=== PATIENT | female | born 1945 | race African-American/Black ===

== ENCOUNTER 2016-09-18 19:21 | Inpatient (IN) | payer OTHER, MEDICARE ==
[~2016-09-18] VITALS: Ht 167.6 cm; Wt 67.6 kg
[2016-09-18 20:30] VITALS: BP 110/71
--- NOTE | 2016-09-18 20:41 | Emergency Room Report ---
History of Present Illness General Chief Complaint: General Complaint Source: Patient, Medical Record Present Illness HPI Patient presents with complaints of right lower extremity pain and swelling Ongoing for the past several days Patient had a d-dimer obtained as an outpatient which was elevated and sent in for further eval Denies any chest pain or shortness of breath patient has a history of previous DVT, but it is unclear the specific location Denies any chest pain denies any pleurisy Denies any back or flank pain Pain in the right upper thigh is 5/10 worse with movement Allergies: Coded Allergies: No Known Allergies (Unverified , 09/18/16) Patient History Past Medical History: see triage record Pertinent Family History: none Reviewed Nursing Documentation: PMH: Agreed, PSxH: Agreed Nursing Documentation-PMH Hx Hypertension: Yes History Of Psychiatric Problem: Yes - Major depressive D/O Hx Cerebrovascular Accident: Yes - Left hemiplegia, hemiparesis Review of Systems All Other Systems: negative except mentioned in HPI Physical Exam Vital Signs Date Time Temp Pulse Resp B/P Pulse Ox O2 Delivery O2 Flow Rate FiO2 09/18/16 19:23 99.3 95 18 110/71 97 Room Air Sp02 EP Interpretation: reviewed, normal General Appearance: no apparent distress Head: normocephalic, atraumatic Eyes: bilateral eye PERRL ENT: normal pharynx, no angioedema Neck: full range of motion, supple Respiratory: lungs clear, normal breath sounds Cardiovascular #1: regular rate, rhythm, other - Dependent edema on both lower extremity Gastrointestinal: non tender, soft, no mass Musculoskeletal: other - Right lower extremity appears mildly more swollen than the left, pulses are intact distally Neurologic: alert, responsive Skin: other - As above Lymphatic: no adenopathy Medical Decision Making Diagnostic Impression: Primary Impression: DVT (deep venous thrombosis) Additional Impressions: Sepsis UTI (urinary tract infection) ER Course Patient's complex requiring blood work and imaging study Initially the right-sided vascular ultrasound does reveal acute DVT Patient is provided with Lovenox for this Further workup reveals leukocytosis and large amount of the UTI Patient was given further hydration and antibiotics Given the initial tachycardia in line with sepsis Patient's blood pressure is otherwise appropriate I do not feel the patient had any signs of pulmonary embolism as there is no chest pain or shortness of breath And patient admitted for further inpatient care , Labs Test 09/18/16 20:30 09/18/16 22:15 09/18/16 22:30 White Blood Count 19.1 K/UL (4.8-10.8) Red Blood Count 5.48 M/UL (4.20-5.40) Hemoglobin 12.4 G/DL (12.0-16.0) Hematocrit 41.3 % (37.0-47.0) Mean Corpuscular Volume 75 FL (80-99) Mean Corpuscular Hemoglobin 22.7 PG (27.0-31.0) Mean Corpuscular Hemoglobin Concent 30.1 G/DL (32.0-36.0) Red Cell Distribution Width 14.0 % (11.6-14.8) Platelet Count 441 K/UL (150-450) Mean Platelet Volume 7.0 FL (6.5-10.1) Neutrophils (%) (Auto) % (45.0-75.0) Lymphocytes (%) (Auto) % (20.0-45.0) Monocytes (%) (Auto) % (1.0-10.0) Eosinophils (%) (Auto) % (0.0-3.0) Basophils (%) (Auto) % (0.0-2.0) Differential Total Cells Counted 100 Neutrophils % (Manual) 74 % (45-75) Lymphocytes % (Manual) 19 % (20-45) Monocytes % (Manual) 3 % (1-10) Eosinophils % (Manual) 2 % (0-3) Basophils % (Manual) 2 % (0-2) Band Neutrophils 0 % (0-8) Platelet Estimate Increased Platelet Morphology Normal Polychromasia 1+ Anisocytosis 1+ Microcytosis 1+ Prothrombin Time 11.2 SEC (9.30-11.50) Prothromb Time International Ratio 1.1 (0.9-1.1) Activated Partial Thromboplast Time 28 SEC (23-33) Urine Color Yellow Urine Appearance Clear Urine pH 5 (4.5-8.0) Urine Specific [place] 1.020 (1.005-1.035) Urine Protein 3+ (NEGATIVE) Urine Glucose (UA) Negative (NEGATIVE) Urine Ketones Negative (NEGATIVE) Urine Occult Blood 5+ (NEGATIVE) Urine Nitrite Negative (NEGATIVE) Urine Bilirubin Negative (NEGATIVE) Urine Urobilinogen Normal MG/DL (0.0-1.0) Urine Leukocyte Esterase 3+ (NEGATIVE) Urine RBC 0-2 /HPF (0 - 2) Urine WBC Tntc /HPF (0 - 2) Urine Squamous Epithelial Cells Few /LPF (NONE/OCC) Urine Bacteria Many /HPF (NONE) Sodium Level 138 mEQ/L (135-145) Potassium Level 4.8 mEQ/L (3.4-4.9) Chloride Level 100 mEQ/L (98-107) Carbon Dioxide Level 22 mEQ/L (20-30) Anion Gap 16 (5-15) Blood Urea Nitrogen 11 mg/dL (7-23) Creatinine 0.7 mg/dL (0.5-0.9) Estimat Glomerular Filtration Rate mL/min (>60) Glucose Level 147 mg/dL (74-106) Calcium Level 8.8 mg/dL (8.6-10.2) Total Bilirubin 0.2 mg/dL (0.0-1.2) Aspartate Amino Transf (AST/SGOT) 16 U/L (5-40) Alanine Aminotransferase (ALT/SGPT) 8 U/L (3-33) Alkaline Phosphatase 47 U/L (35-104) Total Creatine Kinase 59 U/L (26-140) Creatine Kinase MB 2.6 ng/mL (< 3.8) Creatine Kinase MB Relative Index 4.4 Troponin I < 0.30 ng/mL (<=0.30) Total Protein 7.7 g/dL (6.6-8.7) Albumin 2.9 g/dL (3.5-5.2) Globulin 4.8 g/dL Albumin/Globulin Ratio 0.6 (1.0-2.7) Rhythm Strip Diag. Results EP Interpretation: yes Rate: 120 Rhythm: no PVC's, no ectopy, other - sinus tach Other X-Ray Diagnostic Results Other X-Ray Diagnostic Results #1: EP Interpretation: Yes Findings: no fractures, no dislocation, no soft tissue swelling Number of Views: 2 - right hip Other X-Ray Diagnostic Results #2: EP Interpretation: Yes Findings: no fractures, no dislocation, no soft tissue swelling Number of Views: 2 - right femur CT/MRI/US Diagnostic Results CT/MRI/US Diagnostic Results : Impression Right lower extremity venous ultrasound: Positive for acute DVT Last Vital Signs Date Time Temp Pulse Resp B/P Pulse Ox O2 Delivery O2 Flow Rate FiO2 09/18/16 20:30 99.3 95 18 110/71 97 Room Air Status: improved Disposition: ADMITTED INPATIENT Condition: Serious ELIE HAMMONDS D.O. Sep 18, 2016 20:40
[2016-09-18 20:58] LABS: MEAN CORPUSCULAR HEMOGLOBIN 22.7 PG (27.0-31.0); MEAN CORPUSCULAR HGB CONC 30.1 G/DL (32.0-36.0); MEAN CORPUSCULAR VOLUME 75 FL (80-99); PLATELET COUNT 441 K/UL (150-450); RED BLOOD COUNT 5.48 M/UL (4.20-5.40); WHITE BLOOD COUNT 19.1 K/UL (4.8-10.8)
[2016-09-18 21:00] VITALS: BP 139/99
[2016-09-18] MEDS ORDERED: Enoxaparin 80mg Inj SUBQ SCH (21:00)
[2016-09-18] MEDS ORDERED: cefTRIAXone 1 GM in NS 55 ML IVPB ONE (21:00)
[2016-09-18] MEDS ORDERED: Norco 5mg/325mg tab ORAL ONE (21:00)
[2016-09-18 21:11] LABS: INR 1.1 (0.9-1.1); PROTHROMBIN TIME 11.2 SEC (9.30-11.50)
[2016-09-18] MEDS ORDERED: Heparin 25,000u/D5W 500ml 500 ML IV SCH (21:45)
[2016-09-18] MEDS ORDERED: Nitroglycerin Subl 0.4mg tab (Bottle Of 25) SL PRN (21:45)
[2016-09-18] MEDS ORDERED: DuoNeb 0.5-3(2.5)mg/3ml neb HHN PRN (21:45)
[2016-09-18] MEDS ORDERED: Mylanta II UD 30ml ORAL PRN (21:45)
[2016-09-18] MEDS ORDERED: Miralax 17gm pkt ORAL PRN (21:45)
[2016-09-18] MEDS ORDERED: Morphine Sulfate 2mg/ml Inj IVP PRN (21:45)
[2016-09-18 21:46] LABS: BASOPHILS % (MANUAL) 2 % (0-2); EOSINOPHILS % (MANUAL) 2 % (0-3); LYMPHOCYTES % (MANUAL) 19 % (20-45); NEUTROPHILS % (MANUAL) 74 % (45-75); TOTAL CELLS COUNTED 100
[2016-09-18 21:47] LABS: ANISOCYTOSIS 1+; BAND NEUTROPHILS % (MANUAL) 0 % (0-8); MICROCYTES 1+; PLATELET ESTIMATE INCREASED; PLATELET MORPHOLOGY NORMAL; POLYCHROMASIA 1+
[2016-09-18] MEDS ORDERED: FERROUS SULFAT325 MG ORAL (21:59)
[2016-09-18] MEDS ORDERED: COREG12.5 MG ORAL (21:59)
[2016-09-18] MEDS ORDERED: ARICEPT10 MG ORAL (21:59)
[2016-09-18] MEDS ORDERED: DOCUSATE SODIU100 M2 ORAL (21:59)
[2016-09-18] MEDS ORDERED: CYMBALTA20 MG ORAL (21:59)
[2016-09-18] MEDS ORDERED: TRAZODONE HCL150 MG ORAL (21:59)
[2016-09-18] MEDS ORDERED: LIPITOR20 MG ORAL (21:59)
[2016-09-18] MEDS ORDERED: TYLENOL650 MG/20. ORAL (21:59)
[2016-09-18] MEDS ORDERED: VICODIN 5-3001 EACH ORAL (21:59)
[2016-09-18] MEDS ORDERED: VIT D (21:59)
[2016-09-18] MEDS ORDERED: MULTI VITAMIN1 EACH ORAL (21:59)
[2016-09-18] MEDS ORDERED: DULCOLAX10 MG RC (21:59)
[2016-09-18] MEDS ORDERED: PEPCID20 MG ORAL (21:59)
[2016-09-18] MEDS ORDERED: ACETAMINOPHEN120 MG RECTAL (21:59)
[2016-09-18] MEDS ORDERED: FLEET ENEMA133 M1 RC (21:59)
[2016-09-18] MEDS ORDERED: VIT C (21:59)
[2016-09-18] MEDS ORDERED: MOM30 ML ORAL (21:59)
[2016-09-18] MEDS ORDERED: QUINAPRIL HCL40 MG PO (21:59)
[2016-09-18 22:00] VITALS: BP 150/91
[2016-09-18 22:52] LABS: TROPONIN I < 0.30 ng/mL (<=0.30)
[2016-09-18 22:54] LABS: APPEARANCE,URINE CLEAR; KETONES,URINE NEGATIVE (NEGATIVE); LEUKOCYTE ESTERASE ,URINE 3+ (NEGATIVE); NITRITE,URINE NEGATIVE (NEGATIVE); PH,URINE 5 (4.5-8.0); PROTEIN,URINE 3+ (NEGATIVE); UROBILINOGEN,URINE NORMAL MG/DL (0.0-1.0)
[2016-09-18 22:55] LABS: ALANINE AMINOTRANSFERASE 8 U/L (3-33); ALBUMIN/GLOBULIN RATIO 0.6 (1.0-2.7); ANION GAP 16 (5-15); ASPARTATE AMINO TRANSFERASE 16 U/L (5-40); CALCIUM 8.8 mg/dL (8.6-10.2); CARBON DIOXIDE 22 mEQ/L (20-30); CHLORIDE 100 mEQ/L (98-107); CREATININE 0.7 mg/dL (0.5-0.9); HEMOLYSIS 1; POTASSIUM 4.8 mEQ/L (3.4-4.9); SODIUM 138 mEQ/L (135-145); TOTAL PROTEIN 7.7 g/dL (6.6-8.7)
[2016-09-18 23:06] LABS: CKMB 2.6 ng/mL (< 3.8)
[2016-09-18 23:19] LABS: RBC,URINE 0-2 /HPF (0 - 2); SQUAMOUS EPITHELIAL CELL,UR FEW /LPF (NONE/OCC); WBC,URINE TNTC /HPF (0 - 2)
[2016-09-18 23:20] LABS: BACTERIA,URINE MANY /HPF
[2016-09-19] VITALS (8 sets, daily range): BP systolic 138–178; BP diastolic 79–98
[2016-09-19 07:48] LABS: BASOPHILS % (AUTO) 0.6 % (0.0-2.0); EOSINOPHILS % (AUTO) 1.3 % (0.0-3.0); LYMPHOCYTES % (AUTO) 22.8 % (20.0-45.0); MEAN CORPUSCULAR HEMOGLOBIN 22.7 PG (27.0-31.0); MEAN CORPUSCULAR HGB CONC 30.7 G/DL (32.0-36.0); MEAN CORPUSCULAR VOLUME 74 FL (80-99); MEAN PLATELET VOLUME 6.7 FL (6.5-10.1); MONOCYTES % (AUTO) 8.8 % (1.0-10.0); NEUTROPHILS % (AUTO) 66.4 % (45.0-75.0); PLATELET COUNT 366 K/UL (150-450); RED BLOOD COUNT 4.49 M/UL (4.20-5.40); RED CELL DISTRIBUTION WIDTH 13.5 % (11.6-14.8); WHITE BLOOD COUNT 14.9 K/UL (4.8-10.8)
[2016-09-19] MEDS ORDERED: Heparin 25,000u/D5W 500ml 500 ML IV SCH (08:00)
[2016-09-19 08:03] LABS: INR 1.1 (0.9-1.1); PROTHROMBIN TIME 11.4 SEC (9.30-11.50)
[2016-09-19 08:06] LABS: ALANINE AMINOTRANSFERASE 8 U/L (3-33); ALBUMIN/GLOBULIN RATIO 0.6 (1.0-2.7); ANION GAP 13 (5-15); ASPARTATE AMINO TRANSFERASE 14 U/L (5-40); CALCIUM 8.6 mg/dL (8.6-10.2); CARBON DIOXIDE 24 mEQ/L (20-30); CHLORIDE 100 mEQ/L (98-107); CREATININE 0.7 mg/dL (0.5-0.9); HEMOLYSIS 0; POTASSIUM 4.1 mEQ/L (3.4-4.9); SODIUM 137 mEQ/L (135-145); TOTAL PROTEIN 7.6 g/dL (6.6-8.7)
--- NOTE | 2016-09-19 11:53 | Diagnostic Imaging Report ---
Indications: hip pain Findings: Two views of the right hip were obtained. Bone mineralization is abnormal with somewhat mottled appearance throughout the osseous structures. The mineralization is diffuse. There is no acute fracture identified. Center vascular calcifications are present. Narrowing of the right hip joint space and osteophytes noted. Impression: No acute fracture appreciated. Moderate to severe osteopenia
--- NOTE | 2016-09-19 12:01 | History and Physical ---
History of Present Illness General Date patient seen: Sep 19, 2016 Reason for Hospitalization: General Complaint Present Illness HPI 71 year old female with hx of CVA, hemiplegia, depression, [facility] presents with complaints of right lower extremity pain and swelling Ongoing for the past several days, she had a d-dimer obtained as an outpatient which was elevated and sent in for further evaluation. Pt had a venous doppler in ER showing acute DVT ( reportedly). she was also found to have UTI with leukocytosis. Allergies: Coded Allergies: No Known Allergies (Unverified , 09/18/16) Medication History Scheduled Atorvastatin Calcium* (Lipitor*), 20 MG ORAL BEDTIME, (Reported) Carvedilol (Coreg), 12.5 MG ORAL EVERY 12 HOURS, (Reported) Docusate Sodium (Docusate Sodium), 100 MG ORAL TWICE A DAY, (Reported) Donepezil Hcl* (Aricept*), 10 MG ORAL DAILY, (Reported) Duloxetine (Cymbalta), 90 MG ORAL DAILY, (Reported) Famotidine (Pepcid), 20 MG ORAL BEDTIME, (Reported) Ferrous Sulfate* (Ferrous Sulfate*), 325 MG ORAL DAILY, (Reported) Magnesium Hydroxide (Milk of Magnesia), 30 ML ORAL DAILY, (Reported) Multivitamin (Multi Vitamin Daily), 1 TAB ORAL DAILY, (Reported) Trazodone* (Trazodone*), 150 MG ORAL BEDTIME, (Reported) Scheduled PRN Acetaminophen (Acetaminophen), 650 MG ORAL Q4HR PRN for Prn Headache/Temp > 101, (Reported) Acetaminophen* (Tylenol*), 650 MG RECTAL Q4H PRN for Mild Pain/Temp > 100.5, ( Reported) Hydrocodone Bit/Acetaminophen (Vicodin 5-300 Mg Tablet), 1 TAB ORAL Q6H PRN for For Pain, (Reported) Miscellaneous Medications Bisacodyl (Dulcolax), 10 MG RC, (Reported) Na Phos,M-B/Na Phos,Di-Ba (Fleet Enema), 133 ML RC, (Reported) Quinapril Hcl (Quinapril Hcl), 40 MG PO, (Reported) [vit c/ vit d], (Reported) Patient History Healthcare decision maker Resuscitation status Full Code Advanced Directive on File Yes Past Medical/Surgical History Past Medical/Surgical History: (1) History of CVA (cerebrovascular accident) (2) Hemiplegia (3) Depression Social History Social History: (1) [facility] resident Review of Systems All Other Systems: negative except mentioned in HPI Physical Exam General Appearance: WD/WN Lines, tubes and drains: peripheral HEENT: normocephalic, atraumatic Neck: non-tender, normal alignment Respiratory/Chest: chest wall non-tender, lungs clear Breasts: no masses Cardiovascular/Chest: normal peripheral pulses, normal rate Abdomen: normal bowel sounds Genitourinary/Rectal: normal genital exam Extremities: normal range of motion Last 24 Hour Vital Signs Date Time Temp Pulse Resp B/P Pulse Ox O2 Delivery O2 Flow Rate FiO2 09/19/16 08:00 97.9 95 17 161/87 96 Room Air 09/19/16 07:50 101 20 Room Air 21 09/19/16 04:00 98.4 101 18 152/97 98 Room Air 09/19/16 04:00 97 09/19/16 02:39 98 20 Room Air 21 09/19/16 00:00 97.0 98 20 138/90 97 Room Air 09/19/16 00:00 90 09/18/16 23:08 97 09/18/16 22:46 99.3 107 18 150/91 99 Room Air 09/18/16 22:00 107 18 150/91 99 Room Air 09/18/16 21:10 99.3 09/18/16 21:00 122 22 139/99 97 Room Air 09/18/16 20:30 99.3 134 18 110/71 97 Room Air 09/18/16 19:23 99.3 95 18 110/71 97 Room Air Intake and Output 09/18/16 09/19/16 19:00 07:00 Intake Total 1255 ml Output Total 120 ml Balance 1135 ml Intake Oral 200 ml IV Total 1055 ml Output Urine Total 120 ml # Voids 1 Laboratory Tests Test 09/18/16 20:30 09/18/16 22:15 09/18/16 22:30 09/19/16 07:05 White Blood Count 19.1 K/UL (4.8-10.8) H 14.9 K/UL (4.8-10.8) H Red Blood Count 5.48 M/UL (4.20-5.40) H 4.49 M/UL (4.20-5.40) Hemoglobin 12.4 G/DL (12.0-16.0) 10.2 G/DL (12.0-16.0) L Hematocrit 41.3 % (37.0-47.0) 33.2 % (37.0-47.0) L Mean Corpuscular Volume 75 FL (80-99) L 74 FL (80-99) L Mean Corpuscular Hemoglobin 22.7 PG (27.0-31.0) L 22.7 PG (27.0-31.0) L Mean Corpuscular Hemoglobin Concent 30.1 G/DL (32.0-36.0) L 30.7 G/DL (32.0-36.0) L Red Cell Distribution Width 14.0 % (11.6-14.8) 13.5 % (11.6-14.8) Platelet Count 441 K/UL (150-450) 366 K/UL (150-450) Mean Platelet Volume 7.0 FL (6.5-10.1) 6.7 FL (6.5-10.1) Neutrophils (%) (Auto) % (45.0-75.0) 66.4 % (45.0-75.0) Lymphocytes (%) (Auto) % (20.0-45.0) 22.8 % (20.0-45.0) Monocytes (%) (Auto) % (1.0-10.0) 8.8 % (1.0-10.0) Eosinophils (%) (Auto) % (0.0-3.0) 1.3 % (0.0-3.0) Basophils (%) (Auto) % (0.0-2.0) 0.6 % (0.0-2.0) Differential Total Cells Counted 100 Neutrophils % (Manual) 74 % (45-75) Lymphocytes % (Manual) 19 % (20-45) L Monocytes % (Manual) 3 % (1-10) Eosinophils % (Manual) 2 % (0-3) Basophils % (Manual) 2 % (0-2) Band Neutrophils 0 % (0-8) Platelet Estimate Increased H Platelet Morphology Normal Polychromasia 1+ Anisocytosis 1+ Microcytosis 1+ Prothrombin Time 11.2 SEC (9.30-11.50) 11.4 SEC (9.30-11.50) Prothromb Time International Ratio 1.1 (0.9-1.1) 1.1 (0.9-1.1) Activated Partial Thromboplast Time 28 SEC (23-33) 31 SEC (23-33) Urine Color Yellow Urine Appearance Clear Urine pH 5 (4.5-8.0) Urine Specific [place] 1.020 (1.005-1.035) Urine Protein 3+ (NEGATIVE) H Urine Glucose (UA) Negative (NEGATIVE) Urine Ketones Negative (NEGATIVE) Urine Occult Blood 5+ (NEGATIVE) H Urine Nitrite Negative (NEGATIVE) Urine Bilirubin Negative (NEGATIVE) Urine Urobilinogen Normal MG/DL (0.0-1.0) Urine Leukocyte Esterase 3+ (NEGATIVE) H Urine RBC 0-2 /HPF (0 - 2) Urine WBC Tntc /HPF (0 - 2) H Urine Squamous Epithelial Cells Few /LPF (NONE/OCC) Urine Bacteria Many /HPF (NONE) H Sodium Level 138 mEQ/L (135-145) 137 mEQ/L (135-145) Potassium Level 4.8 mEQ/L (3.4-4.9) 4.1 mEQ/L (3.4-4.9) Chloride Level 100 mEQ/L (98-107) 100 mEQ/L (98-107) Carbon Dioxide Level 22 mEQ/L (20-30) 24 mEQ/L (20-30) Anion Gap 16 (5-15) H 13 (5-15) Blood Urea Nitrogen 11 mg/dL (7-23) 13 mg/dL (7-23) Creatinine 0.7 mg/dL (0.5-0.9) 0.7 mg/dL (0.5-0.9) Estimat Glomerular Filtration Rate mL/min (>60) mL/min (>60) Glucose Level 147 mg/dL (74-106) H 112 mg/dL (74-106) H Calcium Level 8.8 mg/dL (8.6-10.2) 8.6 mg/dL (8.6-10.2) Total Bilirubin 0.2 mg/dL (0.0-1.2) 0.2 mg/dL (0.0-1.2) Aspartate Amino Transf (AST/SGOT) 16 U/L (5-40) 14 U/L (5-40) Alanine Aminotransferase (ALT/SGPT) 8 U/L (3-33) 8 U/L (3-33) Alkaline Phosphatase 47 U/L (35-104) 46 U/L (35-104) Total Creatine Kinase 59 U/L (26-140) Creatine Kinase MB 2.6 ng/mL (< 3.8) Creatine Kinase MB Relative Index 4.4 Troponin I < 0.30 ng/mL (<=0.30) Total Protein 7.7 g/dL (6.6-8.7) 7.6 g/dL (6.6-8.7) Albumin 2.9 g/dL (3.5-5.2) L 2.9 g/dL (3.5-5.2) L Globulin 4.8 g/dL 4.7 g/dL Albumin/Globulin Ratio 0.6 (1.0-2.7) L 0.6 (1.0-2.7) L Height (Feet): 5 Height (Inches): 6.00 Weight (Pounds): 149 Medications Current Medications Medications (Trade) Dose Ordered Sig/Claudia Route PRN Reason Start Time Stop Time Status Last Admin Dose Admin Acetaminophen (Tylenol) 650 mg Q4H PRN ORAL fever 09/18/16 21:45 10/18/16 21:44 09/19/16 11:29 Al Hydroxide/Mg Hydroxide (Mylanta II) 30 ml Q6H PRN ORAL dyspepsia 09/18/16 21:45 10/18/16 21:44 Albuterol/ Ipratropium 3 ml 3 ml EVERY 8 HOURS PRN HHN Shortness of Breath 09/18/16 21:45 09/23/16 21:44 Dextrose (Dextrose 50%) STAT PRN IV Hypoglycemia 09/18/16 21:45 10/18/16 21:44 Heparin Sodium/ Dextrose (Heparin) 500 ml @ 15.894 mls/ hr adjust per protocol IV 09/19/16 08:00 10/19/16 07:59 09/19/16 08:51 Morphine Sulfate (Morphine Sulfate) 2 mg EVERY 8 HOURS PRN IVP Moderate Pain (Pain Scale 4-6) 09/18/16 21:45 09/25/16 21:44 Nitroglycerin (Ntg) 0.4 mg Q5M X 3 DOSES PRN SL Prn Chest Pain 09/18/16 21:45 10/18/16 21:44 Ondansetron HCl (Zofran) 4 mg Q6H PRN IVP Nausea & Vomiting 09/18/16 21:45 10/18/16 21:44 Polyethylene Glycol (Miralax) 17 gm HSPRN PRN ORAL Constipation 09/18/16 21:45 10/18/16 21:44 Temazepam (Restoril) 15 mg HSPRN PRN ORAL Insomnia 09/18/16 21:45 09/25/16 21:44 Assessment/Plan Problem List: (1) Sepsis ICD Codes: A41.9 - Sepsis, unspecified organism SNOMED: 14577327 (2) UTI (urinary tract infection) ICD Codes: N39.0 - Urinary tract infection, site not specified SNOMED: 07377108 Qualifiers: Qualified Codes: N30.00 - Acute cystitis without hematuria (3) DVT (deep venous thrombosis) ICD Codes: I82.409 - Acute embolism and thrombosis of unspecified deep veins of unspecified lower extremity SNOMED: 464851339 Qualifiers: Qualified Codes: I82.411 - Acute embolism and thrombosis of right femoral vein (4) Hemiplegia ICD Codes: G81.90 - Hemiplegia, unspecified affecting unspecified side SNOMED: 36853848 (5) Depression ICD Codes: F32.9 - Major depressive disorder, single episode, unspecified SNOMED: 97702810 Qualifiers: Qualified Codes: F32.9 - Major depressive disorder, single episode, unspecified (6) History of CVA (cerebrovascular accident) ICD Codes: Z86.73 - Personal history of transient ischemic attack (TIA), and cerebral infarction without residual deficits SNOMED: 076725942 Assessment/Plan heparin IV antibiotics urine for c/s pain management monitor BP and heart rate MARYAM BATES Sep 19, 2016 12:01
[2016-09-19] MEDS ORDERED: Donepezil 10mg tab ORAL SCH (13:00)
--- NOTE | 2016-09-19 13:33 | Diagnostic Imaging Report ---
Indication: Chest Pain Comparison: None A single view chest radiograph was obtained. Findings: No definite infiltrate or pulmonary vascular congestion identified. The heart is enlarged. The aorta is mildly enlarged consistent with atherosclerotic vascular disease. The bones are osteopenic. Impression: No acute disease
--- NOTE | 2016-09-19 14:09 | Consultation ---
Consult Note Consult Note ID CONSULT: Dict# [id number] Assessment/Plan ASSESSMENT: 71 y/o female with: // Pyuria, probable UTI - UCx pending // Leukocytosis - improved, afebrile ( DVT contributing ) // Acute RLE DVT - doppler: acute thrombus superficial femoral to popliteal veins // h/o CVA, hemiplegia // [facility] resident // NKDA // Full Code PLAN: - start cefepime d# / -5 urinary coverage. Ok to complete course orally, if sensitive ( 09/18 SP rocephin x1 ) - f/u cultures, adjust ABX accordingly - monitor CBC, temperatures - monitor BMP - monitor CXR - anticoagulation per primary Thanks! Will follow MARA HASSAN Sep 19, 2016 14:09
[2016-09-19] MEDS ORDERED: Nitroglycerin Subl 0.4mg tab (Bottle Of 25) SL PRN (15:00)
--- NOTE | 2016-09-19 15:40 | Diagnostic Imaging Report ---
Indication: Hip pain Technique: Continuous helical imaging of the right femur was performed in the transaxial plane. Coronal 2-D reformatted images were also generated. Study obtained in a Siemens Sensation [address] total DLP 557 mGycm CTD/vol 9 mGy Comparison: None Findings: The CT examination confirms presence of a nondisplaced fracture involving the metadiaphysis of the distal femur along the medial aspect of the femur. This was suspected on plain film. This is seen just above the medial femoral condyle. The bones are diffusely and severely osteopenic. Extensive vascular consultations are present. The right femoral neck and hip appear intact. Moderate feces noted. Generalized muscular atrophy noted within the right lower extremity. Impression: Acute nondisplaced fracture of the right distal femur in the area of the metadiaphysis. Severe osteopenia Atherosclerotic vascular disease
[2016-09-19] MEDS ORDERED: Mylanta II UD 30ml ORAL PRN (15:45)
[2016-09-19] MEDS ORDERED: Heparin 5000 units/ml inj IV ONE (16:00)
[2016-09-19] MEDS ORDERED: Cefepime HCl 1 GM in D5W 55 ML IVPB SCH (16:00)
--- NOTE | 2016-09-19 16:01 | Diagnostic Imaging Report ---
Indication: Pain Findings: 2 views of the right femur were obtained. Bones are diffusely osteopenic. There is a questionable fracture involving the midshaft extending to the lower part of the femur. If real, the fracture is nondisplaced. Recommend CT for further evaluation. Extensive vascular calcifications are present. Impression: Questionable distal femur fracture. Recommend CT or MR for further evaluation.
[2016-09-19] MEDS: Cefepime HCl 1 GM in D5W 55 ML IVPB SCH (17:07)
[2016-09-19] MEDS: Heparin 25,000u/D5W 500ml 500 ML IV SCH (17:08)
--- NOTE | 2016-09-19 19:58 | Consultation ---
DATE OF CONSULTATION: 09/19/2016 INFECTIOUS DISEASE CONSULTATION REQUESTING PHYSICIAN: Otoniel Nicole M.D. REASON FOR CONSULTATION: Urinary tract infection. HISTORY OF PRESENT ILLNESS: This is a 71-year-old female, [facility] resident, admitted on 09/18/2015 with right lower extremity pain and elevated D-dimer. A Doppler confirmed acute thrombus of the right superficial femoral to popliteal veins. Urinalysis also suggests probable UTI with pyuria and bacteriuria. She received Rocephin x1 in the emergency room with associated leukocytosis, now improved and no fevers. Urine culture is pending and ID now consulted to assist in management. PAST MEDICAL HISTORY: 1. History of stroke with hemiplegia. 2. Osteopenia. PAST SURGICAL HISTORY: None. MEDICATIONS: 1. Status post Rocephin x1. 2. Cymbalta. 3. Lipitor. 4. Coreg. 5. Trazodone. 6. Aricept. 7. Subcutaneous heparin. ALLERGIES: No known drug allergies. SOCIAL HISTORY: The patient is resident of a [facility]. No active tobacco, alcohol, or illicit drug abuse. FAMILY HISTORY: Noncontributory. REVIEW OF SYSTEMS: As per history of present illness. Ten systems reviewed. All pertinent positives and negatives noted. PHYSICAL EXAMINATION: GENERAL: No apparent distress. Nontoxic appearing. VITAL SIGNS: Maximum temperature 99.3 degrees, blood pressure 148/86, heart rate in the 90s, respiratory rate is 17 and saturating 95% on room air. CARDIOVASCULAR: Regular rate and rhythm. No murmurs. PULMONARY: Clear to auscultation bilaterally. ABDOMEN: Bowel sounds present. Soft, nondistended, and nontender. Christianson catheter in place with cloudy urine. EXTREMITIES: Right lower extremity tenderness and swelling. LABORATORY AND DIAGNOSTIC DATA: White blood cell count 14.9 decreased from 19.1 with normal differential, hemoglobin 10.2, and platelets 366,000. Sodium 137, potassium 4.1, chloride 100, bicarbonate 24, BUN 13, and creatinine 0.7. Liver function tests within normal limits. Troponin negative x1. Microbiology, on 09/18/2016, urine culture pending. Imaging 1. On 09/19/2016, chest x-ray no acute findings. 2. On 09/19/2016, bilateral lower extremity Doppler ultrasound positive for acute thrombosis of right superficial femoral to popliteal vein. 3. On 09/18/2016, echocardiogram ejection fraction 55% with trace aortic and tricuspid regurgitation and mild mitral and pulmonic valve regurgitation and grade 1 diastolic dysfunction. ASSESSMENT: 1. Pyuria and probable urinary tract infection. Urine culture is pending. 2. Leukocytosis, improved and afebrile. Deep vein thrombosis is contributing. 3. Acute right lower extremity deep vein thrombosis. 4. History of stroke and hemiplegia. 5. shelter resident. 6. No known drug allergies. 7. Full Code. PLAN: 1. Start Cefepime day #1 urinary coverage. Okay to complete course orally of sensitive. 2. Follow up cultures and adjust antibiotics accordingly. 3. Monitor CBC and temperatures. 4. Monitor BMP. 5. Monitor chest x-ray. 6. Anticoagulation per primary. Thank you. We will follow. Davin Rg M.D. DR: LUIS JOB#: [id number] CC: Marcio West M.D. Arash Alborzi, M.D
[2016-09-19] MEDS ORDERED: Carvedilol 12.5mg tab ORAL SCH (21:00)
[2016-09-19] MEDS ORDERED: TraZODone 100mg tab ORAL SCH (21:00)
[2016-09-19] MEDS ORDERED: Atorvastatin 20mg tab ORAL SCH (21:00)
[2016-09-19] MEDS: Carvedilol 12.5mg tab ORAL SCH (21:38)
[2016-09-19] MEDS: Atorvastatin 20mg tab ORAL SCH (21:39)
[2016-09-19] MEDS ORDERED: Miralax 17gm pkt ORAL PRN (21:45)
[2016-09-19] MEDS: TraZODone 100mg tab ORAL SCH (21:49)
[2016-09-19] MEDS ORDERED: DuoNeb 0.5-3(2.5)mg/3ml neb HHN PRN (22:00)
[2016-09-20] VITALS: BP 130/72
[2016-09-20] MEDS: Morphine Sulfate 2mg/ml Inj IVP PRN ×3 (01:44→16:39)
[2016-09-20 04:00] VITALS: BP 138/73
[2016-09-20 07:20] LABS: BASOPHILS % (AUTO) 0.5 % (0.0-2.0); EOSINOPHILS % (AUTO) 3.9 % (0.0-3.0); LYMPHOCYTES % (AUTO) 28.4 % (20.0-45.0); MEAN CORPUSCULAR HEMOGLOBIN 22.6 PG (27.0-31.0); MEAN CORPUSCULAR HGB CONC 30.7 G/DL (32.0-36.0); MEAN CORPUSCULAR VOLUME 74 FL (80-99); MEAN PLATELET VOLUME 6.6 FL (6.5-10.1); NEUTROPHILS % (AUTO) 60.2 % (45.0-75.0); PLATELET COUNT 306 K/UL (150-450); RED BLOOD COUNT 3.97 M/UL (4.20-5.40); RED CELL DISTRIBUTION WIDTH 13.1 % (11.6-14.8); WHITE BLOOD COUNT 13.2 K/UL (4.8-10.8)
[2016-09-20 07:33] LABS: ALANINE AMINOTRANSFERASE 8 U/L (3-33); ALBUMIN/GLOBULIN RATIO 0.6 (1.0-2.7); ANION GAP 16 (5-15); ASPARTATE AMINO TRANSFERASE 15 U/L (5-40); CALCIUM 8.7 mg/dL (8.6-10.2); CARBON DIOXIDE 22 mEQ/L (20-30); CHLORIDE 101 mEQ/L (98-107); CREATININE 0.7 mg/dL (0.5-0.9); HEMOLYSIS 2; PHOSPHORUS 3.3 mg/dL (2.5-4.8); POTASSIUM 4.1 mEQ/L (3.4-4.9); SODIUM 139 mEQ/L (135-145); TOTAL PROTEIN 7.3 g/dL (6.6-8.7)
[2016-09-20 07:53] LABS: INR 1.1 (0.9-1.1); PROTHROMBIN TIME 11.4 SEC (9.30-11.50)
[2016-09-20 08:00] VITALS: BP 133/70
[2016-09-20] MEDS: Donepezil 10mg tab ORAL SCH (08:54)
[2016-09-20] MEDS: Carvedilol 12.5mg tab ORAL SCH ×2 (08:54→21:07)
[2016-09-20] MEDS ORDERED: Heparin 5000 units/ml inj IV ONE (09:30)
[2016-09-20] MEDS: Heparin 25,000u/D5W 500ml 500 ML IV SCH (10:29)
[2016-09-20 12:00] VITALS: BP 136/72
[2016-09-20] MEDS: DULoxetine 30mg cap ORAL SCH (13:21)
[2016-09-20] MEDS ORDERED: DULoxetine 30mg cap ORAL SCH (14:00)
--- NOTE | 2016-09-20 15:38 | Infectious Diseases Prog Note ---
Assessment/Plan Assessment/Plan ASSESSMENT: 71 y/o female with: // GNR UTI - C&S pending // Leukocytosis - improved, afebrile ( DVT, fx contributing ) // Acute nondisplaced fracture of the right distal femur // Acute RLE DVT - doppler: acute thrombus superficial femoral to popliteal veins // h/o CVA, hemiplegia // [facility] resident // NKDA // Full Code PLAN: - continue cefepime d# 2 / 3-5 urinary coverage. Ok to complete course orally, if sensitive ( 09/18 SP rocephin x1 ) - ortho eval - f/u cultures, adjust ABX accordingly - monitor CBC, temperatures - monitor BMP - monitor CXR - anticoagulation per primary Subjective Allergies: Coded Allergies: No Known Allergies (Unverified , 09/18/16) Subjective remains aebrile. appears comfortable Objective Vital Signs Last 24 Hour Vital Signs Date Time Temp Pulse Resp B/P Pulse Ox O2 Delivery O2 Flow Rate FiO2 09/20/16 12:00 97.7 84 20 136/72 95 Room Air 09/20/16 11:20 98.4 09/20/16 08:54 92 133/70 09/20/16 08:00 98.4 92 20 133/70 96 Room Air 09/20/16 07:50 92 18 Room Air 21 09/20/16 04:00 98.1 85 20 138/73 95 Room Air 09/20/16 00:00 98.1 84 19 130/72 98 Room Air 09/19/16 21:38 82 166/79 09/19/16 21:10 82 18 Room Air 21 09/19/16 20:45 152/81 09/19/16 20:39 98.1 73 19 166/79 96 Room Air 09/19/16 19:08 178/92 09/19/16 18:00 150/98 09/19/16 16:34 97.0 85 19 178/92 98 Room Air Height (Feet): 5 Height (Inches): 6.00 Weight (Pounds): 149 General Appearance: no acute distress Respiratory/Chest: no respiratory distress Cardiovascular: normal rate, regular rhythm Abdomen: normal bowel sounds, soft, non tender, non distended Microbiology Date/Time Source Procedure Growth Status 09/18/16 22:15 Urine,Clean Catch Urine Culture - Preliminary Gram Negative Bacillus 1 Resulted Laboratory Tests Test 09/19/16 23:00 09/20/16 05:50 Activated Partial Thromboplast Time 87 SEC (23-33) H 61 SEC (23-33) H White Blood Count 13.2 K/UL (4.8-10.8) H Red Blood Count 3.97 M/UL (4.20-5.40) L Hemoglobin 9.0 G/DL (12.0-16.0) L Hematocrit 29.2 % (37.0-47.0) L Mean Corpuscular Volume 74 FL (80-99) L Mean Corpuscular Hemoglobin 22.6 PG (27.0-31.0) L Mean Corpuscular Hemoglobin Concent 30.7 G/DL (32.0-36.0) L Red Cell Distribution Width 13.1 % (11.6-14.8) Platelet Count 306 K/UL (150-450) Mean Platelet Volume 6.6 FL (6.5-10.1) Neutrophils (%) (Auto) 60.2 % (45.0-75.0) Lymphocytes (%) (Auto) 28.4 % (20.0-45.0) Monocytes (%) (Auto) 7.0 % (1.0-10.0) Eosinophils (%) (Auto) 3.9 % (0.0-3.0) H Basophils (%) (Auto) 0.5 % (0.0-2.0) Prothrombin Time 11.4 SEC (9.30-11.50) Prothromb Time International Ratio 1.1 (0.9-1.1) Sodium Level 139 mEQ/L (135-145) Potassium Level 4.1 mEQ/L (3.4-4.9) Chloride Level 101 mEQ/L (98-107) Carbon Dioxide Level 22 mEQ/L (20-30) Anion Gap 16 (5-15) H Blood Urea Nitrogen 12 mg/dL (7-23) Creatinine 0.7 mg/dL (0.5-0.9) Estimat Glomerular Filtration Rate mL/min (>60) Glucose Level 88 mg/dL (74-106) Calcium Level 8.7 mg/dL (8.6-10.2) Phosphorus Level 3.3 mg/dL (2.5-4.8) Magnesium Level 2.0 mg/dL (1.7-2.5) Total Bilirubin 0.2 mg/dL (0.0-1.2) Aspartate Amino Transf (AST/SGOT) 15 U/L (5-40) Alanine Aminotransferase (ALT/SGPT) 8 U/L (3-33) Alkaline Phosphatase 46 U/L (35-104) Total Protein 7.3 g/dL (6.6-8.7) Albumin 2.9 g/dL (3.5-5.2) L Globulin 4.4 g/dL Albumin/Globulin Ratio 0.6 (1.0-2.7) L Current Medications Medications (Trade) Dose Ordered Sig/Claudia Route PRN Reason Start Time Stop Time Status Last Admin Dose Admin Acetaminophen (Tylenol) 650 mg Q4H PRN ORAL fever 09/19/16 17:45 10/19/16 17:44 09/20/16 14:36 Al Hydroxide/Mg Hydroxide (Mylanta II) 30 ml Q6H PRN ORAL dyspepsia 09/19/16 15:45 10/19/16 15:44 Albuterol/ Ipratropium (DuoNeb 0.5-3(2.5)mg/3ml) 3 ml EVERY 8 HOURS PRN HHN Shortness of Breath 09/19/16 22:00 09/24/16 21:59 Atorvastatin Calcium (Lipitor) 20 mg BEDTIME ORAL 09/19/16 21:00 10/19/16 20:59 09/19/16 21:39 Bisacodyl (Dulcolax) 10 mg DAILYPRN PRN RECTAL constipation 09/20/16 11:45 10/20/16 11:44 Carvedilol (Coreg) 12.5 mg EVERY 12 HOURS ORAL 09/19/16 21:00 10/19/16 20:59 09/20/16 08:54 Cefepime HCl 1 gm/ Dextrose 55 ml @ 110 mls/hr Q24H IVPB 09/19/16 16:00 09/26/16 15:59 09/19/16 17:07 Clonidine HCl (Catapres) 0.1 mg Q4H PRN ORAL SBP>160 09/19/16 17:00 10/19/16 16:59 09/19/16 19:08 Clotrimazole (Lotrimin) 1 applic EVERY 12 HOURS TOPIC 09/20/16 11:00 10/20/16 10:59 09/20/16 10:27 Dextrose (Dextrose 50%) STAT PRN IV Hypoglycemia 09/19/16 21:45 10/19/16 21:44 Donepezil HCl (Aricept) 10 mg DAILY ORAL 09/20/16 09:00 10/20/16 08:59 09/20/16 08:54 Duloxetine HCl (Cymbalta) 120 mg DAILY ORAL 09/20/16 14:00 10/20/16 13:59 09/20/16 13:21 Ferrous Sulfate (Feosol) 325 mg DAILY ORAL 09/20/16 09:00 10/20/16 08:59 09/20/16 08:54 Heparin Sodium/ Dextrose (Heparin) 500 ml @ 24.331 mls/ hr adjust per protocol IV 09/19/16 16:00 10/19/16 15:59 09/20/16 10:29 Morphine Sulfate (Morphine Sulfate) 2 mg EVERY 8 HOURS PRN IVP Moderate Pain (Pain Scale 4-6) 09/19/16 22:00 09/26/16 21:59 09/20/16 10:50 Nitroglycerin (Ntg) 0.4 mg Q5M X 3 DOSES PRN SL Prn Chest Pain 09/19/16 15:00 10/19/16 14:59 Ondansetron HCl (Zofran) 4 mg Q6H PRN IVP Nausea & Vomiting 09/19/16 15:45 10/19/16 15:44 Polyethylene Glycol (Miralax) 17 gm HSPRN PRN ORAL Constipation 09/19/16 21:45 10/19/16 21:44 09/20/16 10:50 Temazepam (Restoril) 15 mg HSPRN PRN ORAL Insomnia 09/19/16 21:45 09/26/16 21:44 Trazodone HCl (Desyrel) 150 mg BEDTIME ORAL 09/19/16 21:00 10/19/16 20:59 09/19/16 21:49 MARA HASSAN Sep 20, 2016 15:38
[2016-09-20 16:15] VITALS: BP 143/58
--- NOTE | 2016-09-20 16:18 | Pulmonology Progress Note ---
Assessment/Plan Problems: (1) Sepsis (2) UTI (urinary tract infection) (3) DVT (deep venous thrombosis) (4) Hemiplegia (5) Depression (6) History of CVA (cerebrovascular accident) Assessment/Plan start coumadin pt apparently doens't need any surgery will dc with oral antibiotics when urine cultures are available f/u wbc Subjective ROS Limited/Unobtainable: No Constitutional: Reports: no symptoms HEENT: Repors: no symptoms Respiratory: Reports: no symptoms Allergies: Coded Allergies: No Known Allergies (Unverified , 09/18/16) Objective Last 24 Hour Vital Signs Date Time Temp Pulse Resp B/P Pulse Ox O2 Delivery O2 Flow Rate FiO2 09/20/16 15:35 97.7 09/20/16 12:00 97.7 84 20 136/72 95 Room Air 09/20/16 11:20 98.4 09/20/16 08:54 92 133/70 09/20/16 08:00 98.4 92 20 133/70 96 Room Air 09/20/16 07:50 92 18 Room Air 21 09/20/16 04:00 98.1 85 20 138/73 95 Room Air 09/20/16 00:00 98.1 84 19 130/72 98 Room Air 09/19/16 21:38 82 166/79 09/19/16 21:10 82 18 Room Air 21 09/19/16 20:45 152/81 09/19/16 20:39 98.1 73 19 166/79 96 Room Air 09/19/16 19:08 178/92 09/19/16 18:00 150/98 09/19/16 16:34 97.0 85 19 178/92 98 Room Air Intake and Output 09/19/16 09/20/16 19:00 07:00 Intake Total 375.9 ml 326.4 ml Output Total 300 ml 500 ml Balance 75.9 ml -173.6 ml Intake Oral 230 ml 240 ml IV Total 145.9 ml 86.4 ml Output Urine Total 300 ml 500 ml General Appearance: WD/WN HEENT: normocephalic, atraumatic Respiratory/Chest: chest wall non-tender, lungs clear Cardiovascular: normal peripheral pulses, normal rate Abdomen: normal bowel sounds, soft, non tender Genitourinary: normal external genitalia Extremities: no cyanosis Neurologic/Psychiatric: felt pad cutter II-XII grossly normal Microbiology Date/Time Source Procedure Growth Status 09/18/16 22:15 Urine,Clean Catch Urine Culture - Preliminary Gram Negative Bacillus 1 Resulted Laboratory Tests 09/19/16 23:00: Activated Partial Thromboplast Time 87H 09/20/16 05:50: Activated Partial Thromboplast Time 61H, White Blood Count 13.2H, Red Blood Count 3.97L, Hemoglobin 9.0L, Hematocrit 29.2L, Mean Corpuscular Volume 74L, Mean Corpuscular Hemoglobin 22.6L, Mean Corpuscular Hemoglobin Concent 30.7L, Red Cell Distribution Width 13.1, Platelet Count 306, Mean Platelet Volume 6.6, Neutrophils (%) (Auto) 60.2, Lymphocytes (%) (Auto) 28.4, Monocytes (%) (Auto) 7.0, Eosinophils (%) (Auto) 3.9H, Basophils (%) (Auto) 0.5, Prothrombin Time 11.4, Prothromb Time International Ratio 1.1, Sodium Level 139, Potassium Level 4.1, Chloride Level 101, Carbon Dioxide Level 22, Anion Gap 16H, Blood Urea Nitrogen 12, Creatinine 0.7, Estimat Glomerular Filtration Rate , Glucose Level 88, Calcium Level 8.7, Phosphorus Level 3.3, Magnesium Level 2.0, Total Bilirubin 0.2, Aspartate Amino Transf (AST/SGOT) 15, Alanine Aminotransferase ( ALT/SGPT) 8, Alkaline Phosphatase 46, Total Protein 7.3, Albumin 2.9L, Globulin 4.4, Albumin/Globulin Ratio 0.6L 09/20/16 15:25: Activated Partial Thromboplast Time [Pending] Current Medications Medications (Trade) Dose Ordered Sig/Claudia Route PRN Reason Start Time Stop Time Status Last Admin Dose Admin Acetaminophen (Tylenol) 650 mg Q4H PRN ORAL fever 09/19/16 17:45 10/19/16 17:44 09/20/16 14:36 Al Hydroxide/Mg Hydroxide (Mylanta II) 30 ml Q6H PRN ORAL dyspepsia 09/19/16 15:45 10/19/16 15:44 Albuterol/ Ipratropium (DuoNeb 0.5-3(2.5)mg/3ml) 3 ml EVERY 8 HOURS PRN HHN Shortness of Breath 09/19/16 22:00 1/22/17 21:59 Atorvastatin Calcium (Lipitor) 20 mg BEDTIME ORAL 09/19/16 21:00 10/19/16 20:59 09/19/16 21:39 Bisacodyl (Dulcolax) 10 mg DAILYPRN PRN RECTAL constipation 09/20/16 11:45 10/20/16 11:44 Carvedilol (Coreg) 12.5 mg EVERY 12 HOURS ORAL 09/19/16 21:00 10/19/16 20:59 09/20/16 08:54 Cefepime HCl 1 gm/ Dextrose 55 ml @ 110 mls/hr Q24H IVPB 09/19/16 16:00 09/26/16 15:59 09/19/16 17:07 Clonidine HCl (Catapres) 0.1 mg Q4H PRN ORAL SBP>160 09/19/16 17:00 10/19/16 16:59 09/19/16 19:08 Clotrimazole (Lotrimin) 1 applic EVERY 12 HOURS TOPIC 09/20/16 11:00 10/20/16 10:59 09/20/16 10:27 Dextrose (Dextrose 50%) STAT PRN IV Hypoglycemia 09/19/16 21:45 10/19/16 21:44 Donepezil HCl (Aricept) 10 mg DAILY ORAL 09/20/16 09:00 10/20/16 08:59 09/20/16 08:54 Duloxetine HCl (Cymbalta) 120 mg DAILY ORAL 09/20/16 14:00 10/20/16 13:59 09/20/16 13:21 Ferrous Sulfate (Feosol) 325 mg DAILY ORAL 09/20/16 09:00 10/20/16 08:59 09/20/16 08:54 Heparin Sodium/ Dextrose (Heparin) 500 ml @ 24.331 mls/ hr adjust per protocol IV 09/19/16 16:00 10/19/16 15:59 09/20/16 10:29 Morphine Sulfate (Morphine Sulfate) 2 mg EVERY 8 HOURS PRN IVP Moderate Pain (Pain Scale 4-6) 09/19/16 22:00 09/26/16 21:59 09/20/16 10:50 Nitroglycerin (Ntg) 0.4 mg Q5M X 3 DOSES PRN SL Prn Chest Pain 09/19/16 15:00 10/19/16 14:59 Ondansetron HCl (Zofran) 4 mg Q6H PRN IVP Nausea & Vomiting 09/19/16 15:45 10/19/16 15:44 Polyethylene Glycol (Miralax) 17 gm HSPRN PRN ORAL Constipation 09/19/16 21:45 10/19/16 21:44 09/20/16 10:50 Temazepam (Restoril) 15 mg HSPRN PRN ORAL Insomnia 09/19/16 21:45 09/26/16 21:44 Trazodone HCl (Desyrel) 150 mg BEDTIME ORAL 09/19/16 21:00 10/19/16 20:59 09/19/16 21:49 MARYAM BATES Sep 20, 2016 16:18
[2016-09-20] MEDS: Cefepime HCl 1 GM in D5W 55 ML IVPB SCH (16:34)
[2016-09-20] MEDS ORDERED: Warfarin Sodium 5mg ORAL SCH (17:00)
--- NOTE | 2016-09-20 19:38 | Consultation ---
DATE OF CONSULTATION: 09/20/2016 ORTHOPEDIC CONSULTATION CONSULTING PHYSICIAN: Aden Coronado M.D. REFERRING PHYSICIAN: Otoniel Nicole M.D. DIAGNOSIS: Right distal femur fracture. HISTORY OF PRESENT ILLNESS: The patient is a 71-year-old woman with a history of a stroke, hemiplegia, depression, and is a permanent [facility] resident with full-time assistance. She had complaints of right lower extremity pain and swelling and was evaluated by venous Doppler showing DVT. She was found to have a left shift as well as urinary tract infection. PAST MEDICAL HISTORY: Significant for cerebrovascular accident, hemiplegia, depression, and hypertension. MEDICATIONS: She takes atorvastatin, Coreg, Aricept, Cymbalta, Pepcid, and trazodone as needed. ALLERGIES: She has no known drug allergies. REVIEW OF SYSTEMS: A 14-point review of systems is negative. PHYSICAL EXAMINATION: GENERAL: On exam, she is resting comfortably in bed. EXTREMITIES: She has minimal tenderness about the lateral aspect of the right distal femur. There is no significant knee pain or swelling. Hip range of motion is not painful. Distal neurovascular examination of the right lower extremity to light touch is intact. IMAGING: Radiographs and CT scans show a very small cortical irregularity with a small buckling approximately 1 decimeter proximal from the knee. There is no significant displacement. ASSESSMENT AND PLAN: The patient sustained a distal femur fracture with no displacement. It is a chip fracture of the cortex. No surgical intervention is warranted or recommended. Close treatment is recommended. She is to remain nonweightbearing with no restrictions on hip or knee range of motion. Repeat radiographs should be obtained to make sure there is no fracture or migration and to start weightbearing within four to six weeks time. Thank for the opportunity to consult. Aden Coronado M.D. ([facility]) DR: STEVEN JOB#: [id number] CC:
[2016-09-20 20:00] VITALS: BP 152/97
[2016-09-20] MEDS: TraZODone 100mg tab ORAL SCH (21:06)
[2016-09-20] MEDS: Atorvastatin 20mg tab ORAL SCH (21:08)
[2016-09-21] VITALS (9 sets, daily range): BP systolic 130–178; BP diastolic 57–84
[2016-09-21] MEDS: Morphine Sulfate 2mg/ml Inj IVP PRN (02:43)
[2016-09-21 04:23] LABS: BASOPHILS % (AUTO) 0.6 % (0.0-2.0); EOSINOPHILS % (AUTO) 3.8 % (0.0-3.0); LYMPHOCYTES % (AUTO) 22.8 % (20.0-45.0); MEAN CORPUSCULAR HEMOGLOBIN 22.9 PG (27.0-31.0); MEAN CORPUSCULAR VOLUME 77 FL (80-99); MEAN PLATELET VOLUME 5.9 FL (6.5-10.1); MONOCYTES % (AUTO) 7.1 % (1.0-10.0); NEUTROPHILS % (AUTO) 65.7 % (45.0-75.0); PLATELET COUNT 305 K/UL (150-450); RED BLOOD COUNT 3.54 M/UL (4.20-5.40); RED CELL DISTRIBUTION WIDTH 13.4 % (11.6-14.8); WHITE BLOOD COUNT 12.7 K/UL (4.8-10.8)
[2016-09-21 04:43] LABS: ALANINE AMINOTRANSFERASE 9 U/L (3-33); ALBUMIN/GLOBULIN RATIO 0.5 (1.0-2.7); ANION GAP 13 (5-15); ASPARTATE AMINO TRANSFERASE 15 U/L (5-40); CALCIUM 8.4 mg/dL (8.6-10.2); CARBON DIOXIDE 21 mEQ/L (20-30); CHLORIDE 102 mEQ/L (98-107); CREATININE 0.7 mg/dL (0.5-0.9); HEMOLYSIS 0; MAGNESIUM 1.9 mg/dL (1.7-2.5); POTASSIUM 3.8 mEQ/L (3.4-4.9); SODIUM 136 mEQ/L (135-145); TOTAL PROTEIN 7.1 g/dL (6.6-8.7)
[2016-09-21 04:50] LABS: INR 1.2 (0.9-1.1)
[2016-09-21] MEDS: DULoxetine 30mg cap ORAL SCH (08:19)
[2016-09-21] MEDS: Carvedilol 12.5mg tab ORAL SCH (08:20)
[2016-09-21] MEDS: Donepezil 10mg tab ORAL SCH (08:20)
[2016-09-21] MEDS: Heparin 25,000u/D5W 500ml 500 ML IV SCH (09:16)
[2016-09-21] MEDS ORDERED: MYLANTA II30 ML ORAL (15:30)
[2016-09-21] MEDS ORDERED: CEFEPIME-D1 GM/50 ML IVPB (15:31)
[2016-09-21] MEDS ORDERED: CLONIDINE0.1 MG GT (15:32)
[2016-09-21] MEDS ORDERED: CLOTRIMAZOLE15 GM TOPIC (15:32)
[2016-09-21] MEDS ORDERED: COUMADIN1 MG ORAL (15:36)
[2016-09-21] MEDS: Cefepime HCl 1 GM in D5W 55 ML IVPB SCH (15:44)
--- NOTE | 2016-09-21 16:06 | Pulmonology Progress Note ---
Assessment/Plan Problems: (1) Sepsis (2) UTI (urinary tract infection) (3) DVT (deep venous thrombosis) (4) Hemiplegia (5) Depression (6) History of CVA (cerebrovascular accident) Assessment/Plan start coumadin pt apparently doens't need any surgery will dc with oral antibiotics when urine cultures are available f/u wbc Subjective Constitutional: Reports: anorexia, fatigue Neurologic: Reports: confusion, weakness Musculoskeletal: Reports: pain, stiffness, swelling Allergies: Coded Allergies: No Known Allergies (Unverified , 09/18/16) Objective Last 24 Hour Vital Signs Date Time Temp Pulse Resp B/P Pulse Ox O2 Delivery O2 Flow Rate FiO2 09/21/16 15:05 98.1 81 22 145/68 98 Room Air 09/21/16 12:30 97.9 81 20 130/57 97 Room Air 09/21/16 12:15 97.5 83 21 130/59 95 Room Air 09/21/16 12:00 98.1 85 20 142/81 97 Room Air 09/21/16 10:10 98.2 09/21/16 08:20 87 150/79 09/21/16 08:00 98.2 87 18 150/79 93 Room Air 09/21/16 06:46 88 20 Room Air 09/21/16 04:00 98.2 81 18 149/75 93 Room Air 09/21/16 00:00 99.5 87 18 157/84 95 Room Air 09/20/16 21:07 84 152/97 09/20/16 20:00 97.5 84 20 152/97 97 Room Air 09/20/16 17:09 97.7 09/20/16 16:15 97.7 82 19 143/58 95 Room Air Intake and Output 09/20/16 09/21/16 19:00 07:00 Intake Total 1052.6 ml 721.5 ml Output Total 325 ml 650 ml Balance 727.6 ml 71.5 ml Intake Oral 760 ml 600 ml IV Total 292.6 ml 121.5 ml Output Urine Total 325 ml 650 ml # Bowel Movements 1 1 General Appearance: no acute distress HEENT: normocephalic, atraumatic, PERRL Respiratory/Chest: chest wall non-tender, decreased breath sounds, accessory muscle use Breasts: no masses Cardiovascular: normal peripheral pulses, normal rate, regular rhythm Abdomen: normal bowel sounds, soft, non tender, no organomegaly, non distended Genitourinary: normal external genitalia Skin: rash, lesions Neurologic/Psychiatric: responsive, abnormal CN, motor weakness, disoriented, aphasia, depressed affect Microbiology Date/Time Source Procedure Growth Status 09/18/16 22:55 Nasal Nares MRSA Culture - Final NO METHICILLIN RESISTANT STAPH AUREUS... Complete 09/18/16 22:15 Urine,Clean Catch Urine Culture - Final Escherichia Coli - Esbl Complete 09/18/16 22:55 Rectum VRE Culture - Final NO VANCOMYCIN RESISTANT ENTEROCOCCUS ... Complete Laboratory Tests 09/21/16 03:55: White Blood Count 12.7H, Red Blood Count 3.54L, Hemoglobin 8.1L, Hematocrit 27.1L, Mean Corpuscular Volume 77L, Mean Corpuscular Hemoglobin 22.9L, Mean Corpuscular Hemoglobin Concent 30.0L, Red Cell Distribution Width 13.4, Platelet Count 305, Mean Platelet Volume 5.9L, Neutrophils (%) (Auto) 65.7, Lymphocytes (%) (Auto) 22.8, Monocytes (%) (Auto) 7.1, Eosinophils (%) (Auto) 3.8H, Basophils (%) (Auto) 0.6, Prothrombin Time 12.0H, Prothromb Time International Ratio 1.2H, Activated Partial Thromboplast Time 72H, Sodium Level 136, Potassium Level 3.8, Chloride Level 102, Carbon Dioxide Level 21, Anion Gap 13, Blood Urea Nitrogen 9, Creatinine 0.7, Estimat Glomerular Filtration Rate , Glucose Level 103, Calcium Level 8.4L, Phosphorus Level 3.0, Magnesium Level 1.9, Total Bilirubin 0.3, Aspartate Amino Transf (AST/SGOT) 15, Alanine Aminotransferase (ALT/SGPT) 9, Alkaline Phosphatase 42, Total Protein 7.1, Albumin 2.6L, Globulin 4.5, Albumin/Globulin Ratio 0.5L Current Medications Medications (Trade) Dose Ordered Sig/Claudia Route PRN Reason Start Time Stop Time Status Last Admin Dose Admin Acetaminophen (Tylenol) 650 mg Q4H PRN ORAL Fever/Headache/Mild Pain 09/21/16 13:45 10/21/16 13:44 Al Hydroxide/Mg Hydroxide (Mylanta II) 30 ml Q6H PRN ORAL dyspepsia 09/19/16 15:45 10/19/16 15:44 Albuterol/ Ipratropium (DuoNeb 0.5-3(2.5)mg/3ml) 3 ml EVERY 8 HOURS PRN HHN Shortness of Breath 09/19/16 22:00 09/24/16 21:59 Atorvastatin Calcium (Lipitor) 20 mg BEDTIME ORAL 09/19/16 21:00 10/19/16 20:59 09/20/16 21:08 Bisacodyl (Dulcolax) 10 mg DAILYPRN PRN RECTAL constipation 09/20/16 11:45 10/20/16 11:44 Carvedilol (Coreg) 12.5 mg EVERY 12 HOURS ORAL 09/19/16 21:00 10/19/16 20:59 09/21/16 08:20 Cefepime HCl 1 gm/ Dextrose 55 ml @ 110 mls/hr Q24H IVPB 09/19/16 16:00 09/26/16 15:59 09/21/16 15:44 Clonidine HCl (Catapres) 0.1 mg Q4H PRN ORAL SBP>160 09/19/16 17:00 10/19/16 16:59 09/19/16 19:08 Clotrimazole (Lotrimin) 1 applic EVERY 12 HOURS TOPIC 09/20/16 11:00 10/20/16 10:59 09/21/16 08:20 Dextrose (Dextrose 50%) STAT PRN IV Hypoglycemia 09/19/16 21:45 10/19/16 21:44 Donepezil HCl (Aricept) 10 mg DAILY ORAL 09/20/16 09:00 10/20/16 08:59 09/21/16 08:20 Duloxetine HCl (Cymbalta) 120 mg DAILY ORAL 09/20/16 14:00 10/20/16 13:59 09/21/16 08:19 Ferrous Sulfate (Feosol) 325 mg DAILY ORAL 09/20/16 09:00 10/20/16 08:59 09/21/16 08:20 Heparin Sodium/ Dextrose (Heparin) 500 ml @ 24.331 mls/ hr adjust per protocol IV 09/19/16 16:00 10/19/16 15:59 09/21/16 09:16 Morphine Sulfate (Morphine Sulfate) 2 mg EVERY 8 HOURS PRN IVP Moderate Pain (Pain Scale 4-6) 09/19/16 22:00 09/26/16 21:59 09/20/16 16:39 Nitroglycerin (Ntg) 0.4 mg Q5M X 3 DOSES PRN SL Prn Chest Pain 09/19/16 15:00 10/19/16 14:59 Ondansetron HCl (Zofran) 4 mg Q6H PRN IVP Nausea & Vomiting 09/19/16 15:45 10/19/16 15:44 Polyethylene Glycol (Miralax) 17 gm HSPRN PRN ORAL Constipation 09/19/16 21:45 10/19/16 21:44 09/20/16 10:50 Temazepam (Restoril) 15 mg HSPRN PRN ORAL Insomnia 09/19/16 21:45 09/26/16 21:44 Trazodone HCl (Desyrel) 150 mg BEDTIME ORAL 09/19/16 21:00 10/19/16 20:59 09/20/16 21:06 Warfarin Sodium (Coumadin per pharmacy) 1 ea DAILY PRN MISC Per rx protocol 09/20/16 16:15 10/20/16 16:14 Warfarin Sodium (Coumadin) 5 mg COUMADIN ONCE ORAL 09/21/16 17:00 09/21/16 17:01 MARYAM BATES Sep 21, 2016 16:06
--- NOTE | 2016-09-21 16:27 | Infectious Diseases Prog Note ---
Assessment/Plan Assessment/Plan ASSESSMENT: 71 y/o female with: // ESBL(+) E.coli UTI // Leukocytosis - improved, afebrile ( DVT, fx contributing ) // Acute nondisplaced fracture of the right distal femur - does not rq surgery per ortho // Acute RLE DVT - doppler: acute thrombus superficial femoral to popliteal veins // h/o CVA, hemiplegia // [facility] resident // NKDA // Full Code PLAN: - change cefepime d# 3 to invanz d# 1 / 5 based on cultures. Ok to complete course with PO macrobid at discharge ( 09/18 SP rocephin x1 ) - f/u final cultures - monitor CBC, temperatures - monitor BMP - monitor CXR - anticoagulation per primary Subjective Allergies: Coded Allergies: No Known Allergies (Unverified , 09/18/16) Subjective remains afebrile. appears comfortable Objective Vital Signs Last 24 Hour Vital Signs Date Time Temp Pulse Resp B/P Pulse Ox O2 Delivery O2 Flow Rate FiO2 09/21/16 16:11 97.9 78 19 178/83 96 Room Air 09/21/16 15:05 98.1 81 22 145/68 98 Room Air 09/21/16 12:30 97.9 81 20 130/57 97 Room Air 09/21/16 12:15 97.5 83 21 130/59 95 Room Air 09/21/16 12:00 98.1 85 20 142/81 97 Room Air 09/21/16 10:10 98.2 09/21/16 08:20 87 150/79 09/21/16 08:00 98.2 87 18 150/79 93 Room Air 09/21/16 06:46 88 20 Room Air 09/21/16 04:00 98.2 81 18 149/75 93 Room Air 09/21/16 00:00 99.5 87 18 157/84 95 Room Air 09/20/16 21:07 84 152/97 09/20/16 20:00 97.5 84 20 152/97 97 Room Air 09/20/16 17:09 97.7 Height (Feet): 5 Height (Inches): 6.00 Weight (Pounds): 149 General Appearance: no acute distress Respiratory/Chest: no respiratory distress Cardiovascular: normal rate, regular rhythm Abdomen: normal bowel sounds, soft, non tender, non distended Microbiology Date/Time Source Procedure Growth Status 09/18/16 22:55 Nasal Nares MRSA Culture - Final NO METHICILLIN RESISTANT STAPH AUREUS... Complete 09/18/16 22:15 Urine,Clean Catch Urine Culture - Final Escherichia Coli - Esbl Complete 09/18/16 22:55 Rectum VRE Culture - Final NO VANCOMYCIN RESISTANT ENTEROCOCCUS ... Complete Laboratory Tests Test 09/21/16 03:55 White Blood Count 12.7 K/UL (4.8-10.8) H Red Blood Count 3.54 M/UL (4.20-5.40) L Hemoglobin 8.1 G/DL (12.0-16.0) L Hematocrit 27.1 % (37.0-47.0) L Mean Corpuscular Volume 77 FL (80-99) L Mean Corpuscular Hemoglobin 22.9 PG (27.0-31.0) L Mean Corpuscular Hemoglobin Concent 30.0 G/DL (32.0-36.0) L Red Cell Distribution Width 13.4 % (11.6-14.8) Platelet Count 305 K/UL (150-450) Mean Platelet Volume 5.9 FL (6.5-10.1) L Neutrophils (%) (Auto) 65.7 % (45.0-75.0) Lymphocytes (%) (Auto) 22.8 % (20.0-45.0) Monocytes (%) (Auto) 7.1 % (1.0-10.0) Eosinophils (%) (Auto) 3.8 % (0.0-3.0) H Basophils (%) (Auto) 0.6 % (0.0-2.0) Prothrombin Time 12.0 SEC (9.30-11.50) H Prothromb Time International Ratio 1.2 (0.9-1.1) H Activated Partial Thromboplast Time 72 SEC (23-33) H Sodium Level 136 mEQ/L (135-145) Potassium Level 3.8 mEQ/L (3.4-4.9) Chloride Level 102 mEQ/L (98-107) Carbon Dioxide Level 21 mEQ/L (20-30) Anion Gap 13 (5-15) Blood Urea Nitrogen 9 mg/dL (7-23) Creatinine 0.7 mg/dL (0.5-0.9) Estimat Glomerular Filtration Rate mL/min (>60) Glucose Level 103 mg/dL (74-106) Calcium Level 8.4 mg/dL (8.6-10.2) L Phosphorus Level 3.0 mg/dL (2.5-4.8) Magnesium Level 1.9 mg/dL (1.7-2.5) Total Bilirubin 0.3 mg/dL (0.0-1.2) Aspartate Amino Transf (AST/SGOT) 15 U/L (5-40) Alanine Aminotransferase (ALT/SGPT) 9 U/L (3-33) Alkaline Phosphatase 42 U/L (35-104) Total Protein 7.1 g/dL (6.6-8.7) Albumin 2.6 g/dL (3.5-5.2) L Globulin 4.5 g/dL Albumin/Globulin Ratio 0.5 (1.0-2.7) L Current Medications Medications (Trade) Dose Ordered Sig/Claudia Route PRN Reason Start Time Stop Time Status Last Admin Dose Admin Acetaminophen (Tylenol) 650 mg Q4H PRN ORAL Fever/Headache/Mild Pain 09/21/16 13:45 10/21/16 13:44 Al Hydroxide/Mg Hydroxide (Mylanta II) 30 ml Q6H PRN ORAL dyspepsia 09/19/16 15:45 10/19/16 15:44 Albuterol/ Ipratropium (DuoNeb 0.5-3(2.5)mg/3ml) 3 ml EVERY 8 HOURS PRN HHN Shortness of Breath 09/19/16 22:00 09/24/16 21:59 Atorvastatin Calcium (Lipitor) 20 mg BEDTIME ORAL 09/19/16 21:00 10/19/16 20:59 09/20/16 21:08 Bisacodyl (Dulcolax) 10 mg DAILYPRN PRN RECTAL constipation 09/20/16 11:45 10/20/16 11:44 Carvedilol (Coreg) 12.5 mg EVERY 12 HOURS ORAL 09/19/16 21:00 10/19/16 20:59 09/21/16 08:20 Cefepime HCl 1 gm/ Dextrose 55 ml @ 110 mls/hr Q24H IVPB 09/19/16 16:00 09/26/16 15:59 09/21/16 15:44 Clonidine HCl (Catapres) 0.1 mg Q4H PRN ORAL SBP>160 09/19/16 17:00 10/19/16 16:59 09/19/16 19:08 Clotrimazole (Lotrimin) 1 applic EVERY 12 HOURS TOPIC 09/20/16 11:00 10/20/16 10:59 09/21/16 08:20 Dextrose (Dextrose 50%) STAT PRN IV Hypoglycemia 09/19/16 21:45 10/19/16 21:44 Donepezil HCl (Aricept) 10 mg DAILY ORAL 09/20/16 09:00 10/20/16 08:59 09/21/16 08:20 Duloxetine HCl (Cymbalta) 120 mg DAILY ORAL 09/20/16 14:00 10/20/16 13:59 09/21/16 08:19 Ferrous Sulfate (Feosol) 325 mg DAILY ORAL 09/20/16 09:00 10/20/16 08:59 09/21/16 08:20 Heparin Sodium/ Dextrose (Heparin) 500 ml @ 24.331 mls/ hr adjust per protocol IV 09/19/16 16:00 10/19/16 15:59 09/21/16 09:16 Morphine Sulfate (Morphine Sulfate) 2 mg EVERY 8 HOURS PRN IVP Moderate Pain (Pain Scale 4-6) 09/19/16 22:00 09/26/16 21:59 09/20/16 16:39 Nitroglycerin (Ntg) 0.4 mg Q5M X 3 DOSES PRN SL Prn Chest Pain 09/19/16 15:00 10/19/16 14:59 Ondansetron HCl (Zofran) 4 mg Q6H PRN IVP Nausea & Vomiting 09/19/16 15:45 10/19/16 15:44 Polyethylene Glycol (Miralax) 17 gm HSPRN PRN ORAL Constipation 09/19/16 21:45 10/19/16 21:44 09/20/16 10:50 Temazepam (Restoril) 15 mg HSPRN PRN ORAL Insomnia 09/19/16 21:45 09/26/16 21:44 Trazodone HCl (Desyrel) 150 mg BEDTIME ORAL 09/19/16 21:00 10/19/16 20:59 09/20/16 21:06 Warfarin Sodium (Coumadin per pharmacy) 1 ea DAILY PRN MISC Per rx protocol 09/20/16 16:15 10/20/16 16:14 Warfarin Sodium (Coumadin) 5 mg COUMADIN ONCE ORAL 09/21/16 17:00 09/21/16 17:01 MARA HASSAN Sep 21, 2016 16:27
[2016-09-21] MEDS ORDERED: Ertapenem 1 GM in NS 55 ML IVPB SCH (16:30)
[2016-09-21] MEDS ORDERED: Warfarin Sodium 5mg ORAL ONE (17:00)
[2016-09-21] MEDS ORDERED: Ertapenem 1 GM in NS 110 ML IVPB SCH (18:00)
--- NOTE | 2016-09-22 16:50 | Discharge Summary ---
Discharge Summary Hospital Course Date of Admission Sep 18, 2016 at 21:36 Date of Discharge Sep 21, 2016 at 19:30 Admitting Diagnosis Acute DVT right LE HPI Alejandra Roque is a 71 year old female who was admitted on Sep 18, 2016 at 21: 36 for Acute Diverticulitis Right Lower Extremity Hospital Course [id number] Discharge Discharge Disposition Patient was discharged to [facility] Discharge Diagnoses: Caro Cuba NP Sep 22, 2016 16:50
--- NOTE | 2016-09-23 03:28 | Discharge Summary 2 SIG ---
DATE OF ADMISSION: 09/18/2016 DATE OF DISCHARGE: 09/21/2016 CONSULTANTS: 1. Davin Rg M.D. 2. Aden Coronado M.D. 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 She had a D-dimer obtained as an outpatient, which was elevated. She was sent in for further evaluation. She had a venous duplex done in ER that showed acute DVT in the right superficial femoral to popliteal vein. She was started on heparin drip for the DVT a bridge with Coumadin. Further workup also revealed leukocytosis. WBC is 19 with urine WBC too many to count, urine RBC 0 to 2, and urine leukocytes 3+. The hip and femur x-ray showed no acute fractures with moderate to severe osteopenia. Right femoral x-ray showed a questionable distal fracture. CT showed acute nondisplaced fracture of the right distal femur in the area metadiaphysis. Dr. Rg was consulted. She was started empirically on Rocephin at ED. Urine culture showed growth of ESBL E. coli. Antibiotic was then changed to Invanz. Dr. Coronado was consulted for right distal femoral fracture. There was with no displacement. No surgical intervention was warranted or recommended. Close treatment was recommended. Advised to remain nonweightbearing with no restrictions on hip or knee range of motion. Advised to have repeat radiographs to make sure there is no fracture or migration and to start weightbearing within 4 to 6 weeks. The patient was discharged to [facility]. FINAL DIAGNOSES: 1. Sepsis. 2. Urinary tract infection with Extended spectrum beta-Lactamases. 3. Acute deep vein thrombosis on the right leg. 4. Hemiplegia. 5. Depression. 6. Old cerebrovascular accident. 7. Acute distal femur fracture with no displacement. Otoniel Nicole M.D. I have been assigned to dictate discharge summary on this account and I was not involved in the patient's management. Caro Cuba N.P. DR: JUAN JOB#: [id number] CC: MAURA
--- NOTE | 2016-09-23 17:10 | Diagnostic Imaging Report ---
APPROVED REPORT CPT Code: 61525 Present Symptoms Lower Extremity Pain: Right RIGHT LEG: Venous imaging reveals acute thrombus in the superficial femoral to popliteal veins. Imaging also reveals patency of the common femoral and calf veins. Dr. Wilson was notified of the abnormal results at 20:30 hours.
--- NOTE | 2016-10-13 13:56 | Cardiology Report ---
APPROVED REPORT EXAM: Two-dimensional and M-mode echocardiogram with Doppler and color Doppler. INDICATION Left Ventricular Function M-Mode DIMENSIONS IVSd1.9 (0.7-1.1cm)Left Atrium (MM)5.2 (1.6-4.0cm) LVDd4.0 (3.5-5.6cm)Aortic Root3.3 (2.0-3.7cm) PWd1.2 (0.7-1.1cm)Aortic Cusp Exc.1.9 (1.5-2.0cm) IVSs2.1 cm LVDs3.5 (2.5-4.0cm) PWs1.5 cm Technically difficult study due to poor acoustical windows. Normal left ventricular chamber size. Mild basal septal hypokinesis, otherwise normal wall motion in remaining segments.. Left ventricular ejection fraction estimated to be 55 %. Moderate left ventricular hypertrophy. Mild left atrial enlargement. Right cardiac chamber sizes are within normal limits. Mild focal aortic valve sclerosis with adequate cusp excursion. Mildly thickened mitral valve leaflets with normal excursion. Mild mitral annulus and aortic root calcification. Pulmonic valve not well visualized. Normal tricuspid valve structure. IVC not obtainable. A color flow and spectral Doppler study was performed and revealed: Trace aortic regurgitation. Mild mitral regurgitation. Mitral diastolic velocities suggest reduced left ventricular relaxation (Grade I). Trace tricuspid regurgitation. Tricuspid systolic velocities suggests peak right ventricular systolic pressure of 9 mmHg. Mild pulmonic regurgitation present.
--- NOTE | 2016-10-17 15:29 | Cardiology Report ---
APPROVED REPORT EKG Measurement Heart [id number] Sinus tachycardia Possible Left atrial enlargement Left ventricular hypertrophy with repolarization abnormality Abnormal ECG
== END 2016-09-21 19:30 | disposition short-term general hospital (02) | DRG 197 ==
LOC: EDBD 19:21 → EDBEDREQTM 20:59 → EDBEDREQSVC 20:59 → EMR 21:26 → 2E 21:36 → EDBEDREQ 21:43 → 3E 09-19 14:44
PROC: 30233N1 Transfusion of Nonautologous Red Blood Cells into Peripheral Vein, Percutaneous Approach (ICD-10-PCS; principal; 2016-09-21)
DX: I82.411 Acute embolism and thrombosis of right femoral vein (principal); A41.9 Sepsis, unspecified organism; S72.491A Other fracture of lower end of right femur, initial encounter for closed fracture; I82.431 Acute embolism and thrombosis of right popliteal vein; I69.959 Hemiplegia and hemiparesis following unspecified cerebrovascular disease affecting unspecified side; N39.0 Urinary tract infection, site not specified; D72.829 Elevated white blood cell count, unspecified; M85.861 Other specified disorders of bone density and structure, right lower leg; B96.20 Unspecified Escherichia coli [E. coli] as the cause of diseases classified elsewhere; Z16.12 Extended spectrum beta lactamase (ESBL) resistance; F32.89 Other specified depressive episodes; X58.XXXA Exposure to other specified factors, initial encounter; Y93.9 Activity, unspecified; Y92.9 Unspecified place or not applicable; Y99.9 Unspecified external cause status
CPT/HCPCS: 36415; 71010; 80053; 81003; 82550; 82553; 83735; 84100; 84484; 85007; 85025; 85610; 85730; 86850; 86900; 86901; 86920; 87081; 87086; 87181; 93005; 93306; 93971; 94664

== ENCOUNTER 2017-03-05 00:25 | Inpatient (IN) | payer MEDICARE, OTHER ==
[~2017-03-05] VITALS: Ht 167.6 cm; Wt 71.2 kg
[2017-03-05] VITALS (7 sets, daily range): BP systolic 141–158; BP diastolic 58–79
[~2017-03-05 00:25] MED LIST: ACETAMINOPHEN120 MG RECTAL; ARICEPT10 MG ORAL; CEFEPIME-D1 GM/50 ML IVPB; CLONIDINE0.1 MG GT; CLOTRIMAZOLE15 GM TOPIC; COREG12.5 MG ORAL; COUMADIN1 MG ORAL; CYMBALTA20 MG ORAL; DOCUSATE SODIU100 M2 ORAL; DULCOLAX10 MG RC; FERROUS SULFAT325 MG ORAL; FLEET ENEMA133 M1 RC; LIPITOR20 MG ORAL; MOM30 ML ORAL; MULTI VITAMIN1 EACH ORAL; MYLANTA II30 ML ORAL; PEPCID20 MG ORAL; QUINAPRIL HCL40 MG PO; TRAZODONE HCL150 MG ORAL; TYLENOL650 MG/20. ORAL; VICODIN 5-3001 EACH ORAL; VIT C; VIT D
[2017-03-05] MEDS ORDERED: Pantoprazole Inj IV ONE (00:45)
--- NOTE | 2017-03-05 00:45 | Emergency Room Report ---
History of Present Illness General Chief Complaint: Gastrointestinal Bleed Source: Patient, EMS Present Illness HPI The patient presents with the complaint of GI bleeding vs vaginal bleeding. It' s uncertain whether this is vaginal or the rectum. She's been passing some dark blood. She denies any complaints at this time including pain fever nausea vomiting diarrhea. In the past patient's been on Coumadin for DVT. She denies extremity pain or swelling. These are the d/c diagnoses 09/21: FINAL DIAGNOSES: 1. Sepsis. 2. Urinary tract infection with Extended spectrum beta-Lactamases. 3. Acute deep vein thrombosis on the right leg. 4. Hemiplegia. 5. Depression. 6. Old cerebrovascular accident. 7. Acute distal femur fracture with no displacement. Allergies: Coded Allergies: No Known Allergies (Unverified , 09/18/16) Patient History Past Medical History: see triage record Social History [facility]ative jail - born [place] Reviewed Nursing Documentation: PMH: Agreed, PSxH: Agreed Nursing Documentation-PMH Past Medical History: No History, Except For Hx Hypertension: Yes - osteporosis Hx Gastrointestinal Problems: Yes - GERD Hx Neurological Problems: Yes - dementia Hx Cerebrovascular Accident: Yes Hx Dementia: Yes Review of Systems All Other Systems: negative except mentioned in HPI Physical Exam Vital Signs Date Time Temp Pulse Resp B/P Pulse Ox O2 Delivery O2 Flow Rate FiO2 03/05/17 00:21 97.3 86 18 130/76 94 Room Air Sp02 EP Interpretation: reviewed, normal General Appearance: no apparent distress, GCS 15, Chronically Ill Head: normocephalic Eyes: bilateral eye PERRL, bilateral eye conjunctivae pale ENT: moist mucus membranes Neck: supple Respiratory: lungs clear, normal breath sounds Cardiovascular #1: regular rate, rhythm Cardiovascular #2: 2+ radial (R) Gastrointestinal: normal inspection, normal bowel sounds, non tender, no mass, non-distended Rectal: heme positive stool - burgandy and dark Genitourinary: other - no vaginal bleeding (owens in place) Musculoskeletal: back normal, no calf tenderness Neurologic: alert, motor weakness - extremities, other - I cannot determine localizing weakness, oriented - X2 Psychiatric: mood/affect normal Skin: pallor Medical Decision Making Diagnostic Impression: Primary Impression: Gastrointestinal hemorrhage Qualified Codes: K92.2 - Gastrointestinal hemorrhage, unspecified Additional Impressions: Prolonged INR Anemia Qualified Codes: D50.8 - Other iron deficiency anemias ER Course The patient presents with rectal blood and pallor. There is a history of prior use of Coumadin. Differential includes ulcer, gastritis, diverticulosis amongst others. Her stool is dark suggesting possibly upper source and pantoprazole is ordered. The patient was evaluated with labs including INR and have a type and Rh. Her vital signs are stable but she is quite pale. If the H &H is critical she will receive for emergency transfusion in the emergency department. H/H low. VS stable. Will hold off on transfusion in ED. Most likely, she will need blood. In addition, further studies will be needed to determine the source of bleeding. INR is slightly prolonged. FFP not ordered. Pyuria suggests UTI and antibiotics started. Patient admitted telemetry Dr. Nicole. Laboratory Tests Test 03/05/17 00:32 03/05/17 01:35 White Blood Count 12.9 K/UL (4.8-10.8) H Red Blood Count 3.88 M/UL (4.20-5.40) L Hemoglobin 9.3 G/DL (12.0-16.0) L Hematocrit 29.8 % (37.0-47.0) L Mean Corpuscular Volume 77 FL (80-99) L Mean Corpuscular Hemoglobin 23.8 PG (27.0-31.0) L Mean Corpuscular Hemoglobin Concent 31.1 G/DL (32.0-36.0) L Red Cell Distribution Width 13.3 % (11.6-14.8) Platelet Count 297 K/UL (150-450) Mean Platelet Volume 6.7 FL (6.5-10.1) Neutrophils (%) (Auto) 55.2 % (45.0-75.0) Lymphocytes (%) (Auto) 29.9 % (20.0-45.0) Monocytes (%) (Auto) 7.7 % (1.0-10.0) Eosinophils (%) (Auto) 6.6 % (0.0-3.0) H Basophils (%) (Auto) 0.6 % (0.0-2.0) Prothrombin Time 13.7 SEC (9.30-11.50) H Prothrombin Time INR 1.3 (0.9-1.1) H PTT 27 SEC (23-33) Sodium Level 141 mEQ/L (135-145) Potassium Level 3.9 mEQ/L (3.4-4.9) Chloride Level 104 mEQ/L (98-107) Carbon Dioxide Level 25 mEQ/L (20-30) Anion Gap 12 (5-15) Blood Urea Nitrogen 18 mg/dL (7-23) Creatinine 0.8 mg/dL (0.5-0.9) Estimate Glomerular Filtration Rate mL/min (>60) Glucose Level 108 mg/dL (74-106) H Calcium Level 9.3 mg/dL (8.6-10.2) Total Bilirubin < 0.2 mg/dL (0.0-1.2) Aspartate Amino Transferase (AST) 15 U/L (5-40) Alanine Aminotransferase (ALT) 8 U/L (3-33) Alkaline Phosphatase 39 U/L (35-104) Troponin I < 0.30 ng/mL (<=0.30) Total Protein 7.4 g/dL (6.6-8.7) Albumin 3.3 g/dL (3.5-5.2) L Globulin 4.1 g/dL Albumin/Globulin Ratio 0.8 (1.0-2.7) L Lipase 51 U/L (< 60) Urine Color Pale yellow Urine Appearance Cloudy Urine pH 5 (4.5-8.0) Urine Specific [place] 1.020 (1.005-1.035) Urine Protein 2+ (NEGATIVE) H Urine Glucose (UA) Negative (NEGATIVE) Urine Ketones Negative (NEGATIVE) Urine Occult Blood 4+ (NEGATIVE) H Urine Nitrite Positive (NEGATIVE) H Urine Bilirubin Negative (NEGATIVE) Urine Urobilinogen Normal MG/DL (0.0-1.0) Urine Leukocyte Esterase 3+ (NEGATIVE) H Urine RBC 5-10 /HPF (0 - 2) H Urine WBC Tntc /HPF (0 - 2) H Urine Squamous Epithelial Cells Few /LPF (NONE/OCC) Urine Bacteria Many /HPF (NONE) H EKG Diagnostic Results Rate: normal Rhythm: NSR ST Segments: no acute changes Rhythm Strip Diag. Results EP Interpretation: yes Rhythm: NSR, no PVC's, no ectopy Chest X-Ray Diagnostic Results Chest X-Ray Diagnostic Results : Chest X-Ray Ordered: Yes # of Views/Limited/Complete: 1 View EP Interpretation: Yes Interpretation: no consolidation, no effusion, no pneumothorax, no acute cardiopulmonary disease Indication: Other Impression: No acute disease Interpreting ER Provider: Electronically signed by Aden Nayak MD Other X-Ray Diagnostic Results Other X-Ray Diagnostic Results : X-Ray ordered: Abdomen # of Views/Limited Vs Complete: 1 View EP Interpretation: Yes Interpretation: no fractures, no dislocation, no soft tissue swelling, other - Nonspecific bowel gas pattern, calcification uterus, no obstruction, no masses observed. Indication: Other Impression: No acute disease Interpreting ER Provider: Electronically signed by Aden Nayak MD Last Vital Signs Date Time Temp Pulse Resp B/P Pulse Ox O2 Delivery O2 Flow Rate FiO2 03/05/17 08:54 76 157/79 03/05/17 08:08 97.0 18 100 Room Air Status: improved Disposition: ADMITTED INPATIENT Condition: Serious Aden Nayak M.D. Mar 05, 2017 00:45
[2017-03-05 00:52] LABS: BASOPHILS % (AUTO) 0.6 % (0.0-2.0); EOSINOPHILS % (AUTO) 6.6 % (0.0-3.0); LYMPHOCYTES % (AUTO) 29.9 % (20.0-45.0); MEAN CORPUSCULAR HEMOGLOBIN 23.8 PG (27.0-31.0); MEAN CORPUSCULAR HGB CONC 31.1 G/DL (32.0-36.0); MEAN CORPUSCULAR VOLUME 77 FL (80-99); MEAN PLATELET VOLUME 6.7 FL (6.5-10.1); MONOCYTES % (AUTO) 7.7 % (1.0-10.0); NEUTROPHILS % (AUTO) 55.2 % (45.0-75.0); PLATELET COUNT 297 K/UL (150-450); RED BLOOD COUNT 3.88 M/UL (4.20-5.40); RED CELL DISTRIBUTION WIDTH 13.3 % (11.6-14.8); WHITE BLOOD COUNT 12.9 K/UL (4.8-10.8)
[2017-03-05] MEDS ORDERED: CALCIUM CARBON500 M1 PO (00:54)
[2017-03-05] MEDS ORDERED: ARICEPT10 MG ORAL (00:54)
[2017-03-05] MEDS ORDERED: COUMADIN4 MG ORAL (00:58)
[2017-03-05] MEDS ORDERED: COUMADIN5 MG ORAL (00:58)
[2017-03-05 01:09] LABS: INR 1.3 (0.9-1.1); PROTHROMBIN TIME 13.7 SEC (9.30-11.50)
[2017-03-05 01:16] LABS: ALANINE AMINOTRANSFERASE 8 U/L (3-33); ALBUMIN/GLOBULIN RATIO 0.8 (1.0-2.7); ANION GAP 12 (5-15); ASPARTATE AMINO TRANSFERASE 15 U/L (5-40); CALCIUM 9.3 mg/dL (8.6-10.2); CARBON DIOXIDE 25 mEQ/L (20-30); CHLORIDE 104 mEQ/L (98-107); CREATININE 0.8 mg/dL (0.5-0.9); HEMOLYSIS 4; LIPASE 51 U/L (< 60); POTASSIUM 3.9 mEQ/L (3.4-4.9); SODIUM 141 mEQ/L (135-145); TOTAL PROTEIN 7.4 g/dL (6.6-8.7)
[2017-03-05 01:18] LABS: TROPONIN I < 0.30 ng/mL (<=0.30)
[2017-03-05 01:49] LABS: APPEARANCE,URINE CLOUDY; KETONES,URINE NEGATIVE (NEGATIVE); LEUKOCYTE ESTERASE ,URINE 3+ (NEGATIVE); NITRITE,URINE POSITIVE (NEGATIVE); PH,URINE 5 (4.5-8.0); PROTEIN,URINE 2+ (NEGATIVE); UROBILINOGEN,URINE NORMAL MG/DL (0.0-1.0)
[2017-03-05 02:06] LABS: BACTERIA,URINE MANY /HPF; SQUAMOUS EPITHELIAL CELL,UR FEW /LPF (NONE/OCC); WBC,URINE TNTC /HPF (0 - 2)
[2017-03-05] MEDS ORDERED: Piperacillin/Tazobactam 3.375 GM in D5W 110 ML IVPB STA (02:43)
[2017-03-05] MEDS ORDERED: Zosyn 3.375gm inj ONE (02:47)
[2017-03-05] MEDS ORDERED: Morphine Sulfate 2mg/ml Inj IVP PRN (06:45)
[2017-03-05] MEDS ORDERED: Nitroglycerin Subl 0.4mg tab (Bottle Of 25) SL PRN (06:45)
[2017-03-05] MEDS ORDERED: Miralax 17gm pkt ORAL PRN (06:45)
[2017-03-05] MEDS ORDERED: Mylanta II UD 30ml ORAL PRN (06:45)
[2017-03-05] MEDS: D5NS 1,000 ML IV SCH ×2 (07:58→18:00)
[2017-03-05] MEDS ORDERED: Phytonadione 10 MG in D5W 55 ML IVPB ONE (08:00)
[2017-03-05] MEDS: DULoxetine 30mg cap ORAL SCH (08:54)
[2017-03-05] MEDS: Carvedilol 12.5mg tab ORAL SCH ×2 (08:54→20:40)
--- NOTE | 2017-03-05 09:37 | Diagnostic Imaging Report ---
Indications: Chest pain Technique: Portable AP chest Findings: Comparison: 09/19/16 Again, suboptimal inspiration limits evaluation. Cardiac silhouette remains enlarged. Pulmonary vasculature remains within normal limits. Linear density persists in left lung base.. Left pleural effusion/thickening mildly increased. Right lung and pleura remain clear. Aortic arch calcification and elongation, diffuse osteopenia again noted. IMPRESSION: Apparent mild increase in left pleural effusion Persistent left basal subsegmental atelectasis versus scarring Other stable chronic changes as described
--- NOTE | 2017-03-05 12:56 | History and Physical ---
History of Present Illness General Date patient seen: Mar 05, 2017 Reason for Hospitalization: Gastrointestinal Bleed Present Illness HPI 71 year old patient with hx of CVA, hip fracture, DVT on Coumadin, [facility] resid[facility], presented with the complaint of GI bleeding vs vaginal bleeding. It's uncertain whether this is vaginal or the rectum. She's been passing some dark blood. She denies any complaints at this time including pain fever nausea vomiting diarrhea. She knows her name and thinks that she live home with her family. Allergies: Coded Allergies: No Known Allergies (Unverified , 09/18/16) Medication History Scheduled Atorvastatin Calcium* (Lipitor*), 20 MG ORAL BEDTIME, (Reported) Calcium Carbonate (Calcium Carbonate), 500 MG PO BID, (Reported) Carvedilol (Coreg), 12.5 MG ORAL EVERY 12 HOURS, (Reported) Cefepime Hcl/D5w (Cefepime-Dextrose 1 Gm/50 Ml), 1 GM IVPB Q24H, (Reported) Clotrimazole* (Lotrimin*), 1 APPLIC TOPIC TWICE A DAY, (Reported) Docusate Sodium (Docusate Sodium), 100 MG ORAL TWICE A DAY, (Reported) Donepezil Hcl* (Aricept*), 10 MG ORAL DAILY, (Reported) Donepezil Hcl* (Aricept*), 10 MG ORAL DAILY, (Reported) Duloxetine (Cymbalta), 90 MG ORAL DAILY, (Reported) Famotidine (Pepcid), 20 MG ORAL BEDTIME, (Reported) Ferrous Sulfate* (Ferrous Sulfate*), 325 MG ORAL DAILY, (Reported) Magnesium Hydroxide (Milk of Magnesia), 30 ML ORAL DAILY, (Reported) Multivitamin (Multi Vitamin Daily), 1 TAB ORAL DAILY, (Reported) Trazodone* (Trazodone*), 150 MG ORAL BEDTIME, (Reported) Warfarin Sod* (Coumadin*), 4 MG ORAL [id number]-, (Reported) Warfarin Sod* (Coumadin*), 5 MG ORAL [id number], (Reported) Scheduled PRN Acetaminophen (Acetaminophen), 650 MG ORAL Q4HR PRN for Prn Headache/Temp > 101, (Reported) Acetaminophen* (Tylenol*), 650 MG RECTAL Q4H PRN for Mild Pain/Temp > 100.5, ( Reported) Al Hydroxide/mg Hydroxide (Mag-Al Plus Suspension), 30 ML ORAL Q6HR PRN for dyspepsia prn, (Reported) Clonidine HCl (Clonidine HCl), 0.1 MG GT Q4HR PRN for SBP >160, (Reported) Hydrocodone Bit/Acetaminophen (Vicodin 5-300 Mg Tablet), 1 TAB ORAL Q6H PRN for For Pain, (Reported) Warfarin Sod* (Coumadin*), 1 MG ORAL DAILY PRN for COUMADIN PER PHARMACY TO DOSE , (Reported) Miscellaneous Medications Bisacodyl (Dulcolax), 10 MG RC, (Reported) Na Phos,M-B/Na Phos,Di-Ba (Fleet Enema), 133 ML RC, (Reported) Quinapril Hcl (Quinapril Hcl), 40 MG PO, (Reported) [vit c/ vit d], (Reported) Patient History Healthcare decision maker Resuscitation status Do Not Resuscitate Advanced Directive on File Past Medical/Surgical History Past Medical/Surgical History: (1) History of CVA (cerebrovascular accident) (2) DVT (deep venous thrombosis) (3) group home resident Review of Systems All Other Systems: negative except mentioned in HPI Physical Exam General Appearance: cachetic Lines, tubes and drains: peripheral HEENT: normocephalic, atraumatic Neck: non-tender, normal alignment Respiratory/Chest: chest wall non-tender, lungs clear Cardiovascular/Chest: normal peripheral pulses, normal rate Abdomen: normal bowel sounds, non tender Genitourinary/Rectal: normal genital exam, normal rectal exam Extremities: normal range of motion, non-tender Last 24 Hour Vital Signs Date Time Temp Pulse Resp B/P Pulse Ox O2 Delivery O2 Flow Rate FiO2 03/05/17 12:00 72 03/05/17 11:24 97.3 74 18 147/71 100 Room Air 03/05/17 08:54 76 157/79 03/05/17 08:08 97.0 76 18 157/79 100 Room Air 03/05/17 08:00 80 03/05/17 04:39 98.8 76 18 149/76 97 Room Air 03/05/17 04:23 72 18 157/58 100 Room Air 72 03/05/17 03:29 72 18 157/58 100 Room Air 03/05/17 01:07 97.8 79 14 158/75 100 Room Air 03/05/17 00:21 97.3 86 18 130/76 94 Room Air Intake and Output 03/04/17 03/05/17 18:59 06:59 Intake Total 0 ml Balance 0 ml Intake Oral 0 ml # Bowel Movements 1 Laboratory Tests Test 03/05/17 00:32 03/05/17 01:35 White Blood Count 12.9 K/UL (4.8-10.8) H Red Blood Count 3.88 M/UL (4.20-5.40) L Hemoglobin 9.3 G/DL (12.0-16.0) L Hematocrit 29.8 % (37.0-47.0) L Mean Corpuscular Volume 77 FL (80-99) L Mean Corpuscular Hemoglobin 23.8 PG (27.0-31.0) L Mean Corpuscular Hemoglobin Concent 31.1 G/DL (32.0-36.0) L Red Cell Distribution Width 13.3 % (11.6-14.8) Platelet Count 297 K/UL (150-450) Mean Platelet Volume 6.7 FL (6.5-10.1) Neutrophils (%) (Auto) 55.2 % (45.0-75.0) Lymphocytes (%) (Auto) 29.9 % (20.0-45.0) Monocytes (%) (Auto) 7.7 % (1.0-10.0) Eosinophils (%) (Auto) 6.6 % (0.0-3.0) H Basophils (%) (Auto) 0.6 % (0.0-2.0) Prothrombin Time 13.7 SEC (9.30-11.50) H Prothromb Time International Ratio 1.3 (0.9-1.1) H Activated Partial Thromboplast Time 27 SEC (23-33) Sodium Level 141 mEQ/L (135-145) Potassium Level 3.9 mEQ/L (3.4-4.9) Chloride Level 104 mEQ/L (98-107) Carbon Dioxide Level 25 mEQ/L (20-30) Anion Gap 12 (5-15) Blood Urea Nitrogen 18 mg/dL (7-23) Creatinine 0.8 mg/dL (0.5-0.9) Estimat Glomerular Filtration Rate mL/min (>60) Glucose Level 108 mg/dL (74-106) H Calcium Level 9.3 mg/dL (8.6-10.2) Total Bilirubin < 0.2 mg/dL (0.0-1.2) Aspartate Amino Transf (AST/SGOT) 15 U/L (5-40) Alanine Aminotransferase (ALT/SGPT) 8 U/L (3-33) Alkaline Phosphatase 39 U/L (35-104) Troponin I < 0.30 ng/mL (<=0.30) Total Protein 7.4 g/dL (6.6-8.7) Albumin 3.3 g/dL (3.5-5.2) L Globulin 4.1 g/dL Albumin/Globulin Ratio 0.8 (1.0-2.7) L Lipase 51 U/L (< 60) Urine Color Pale yellow Urine Appearance Cloudy Urine pH 5 (4.5-8.0) Urine Specific [place] 1.020 (1.005-1.035) Urine Protein 2+ (NEGATIVE) H Urine Glucose (UA) Negative (NEGATIVE) Urine Ketones Negative (NEGATIVE) Urine Occult Blood 4+ (NEGATIVE) H Urine Nitrite Positive (NEGATIVE) H Urine Bilirubin Negative (NEGATIVE) Urine Urobilinogen Normal MG/DL (0.0-1.0) Urine Leukocyte Esterase 3+ (NEGATIVE) H Urine RBC 5-10 /HPF (0 - 2) H Urine WBC Tntc /HPF (0 - 2) H Urine Squamous Epithelial Cells Few /LPF (NONE/OCC) Urine Bacteria Many /HPF (NONE) H Height (Feet): 5 Height (Inches): 6.00 Weight (Pounds): 178 Medications Current Medications Medications (Trade) Dose Ordered Sig/Claudia Route PRN Reason Start Time Stop Time Status Last Admin Dose Admin Acetaminophen (Tylenol) 650 mg Q4H PRN ORAL fever 03/05/17 06:45 04/04/17 06:44 Al Hydroxide/Mg Hydroxide (Mylanta II) 30 ml Q6H PRN ORAL dyspepsia 03/05/17 06:45 04/04/17 06:44 Carvedilol (Coreg) 12.5 mg EVERY 12 HOURS ORAL 03/05/17 09:00 04/04/17 08:59 03/05/17 08:54 Dextrose STAT PRN IV Hypoglycemia 03/05/17 06:45 04/04/17 06:44 Dextrose/Sodium Chloride (D5ns) 1,000 ml @ 100 mls/hr Q10H IV 03/05/17 07:30 04/04/17 07:29 03/05/17 07:58 Diphenhydramine HCl (Benadryl) 25 mg Q6H PRN ORAL Itching/Pruritis 03/05/17 06:45 04/04/17 06:44 Duloxetine HCl (Cymbalta) 90 mg DAILY ORAL 03/05/17 09:00 04/04/17 08:59 03/05/17 08:54 Morphine Sulfate (Morphine Sulfate) 2 mg Q4H PRN IVP severe Pain (Pain Scale 7-10) 03/05/17 06:45 03/12/17 06:44 Nitroglycerin (Ntg) 0.4 mg Q5M X 3 DOSES PRN SL Prn Chest Pain 03/05/17 06:45 04/04/17 06:44 Ondansetron HCl (Zofran) 4 mg Q6H PRN IVP Nausea & Vomiting 03/05/17 06:45 04/04/17 06:44 Polyethylene Glycol (Miralax) 17 gm HSPRN PRN ORAL Constipation 03/05/17 06:45 04/04/17 06:44 Temazepam (Restoril) 15 mg HSPRN PRN ORAL Insomnia 03/05/17 06:45 03/12/17 06:44 Trazodone HCl (Desyrel) 150 mg BEDTIME ORAL 03/05/17 21:00 04/04/17 20:59 Assessment/Plan Problem List: (1) Gastrointestinal hemorrhage ICD Codes: K92.2 - Gastrointestinal hemorrhage, unspecified SNOMED: 08870954 Qualifiers: Qualified Codes: K92.2 - Gastrointestinal hemorrhage, unspecified (2) Anemia ICD Codes: D64.9 - Anemia, unspecified SNOMED: 965423480, 885247301 Qualifiers: Qualified Codes: D50.8 - Other iron deficiency anemias (3) Prolonged INR ICD Codes: R79.1 - Abnormal coagulation profile SNOMED: 010628408, 915535026 (4) DVT (deep venous thrombosis) ICD Codes: I82.409 - Acute embolism and thrombosis of unspecified deep veins of unspecified lower extremity SNOMED: 451354315 (5) History of CVA (cerebrovascular accident) ICD Codes: Z86.73 - Personal history of transient ischemic attack (TIA), and cerebral infarction without residual deficits SNOMED: 044312996 (6) group home resident ICD Codes: Z59.3 - Problems related to living in residential institution SNOMED: 533602493 Assessment/Plan hold anticoagulation check h/h NPO IV fluids hematology evaluation GI evaluation MARYAM BATES Mar 05, 2017 12:56
--- NOTE | 2017-03-05 13:13 | GI Initial Consult Note ---
LockettAnay Angelaoi N.P. 03/05/17 1313: History of Present Illness General Date patient seen: Mar 05, 2017 Time patient seen: 10:00 Reason for Hospitalization: Gastrointestinal Bleed Referring physician: MARYAM BATES Reason for Consultation: GI BLEED Present Illness HPI HPI The patient presents with the complaint of GI bleeding vs vaginal bleeding. It' s uncertain whether this is vaginal or the rectum. She's been passing some dark blood. She denies any complaints at this time including pain fever nausea vomiting diarrhea. In the past patient's been on Coumadin for DVT. She denies extremity pain or swelling. GI Consult. HPI as noted above. GI consulted for GI bleeding. Pt seen on floor, awake A&O NAD with no active s/sx of N/V/D. According to the patient she has been passing dark stool, denies any recent diarrhea or vomiting. States she's had a colonoscopy x 2 years ago with unremarkable results. She presents today with anemia and leukocytosis. Denies any weight loss or changes in dietary habits. These are the d/c diagnoses 09/21: FINAL DIAGNOSES: 1. Sepsis. 2. Urinary tract infection with Extended spectrum beta-Lactamases. 3. Acute deep vein thrombosis on the right leg. 4. Hemiplegia. 5. Depression. 6. Old cerebrovascular accident. 7. Acute distal femur fracture with no displacement. Home Meds Reported Medications Warfarin Sod* (COUMADIN*) 5 Mg Tablet, 5 MG ORAL [id number], TAB 03/05/17 Warfarin Sod* (COUMADIN*) 4 Mg Tablet, 4 MG ORAL [id number]-, TAB 03/05/17 Calcium Carbonate (CALCIUM CARBONATE) 500 Mg Tablet, 500 MG PO BID, TAB 03/05/17 Donepezil Hcl* (ARICEPT*) 10 Mg Tablet, 10 MG ORAL DAILY, TAB 03/05/17 Warfarin Sod* (COUMADIN*) 1 Mg Tablet, 1 MG ORAL DAILY Y for COUMADIN PER PHARMACY TO DOSE , TAB 09/21/16 Clotrimazole* (LOTRIMIN*) 15 Gm Cream..g., 1 APPLIC TOPIC TWICE A DAY, GM 09/21/16 Clonidine HCl (Clonidine HCl) 0.1 Mg Tablet, 0.1 MG GT Q4HR Y for SBP >160, TAB 09/21/16 Cefepime Hcl/D5w (CEFEPIME-DEXTROSE 1 GM/50 ML) 1 Gm/50 Ml Piggyback, 1 GM IVPB Q24H, BAG 09/21/16 Al Hydroxide/mg Hydroxide (Mag-Al Plus Suspension) 30 Ml Oral.susp, 30 ML ORAL Q6HR Y for dyspepsia prn, ML 09/21/16 [vit c/ vit d] No Conflict Check 09/18/16 Hydrocodone Bit/Acetaminophen (VICODIN 5-300 MG TABLET) 1 Each Tablet, 1 TAB ORAL Q6H Y for For Pain, #30 TAB 0 Refills 09/18/16 Acetaminophen (Acetaminophen) 650 Mg/20.3 Ml Solution, 650 MG ORAL Q4HR Y for Prn Headache/Temp > 101, ML 0 Refills 09/18/16 Acetaminophen* (TYLENOL*) 120 Mg Supp.rect, 650 MG RECTAL Q4H Y for Mild Pain/ Temp > 100.5, SUPP 09/18/16 Trazodone* (TRAZODONE*) 150 Mg Tablet, 150 MG ORAL BEDTIME, TAB 09/18/16 Quinapril Hcl (QUINAPRIL HCL) 40 Mg Tablet, 40 MG PO, TAB 09/18/16 Famotidine (PEPCID) 20 Mg Tablet, 20 MG ORAL BEDTIME, #7 TAB 0 Refills 09/18/16 Multivitamin (MULTI VITAMIN DAILY) 1 Each Tablet, 1 TAB ORAL DAILY, #30 TAB 0 Refills 09/18/16 Magnesium Hydroxide (Milk of Magnesia) 400 Mg/5 Ml Oral.susp, 30 ML ORAL DAILY, ML 09/18/16 Atorvastatin Calcium* (LIPITOR*) 20 Mg Tablet, 20 MG ORAL BEDTIME, TAB 09/18/16 Na Phos,M-B/Na Phos,Di-Ba (Fleet Enema) 133 Ml Enema, 133 ML RC, EA 09/18/16 Ferrous Sulfate* (FERROUS SULFATE*) 325 Mg Tablet, 325 MG ORAL DAILY, #30 TAB 0 Refills 09/18/16 Bisacodyl (DULCOLAX) 10 Mg Supp.rect, 10 MG RC, SUPP 09/18/16 Docusate Sodium (DOCUSATE SODIUM) 100 Mg Tablet, 100 MG ORAL TWICE A DAY, #60 TAB 0 Refills 09/18/16 Duloxetine (Cymbalta) 20 Mg Capsule.dr, 90 MG ORAL DAILY, CAP 09/18/16 Carvedilol (Coreg) 12.5 Mg Tablet, 12.5 MG ORAL EVERY 12 HOURS, TAB 09/18/16 Donepezil Hcl* (ARICEPT*) 10 Mg Tablet, 10 MG ORAL DAILY, TAB 09/18/16 Med list reviewed/reconciled: Yes Allergies: Coded Allergies: No Known Allergies (Unverified , 09/18/16) Patient History History Provided By: Medical Record PMH Narrative Past Medical History: No History, Except For Hx Hypertension: Yes - osteporosis Hx Gastrointestinal Problems: Yes - GERD Hx Neurological Problems: Yes - dementia Hx Cerebrovascular Accident: Yes Hx Dementia: Yes Review of Systems All Other Systems: negative except mentioned in HPI Physical Exam Vital Signs Date Time Temp Pulse Resp B/P Pulse Ox O2 Delivery O2 Flow Rate FiO2 03/05/17 00:21 97.3 86 18 130/76 94 Room Air Sp02 EP Interpretation: reviewed Labs Laboratory Tests Test 03/05/17 00:32 03/05/17 01:35 White Blood Count 12.9 K/UL (4.8-10.8) H Red Blood Count 3.88 M/UL (4.20-5.40) L Hemoglobin 9.3 G/DL (12.0-16.0) L Hematocrit 29.8 % (37.0-47.0) L Mean Corpuscular Volume 77 FL (80-99) L Mean Corpuscular Hemoglobin 23.8 PG (27.0-31.0) L Mean Corpuscular Hemoglobin Concent 31.1 G/DL (32.0-36.0) L Red Cell Distribution Width 13.3 % (11.6-14.8) Platelet Count 297 K/UL (150-450) Mean Platelet Volume 6.7 FL (6.5-10.1) Neutrophils (%) (Auto) 55.2 % (45.0-75.0) Lymphocytes (%) (Auto) 29.9 % (20.0-45.0) Monocytes (%) (Auto) 7.7 % (1.0-10.0) Eosinophils (%) (Auto) 6.6 % (0.0-3.0) H Basophils (%) (Auto) 0.6 % (0.0-2.0) Prothrombin Time 13.7 SEC (9.30-11.50) H Prothromb Time International Ratio 1.3 (0.9-1.1) H Activated Partial Thromboplast Time 27 SEC (23-33) Sodium Level 141 mEQ/L (135-145) Potassium Level 3.9 mEQ/L (3.4-4.9) Chloride Level 104 mEQ/L (98-107) Carbon Dioxide Level 25 mEQ/L (20-30) Anion Gap 12 (5-15) Blood Urea Nitrogen 18 mg/dL (7-23) Creatinine 0.8 mg/dL (0.5-0.9) Estimat Glomerular Filtration Rate mL/min (>60) Glucose Level 108 mg/dL (74-106) H Calcium Level 9.3 mg/dL (8.6-10.2) Total Bilirubin < 0.2 mg/dL (0.0-1.2) Aspartate Amino Transf (AST/SGOT) 15 U/L (5-40) Alanine Aminotransferase (ALT/SGPT) 8 U/L (3-33) Alkaline Phosphatase 39 U/L (35-104) Troponin I < 0.30 ng/mL (<=0.30) Total Protein 7.4 g/dL (6.6-8.7) Albumin 3.3 g/dL (3.5-5.2) L Globulin 4.1 g/dL Albumin/Globulin Ratio 0.8 (1.0-2.7) L Lipase 51 U/L (< 60) Urine Color Pale yellow Urine Appearance Cloudy Urine pH 5 (4.5-8.0) Urine Specific [place] 1.020 (1.005-1.035) Urine Protein 2+ (NEGATIVE) H Urine Glucose (UA) Negative (NEGATIVE) Urine Ketones Negative (NEGATIVE) Urine Occult Blood 4+ (NEGATIVE) H Urine Nitrite Positive (NEGATIVE) H Urine Bilirubin Negative (NEGATIVE) Urine Urobilinogen Normal MG/DL (0.0-1.0) Urine Leukocyte Esterase 3+ (NEGATIVE) H Urine RBC 5-10 /HPF (0 - 2) H Urine WBC Tntc /HPF (0 - 2) H Urine Squamous Epithelial Cells Few /LPF (NONE/OCC) Urine Bacteria Many /HPF (NONE) H General Appearance: well appearing, no apparent distress, alert Head: normocephalic EENT: normal ENT inspection Neck: supple Respiratory: normal breath sounds, no respiratory distress Cardiovascular: regular rhythm Gastrointestinal: soft, normal bowel sounds Rectal: deferred Genitourinary: normal inspection Musculoskeletal: normal inspection, back normal Neurologic: alert Psychiatric: normal inspection Skin: normal inspection, normal color, no rash Lymphatic: normal inspection, no adenopathy Current Medications Current Medications Medications (Trade) Dose Ordered Sig/Claudia Route PRN Reason Start Time Stop Time Status Last Admin Dose Admin Acetaminophen (Tylenol) 650 mg Q4H PRN ORAL fever 03/05/17 06:45 04/04/17 06:44 Al Hydroxide/Mg Hydroxide (Mylanta II) 30 ml Q6H PRN ORAL dyspepsia 03/05/17 06:45 04/04/17 06:44 Carvedilol (Coreg) 12.5 mg EVERY 12 HOURS ORAL 03/05/17 09:00 04/04/17 08:59 03/05/17 08:54 Dextrose STAT PRN IV Hypoglycemia 03/05/17 06:45 04/04/17 06:44 Dextrose/Sodium Chloride (D5ns) 1,000 ml @ 100 mls/hr Q10H IV 03/05/17 07:30 04/04/17 07:29 03/05/17 07:58 Diphenhydramine HCl (Benadryl) 25 mg Q6H PRN ORAL Itching/Pruritis 03/05/17 06:45 04/04/17 06:44 Duloxetine HCl (Cymbalta) 90 mg DAILY ORAL 03/05/17 09:00 04/04/17 08:59 03/05/17 08:54 Morphine Sulfate (Morphine Sulfate) 2 mg Q4H PRN IVP severe Pain (Pain Scale 7-10) 03/05/17 06:45 03/12/17 06:44 Nitroglycerin (Ntg) 0.4 mg Q5M X 3 DOSES PRN SL Prn Chest Pain 03/05/17 06:45 04/04/17 06:44 Ondansetron HCl (Zofran) 4 mg Q6H PRN IVP Nausea & Vomiting 03/05/17 06:45 04/04/17 06:44 Polyethylene Glycol (Miralax) 17 gm HSPRN PRN ORAL Constipation 03/05/17 06:45 04/04/17 06:44 Temazepam (Restoril) 15 mg HSPRN PRN ORAL Insomnia 03/05/17 06:45 03/12/17 06:44 Trazodone HCl (Desyrel) 150 mg BEDTIME ORAL 03/05/17 21:00 04/04/17 20:59 GI: Plan Problems: (1) Anemia (2) Gastrointestinal hemorrhage (3) Depression Plan EGD tentatively to be scheduled Wednesdays03/07/16. - CLD, NPO @ [place] day prior to procedure. - hold all blood thinners PPI PO anemia work up OB stool r/o GI bleed monitor H&H, transfuse prn fu labs Discussed with Dr. Daniels. Thank you for referring this patient, we will follow. ANGÉLICA DANIELS 03/07/17 0801: History of Present Illness General Reason for Hospitalization: Gastrointestinal Bleed Present Illness Home Meds Reported Medications Warfarin Sod* (COUMADIN*) 5 Mg Tablet, 5 MG ORAL [id number], TAB 03/05/17 Warfarin Sod* (COUMADIN*) 4 Mg Tablet, 4 MG ORAL ard-ptma-aga-, TAB 03/05/17 Calcium Carbonate (CALCIUM CARBONATE) 500 Mg Tablet, 500 MG PO BID, TAB 03/05/17 Donepezil Hcl* (ARICEPT*) 10 Mg Tablet, 10 MG ORAL DAILY, TAB 03/05/17 Warfarin Sod* (COUMADIN*) 1 Mg Tablet, 1 MG ORAL DAILY Y for COUMADIN PER PHARMACY TO DOSE , TAB 09/21/16 Clotrimazole* (LOTRIMIN*) 15 Gm Cream..g., 1 APPLIC TOPIC TWICE A DAY, GM 09/21/16 Clonidine HCl (Clonidine HCl) 0.1 Mg Tablet, 0.1 MG GT Q4HR Y for SBP >160, TAB 09/21/16 Cefepime Hcl/D5w (CEFEPIME-DEXTROSE 1 GM/50 ML) 1 Gm/50 Ml Piggyback, 1 GM IVPB Q24H, BAG 09/21/16 Al Hydroxide/mg Hydroxide (Mag-Al Plus Suspension) 30 Ml Oral.susp, 30 ML ORAL Q6HR Y for dyspepsia prn, ML 09/21/16 [vit c/ vit d] No Conflict Check 09/18/16 Hydrocodone Bit/Acetaminophen (VICODIN 5-300 MG TABLET) 1 Each Tablet, 1 TAB ORAL Q6H Y for For Pain, #30 TAB 0 Refills 09/18/16 Acetaminophen (Acetaminophen) 650 Mg/20.3 Ml Solution, 650 MG ORAL Q4HR Y for Prn Headache/Temp > 101, ML 0 Refills 09/18/16 Acetaminophen* (TYLENOL*) 120 Mg Supp.rect, 650 MG RECTAL Q4H Y for Mild Pain/ Temp > 100.5, SUPP 09/18/16 Trazodone* (TRAZODONE*) 150 Mg Tablet, 150 MG ORAL BEDTIME, TAB 09/18/16 Quinapril Hcl (QUINAPRIL HCL) 40 Mg Tablet, 40 MG PO, TAB 09/18/16 Famotidine (PEPCID) 20 Mg Tablet, 20 MG ORAL BEDTIME, #7 TAB 0 Refills 09/18/16 Multivitamin (MULTI VITAMIN DAILY) 1 Each Tablet, 1 TAB ORAL DAILY, #30 TAB 0 Refills 09/18/16 Magnesium Hydroxide (Milk of Magnesia) 400 Mg/5 Ml Oral.susp, 30 ML ORAL DAILY, ML 09/18/16 Atorvastatin Calcium* (LIPITOR*) 20 Mg Tablet, 20 MG ORAL BEDTIME, TAB 09/18/16 Na Phos,M-B/Na Phos,Di-Ba (Fleet Enema) 133 Ml Enema, 133 ML RC, EA 09/18/16 Ferrous Sulfate* (FERROUS SULFATE*) 325 Mg Tablet, 325 MG ORAL DAILY, #30 TAB 0 Refills 09/18/16 Bisacodyl (DULCOLAX) 10 Mg Supp.rect, 10 MG RC, SUPP 09/18/16 Docusate Sodium (DOCUSATE SODIUM) 100 Mg Tablet, 100 MG ORAL TWICE A DAY, #60 TAB 0 Refills 09/18/16 Duloxetine (Cymbalta) 20 Mg Capsule.dr, 90 MG ORAL DAILY, CAP 09/18/16 Carvedilol (Coreg) 12.5 Mg Tablet, 12.5 MG ORAL EVERY 12 HOURS, TAB 09/18/16 Donepezil Hcl* (ARICEPT*) 10 Mg Tablet, 10 MG ORAL DAILY, TAB 09/18/16 Allergies: Coded Allergies: No Known Allergies (Unverified , 09/18/16) GI: Plan Plan The patient was seen and examined at bedside and all new and available data was reviewed in the patients chart. I agree with the above findings, impression and plan. (Patient seen earlier today. Signature stamp does not reflect patient encounter time.). -Anay Jordan MD, N.P. Mar 05, 2017 13:13 ANGÉLICA DANIELS Mar 07, 2017 08:01
[2017-03-05] MEDS: TraZODone 100mg tab ORAL SCH (20:41)
[2017-03-06 00:08] VITALS: BP 155/78
[2017-03-06] MEDS: D5NS 1,000 ML IV SCH ×3 (03:47→23:04)
[2017-03-06 04:08] VITALS: BP 150/80
[2017-03-06 08:00] VITALS: BP 132/57
[2017-03-06] MEDS: Carvedilol 12.5mg tab ORAL SCH ×2 (08:20→20:42)
[2017-03-06] MEDS: DULoxetine 30mg cap ORAL SCH (08:20)
--- NOTE | 2017-03-06 08:47 | General Progress Note ---
Assessment/Plan Problem List: (1) Anemia ICD Codes: D64.9 - Anemia, unspecified SNOMED: 324696996, 839331398 Qualifiers: Qualified Codes: D50.8 - Other iron deficiency anemias (2) Gastrointestinal hemorrhage ICD Codes: K92.2 - Gastrointestinal hemorrhage, unspecified SNOMED: 29188740 Qualifiers: Qualified Codes: K92.2 - Gastrointestinal hemorrhage, unspecified (3) senior care resident ICD Codes: Z59.3 - Problems related to living in residential institution SNOMED: 124288679 Assessment/Plan patient dos not want clear liquid diet anymore cont ppi EGD in AM fu CBC Subjective ROS Limited/Unobtainable: Yes Allergies: Coded Allergies: No Known Allergies (Unverified , 09/18/16) Subjective wants to eat food black stools per nurses Objective Last 24 Hour Vital Signs Date Time Temp Pulse Resp B/P Pulse Ox O2 Delivery O2 Flow Rate FiO2 03/06/17 08:20 87 132/57 03/06/17 08:00 96.7 87 17 132/57 100 Room Air 03/06/17 04:08 98.3 78 19 150/80 98 Room Air 03/06/17 04:00 76 03/06/17 00:08 98.2 77 17 155/78 96 Room Air 03/06/17 00:00 83 03/05/17 20:40 80 155/75 03/05/17 20:00 81 03/05/17 20:00 98.5 84 19 157/73 97 Room Air 03/05/17 16:00 81 03/05/17 15:31 97.1 80 18 141/70 100 Room Air 03/05/17 12:00 72 03/05/17 11:24 97.3 74 18 147/71 100 Room Air 03/05/17 08:54 76 157/79 Intake and Output 03/05/17 03/06/17 19:00 07:00 Intake Total 1956 ml 1200 ml Output Total 350 ml 400 ml Balance 1606 ml 800 ml Intake Oral 800 ml IV Total 1156 ml 1200 ml Output Urine Total 350 ml 400 ml # Bowel Movements 1 2 Laboratory Tests 03/05/17 16:00: Stool Occult Blood Positive 03/06/17 02:40: Stool Occult Blood Positive 03/06/17 08:00: White Blood Count [Pending], Red Blood Count [Pending], Hemoglobin [Pending], Hematocrit [Pending], Mean Corpuscular Volume [Pending], Mean Corpuscular Hemoglobin [Pending], Mean Corpuscular Hemoglobin Concent [Pending], Red Cell Distribution Width [Pending], Platelet Count [Pending], Mean Platelet Volume [ Pending], Neutrophils (%) (Auto) [Pending], Lymphocytes (%) (Auto) [Pending], Monocytes (%) (Auto) [Pending], Eosinophils (%) (Auto) [Pending], Basophils (%) (Auto) [Pending], Erythrocyte Sedimentation Rate [Pending], Reticulocyte Count [ Pending], Prothrombin Time [Pending], Prothromb Time International Ratio [ Pending], Activated Partial Thromboplast Time [Pending], Sodium Level [Pending] , Potassium Level [Pending], Chloride Level [Pending], Carbon Dioxide Level [ Pending], Blood Urea Nitrogen [Pending], Creatinine [Pending], Estimat Glomerular Filtration Rate [Pending], Glucose Level [Pending], Calcium Level [ Pending], Iron Level [Pending], Unsaturated Iron Binding [Pending], Total Bilirubin [Pending], Aspartate Amino Transf (AST/SGOT) [Pending], Alanine Aminotransferase (ALT/SGPT) [Pending], Alkaline Phosphatase [Pending], Lactate Dehydrogenase [Pending], Total Protein [Pending], Albumin [Pending], Globulin [ Pending], Amylase Level [Pending], Lipase [Pending], Carcinoembryonic Antigen [ Pending], Vitamin B12 Level [Pending], Folate [Pending] Height (Feet): 5 Height (Inches): 6.00 Weight (Pounds): 178 General Appearance: alert EENT: normal ENT inspection Neck: supple Cardiovascular: normal rate Respiratory/Chest: lungs clear Abdomen: normal bowel sounds, non tender, soft Extremities: non-tender ANGÉLICA DANIELS Mar 06, 2017 08:47
[2017-03-06 08:51] LABS: MEAN CORPUSCULAR HEMOGLOBIN 23.5 PG (27.0-31.0); MEAN CORPUSCULAR HGB CONC 30.1 G/DL (32.0-36.0); MEAN CORPUSCULAR VOLUME 78 FL (80-99); MEAN PLATELET VOLUME 6.6 FL (6.5-10.1); PLATELET COUNT 271 K/UL (150-450); RED BLOOD COUNT 3.58 M/UL (4.20-5.40); RED CELL DISTRIBUTION WIDTH 13.4 % (11.6-14.8); WHITE BLOOD COUNT 11.9 K/UL (4.8-10.8)
[2017-03-06 08:58] LABS: PROTHROMBIN TIME 10.7 SEC (9.30-11.50)
[2017-03-06 09:05] LABS: ALANINE AMINOTRANSFERASE 6 U/L (3-33); ALBUMIN/GLOBULIN RATIO 0.7 (1.0-2.7); AMYLASE 23 U/L (10-110); ANION GAP 10 (5-15); ASPARTATE AMINO TRANSFERASE 12 U/L (5-40); CALCIUM 7.7 mg/dL (8.6-10.2); CARBON DIOXIDE 20 mEQ/L (20-30); CHLORIDE 111 mEQ/L (98-107); CREATININE 0.8 mg/dL (0.5-0.9); HEMOLYSIS 0; LIPASE 37 U/L (< 60); POTASSIUM 3.4 mEQ/L (3.4-4.9); SODIUM 141 mEQ/L (135-145); TOTAL PROTEIN 6.1 g/dL (6.6-8.7)
[2017-03-06 09:24] LABS: PATH BLOOD SMEAR/OMC SENT TO PATHOLOGIST
[2017-03-06 09:25] LABS: BAND NEUTROPHILS % (MANUAL) 0 % (0-8); BASOPHILS % (MANUAL) 0 % (0-2); EOSINOPHILS % (MANUAL) 5 % (0-3); LYMPHOCYTES % (MANUAL) 26 % (20-45); MICROCYTES 1+; NEUTROPHILS % (MANUAL) 64 % (45-75); PLATELET ESTIMATE ADEQUATE; PLATELET MORPHOLOGY NORMAL; TOTAL CELLS COUNTED 100
[2017-03-06 09:26] LABS: HYPOCHROMASIA 1+; LACTATE DEHYDROGENASE 146 U/L (135-230)
[2017-03-06 09:39] LABS: HEMOLYSIS 0; IRON 21 ug/dL (37-145); TOTAL IRON BINDING CAPACITY 162 ug/dL (250-400)
--- NOTE | 2017-03-06 09:39 | Pulmonology Progress Note ---
Assessment/Plan Problems: (1) Gastrointestinal hemorrhage (2) Anemia (3) Prolonged INR (4) DVT (deep venous thrombosis) (5) History of CVA (cerebrovascular accident) (6) [facility] resident Assessment/Plan NPO IV fluids transfuse prn check h/h EGD in am keep in teli labs in am Subjective ROS Limited/Unobtainable: No Constitutional: Reports: no symptoms Respiratory: Reports: no symptoms Allergies: Coded Allergies: No Known Allergies (Unverified , 09/18/16) Objective Last 24 Hour Vital Signs Date Time Temp Pulse Resp B/P Pulse Ox O2 Delivery O2 Flow Rate FiO2 03/06/17 08:20 87 132/57 03/06/17 08:00 96.7 87 17 132/57 100 Room Air 03/06/17 08:00 87 03/06/17 04:08 98.3 78 19 150/80 98 Room Air 03/06/17 04:00 76 03/06/17 00:08 98.2 77 17 155/78 96 Room Air 03/06/17 00:00 83 03/05/17 20:40 80 155/75 03/05/17 20:00 81 03/05/17 20:00 98.5 84 19 157/73 97 Room Air 03/05/17 16:00 81 03/05/17 15:31 97.1 80 18 141/70 100 Room Air 03/05/17 12:00 72 03/05/17 11:24 97.3 74 18 147/71 100 Room Air Intake and Output 03/05/17 03/06/17 19:00 07:00 Intake Total 1956 ml 1200 ml Output Total 350 ml 400 ml Balance 1606 ml 800 ml Intake Oral 800 ml IV Total 1156 ml 1200 ml Output Urine Total 350 ml 400 ml # Bowel Movements 1 2 General Appearance: WD/WN HEENT: normocephalic, atraumatic Respiratory/Chest: chest wall non-tender, lungs clear Cardiovascular: normal peripheral pulses, normal rate Abdomen: normal bowel sounds, soft, non tender Genitourinary: normal external genitalia Extremities: no clubbing Skin: no rash Microbiology Date/Time Source Procedure Growth Status 03/05/17 01:35 Urine,Clean Catch Urine Culture - Preliminary Gram Negative Bacillus 1 Resulted Laboratory Tests 03/05/17 16:00: Stool Occult Blood Positive 03/06/17 02:40: Stool Occult Blood Positive 03/06/17 08:00: White Blood Count 11.9H, Red Blood Count 3.58L, Hemoglobin 8.4L, Hematocrit 28.0L, Mean Corpuscular Volume 78L, Mean Corpuscular Hemoglobin 23.5L, Mean Corpuscular Hemoglobin Concent 30.1L, Red Cell Distribution Width 13.4, Platelet Count 271, Mean Platelet Volume 6.6, Neutrophils (%) (Auto) , Lymphocytes (%) (Auto) , Monocytes (%) (Auto) , Eosinophils (%) (Auto) , Basophils (%) (Auto) , Differential Total Cells Counted 100, Neutrophils % ( Manual) 64, Lymphocytes % (Manual) 26, Monocytes % (Manual) 5, Eosinophils % ( Manual) 5H, Basophils % (Manual) 0, Band Neutrophils 0, Platelet Estimate Adequate, Platelet Morphology Normal, Hypochromasia 1+, Microcytosis 1+, Erythrocyte Sedimentation Rate , Reticulocyte Count [Pending], Prothrombin Time 10.7, Prothromb Time International Ratio 1.0, Activated Partial Thromboplast Time 27, Sodium Level 141, Potassium Level 3.4, Chloride Level 111H, Carbon Dioxide Level 20, Anion Gap 10, Blood Urea Nitrogen 10, Creatinine 0.8, Estimat Glomerular Filtration Rate , Glucose Level 141H, Calcium Level 7.7L, Iron Level [Pending], Unsaturated Iron Binding [Pending], Total Bilirubin < 0.2, Aspartate Amino Transf (AST/SGOT) 12, Alanine Aminotransferase (ALT/SGPT) 6, Alkaline Phosphatase 33L, Lactate Dehydrogenase 146, Total Protein 6.1L, Albumin 2.7L, Globulin 3.4, Albumin/Globulin Ratio 0.7L, Amylase Level 23, Lipase 37, Carcinoembryonic Antigen 2.4, Vitamin B12 Level 1048H, Folate [Pending] Current Medications Medications (Trade) Dose Ordered Sig/Claudia Route PRN Reason Start Time Stop Time Status Last Admin Dose Admin Acetaminophen (Tylenol) 650 mg Q4H PRN ORAL fever 03/05/17 06:45 04/04/17 06:44 Al Hydroxide/Mg Hydroxide (Mylanta II) 30 ml Q6H PRN ORAL dyspepsia 03/05/17 06:45 04/04/17 06:44 Carvedilol (Coreg) 12.5 mg EVERY 12 HOURS ORAL 03/05/17 09:00 04/04/17 08:59 03/06/17 08:20 Dextrose STAT PRN IV Hypoglycemia 03/05/17 06:45 04/04/17 06:44 Dextrose/Sodium Chloride (D5ns) 1,000 ml @ 100 mls/hr Q10H IV 03/05/17 07:30 04/04/17 07:29 03/06/17 03:47 Diphenhydramine HCl (Benadryl) 25 mg Q6H PRN ORAL Itching/Pruritis 03/05/17 06:45 04/04/17 06:44 Duloxetine HCl (Cymbalta) 90 mg DAILY ORAL 03/05/17 09:00 04/04/17 08:59 03/06/17 08:20 Morphine Sulfate (Morphine Sulfate) 2 mg Q4H PRN IVP severe Pain (Pain Scale 7-10) 03/05/17 06:45 03/12/17 06:44 Nitroglycerin (Ntg) 0.4 mg Q5M X 3 DOSES PRN SL Prn Chest Pain 03/05/17 06:45 04/04/17 06:44 Ondansetron HCl (Zofran) 4 mg Q6H PRN IVP Nausea & Vomiting 03/05/17 06:45 04/04/17 06:44 Pantoprazole (Protonix) 40 mg DAILY ORAL 03/06/17 09:00 04/05/17 08:59 03/06/17 08:20 Polyethylene Glycol (Miralax) 17 gm HSPRN PRN ORAL Constipation 03/05/17 06:45 04/04/17 06:44 Temazepam (Restoril) 15 mg HSPRN PRN ORAL Insomnia 03/05/17 06:45 03/12/17 06:44 Trazodone HCl (Desyrel) 150 mg BEDTIME ORAL 03/05/17 21:00 04/04/17 20:59 03/05/17 20:41 MARYAM BATES Mar 06, 2017 09:39
[2017-03-06 09:57] LABS: RETICULOCYTE COUNT 1.1 % (0.0-2.0)
[2017-03-06 10:34] LABS: ERYTHROCYTE SEDIMENTATION RATE 61 MM/HR (0-30)
[2017-03-06 12:00] VITALS: BP 157/70
--- NOTE | 2017-03-06 12:34 | Cardiology Progress Note ---
Assessment/Plan Assessment/Plan nsvt gibleed anemia iron def hx of dvt on anti coag electolyte abn abn ekg repeat torp mg adn k supplement unless trop neg woudl not further pursit cardiac arellano thank you Objective Last 24 Hour Vital Signs Date Time Temp Pulse Resp B/P Pulse Ox O2 Delivery O2 Flow Rate FiO2 03/06/17 08:20 87 132/57 03/06/17 08:00 96.7 87 17 132/57 100 Room Air 03/06/17 08:00 87 03/06/17 04:08 98.3 78 19 150/80 98 Room Air 03/06/17 04:00 76 03/06/17 00:08 98.2 77 17 155/78 96 Room Air 03/06/17 00:00 83 03/05/17 20:40 80 155/75 03/05/17 20:00 81 03/05/17 20:00 98.5 84 19 157/73 97 Room Air 03/05/17 16:00 81 03/05/17 15:31 97.1 80 18 141/70 100 Room Air Intake and Output 03/05/17 03/06/17 19:00 07:00 Intake Total 1956 ml 1200 ml Output Total 350 ml 400 ml Balance 1606 ml 800 ml Intake Oral 800 ml IV Total 1156 ml 1200 ml Output Urine Total 350 ml 400 ml # Bowel Movements 1 2 Laboratory Tests Test 03/05/17 16:00 03/06/17 02:40 03/06/17 08:00 Stool Occult Blood Positive (NEGATIVE) Positive (NEGATIVE) White Blood Count 11.9 K/UL (4.8-10.8) H Red Blood Count 3.58 M/UL (4.20-5.40) L Hemoglobin 8.4 G/DL (12.0-16.0) L Hematocrit 28.0 % (37.0-47.0) L Mean Corpuscular Volume 78 FL (80-99) L Mean Corpuscular Hemoglobin 23.5 PG (27.0-31.0) L Mean Corpuscular Hemoglobin Concent 30.1 G/DL (32.0-36.0) L Red Cell Distribution Width 13.4 % (11.6-14.8) Platelet Count 271 K/UL (150-450) Mean Platelet Volume 6.6 FL (6.5-10.1) Neutrophils (%) (Auto) % (45.0-75.0) Lymphocytes (%) (Auto) % (20.0-45.0) Monocytes (%) (Auto) % (1.0-10.0) Eosinophils (%) (Auto) % (0.0-3.0) Basophils (%) (Auto) % (0.0-2.0) Differential Total Cells Counted 100 Neutrophils % (Manual) 64 % (45-75) Lymphocytes % (Manual) 26 % (20-45) Monocytes % (Manual) 5 % (1-10) Eosinophils % (Manual) 5 % (0-3) H Basophils % (Manual) 0 % (0-2) Band Neutrophils 0 % (0-8) Platelet Estimate Adequate Platelet Morphology Normal Hypochromasia 1+ Microcytosis 1+ Erythrocyte Sedimentation Rate 61 MM/HR (0-30) H Reticulocyte Count 1.1 % (0.0-2.0) Prothrombin Time 10.7 SEC (9.30-11.50) Prothromb Time International Ratio 1.0 (0.9-1.1) Activated Partial Thromboplast Time 27 SEC (23-33) Sodium Level 141 mEQ/L (135-145) Potassium Level 3.4 mEQ/L (3.4-4.9) Chloride Level 111 mEQ/L (98-107) H Carbon Dioxide Level 20 mEQ/L (20-30) Anion Gap 10 (5-15) Blood Urea Nitrogen 10 mg/dL (7-23) Creatinine 0.8 mg/dL (0.5-0.9) Estimat Glomerular Filtration Rate mL/min (>60) Glucose Level 141 mg/dL (74-106) H Calcium Level 7.7 mg/dL (8.6-10.2) L Iron Level 21 ug/dL (37-145) L Total Iron Binding Capacity 162 ug/dL (250-400) L Percent Iron Saturation 13 % (15-50) L Unsaturated Iron Binding 141 ug/dL (112-346) Total Bilirubin < 0.2 mg/dL (0.0-1.2) Aspartate Amino Transf (AST/SGOT) 12 U/L (5-40) Alanine Aminotransferase (ALT/SGPT) 6 U/L (3-33) Alkaline Phosphatase 33 U/L (35-104) L Lactate Dehydrogenase 146 U/L (135-230) Total Protein 6.1 g/dL (6.6-8.7) L Albumin 2.7 g/dL (3.5-5.2) L Globulin 3.4 g/dL Albumin/Globulin Ratio 0.7 (1.0-2.7) L Amylase Level 23 U/L (10-110) Lipase 37 U/L (< 60) Carcinoembryonic Antigen 2.4 ng/mL Vitamin B12 Level 1048 pg/mL (211-946) H Folate Pending Microbiology Date/Time Source Procedure Growth Status 03/05/17 16:00 Wound Gram Stain - Final Resulted 03/05/17 16:00 Wound Wound Culture Pending Resulted 03/05/17 03:17 Nasal Nares MRSA Culture - Final Staphylococcus Aureus - Mrsa Complete 03/05/17 01:35 Urine,Clean Catch Urine Culture - Preliminary Gram Negative Bacillus 1 Resulted KYE GARCIA Mar 06, 2017 12:34
[2017-03-06 16:00] VITALS: BP 143/64
--- NOTE | 2017-03-06 17:01 | Consultation ---
DATE OF CONSULTATION: 03/06/2017 CARDIOLOGY CONSULTATION REFERRING PHYSICIAN: Otoniel Nicole M.D. REASON FOR REFERRAL: Wide complex tachycardia. HISTORY OF PRESENT ILLNESS: This is an elderly female, who is a resident of convalescent facility and the patient was transferred to the hospital, because of possibility of either gastrointestinal bleeding or vaginal bleeding admitted to the hospital. She has been on monitor and was noted to have some wide complex tachycardia. Therefore, this consultation requested. The patient also denies any chest pain, pressure, tightness, or heaviness. No PND. No orthopnea. She uses two pillows, really not ambulatory, not dizzy. Does not stand or walk much. Although, she says she can, she just does not like to. PAST MEDICAL HISTORY: Positive for history of prior episodes of sepsis, urinary tract infection, deep has venous thrombosis of the right leg, hemiplegia, depression, CVA, and distal femoral fracture. PHYSICAL EXAMINATION: GENERAL: Her physical exam shows be elderly female, in no respiratory distress. VITAL SIGNS: Blood pressure is anywhere between 132/57 to 155/78, heart rate in the 70s and 80s, and temperature 96.7 degrees. HEENT: Unremarkable. NECK: Supple. No jugular venous distention. LUNGS: Clear to auscultation and percussion. CARDIAC: Regular rate and rhythm. No heaves. No thrills. No gallops noted. ABDOMEN: Soft and nontender. Positive bowel sounds. EXTREMITIES: There is no clubbing, cyanosis, nor is there any edema. NEUROLOGIC: She is awake, alert, and responsive, in no respiratory distress. She does appear somewhat pale however. LABORATORY VALUES: Telemetry data shows sinus rhythm with one episode of wide complex tachycardia beats. EKG shows sinus with T-wave inversion in multiple leads and V3, V4, V5, and V6 and also in V2 as well as 1 and aVL as well as lead 2 and aVF and this is present on repeat EKG as well. White count 11.9, hemoglobin 8.4, and platelet count of 271,000. Sodium is 141, potassium 3.4, chloride 111, bicarbonate 20, BUN of 10, creatinine 0.8, glucose of 141, and calcium is 7.7. Iron 26, TIBC of 162, and 13% saturation. Bilirubin less than 0.2. LDH 146. Troponin one set is negative. Albumin 2.6. Vitamin B12 of 1048. CEA 2.7. Amylase is 37. Coags, INR of 1.0 and PTT of 27. Urinalysis, too numerous to count, WBC 5 to 10 RBCs, and 3+ leukocyte esterase. Stool for occult blood positive on two separate occasions. Chest x-ray was performed and it shows basically mild left-sided pleural effusion. Persistent left subsegmental atelectasis versus scarring and an echocardiogram has been performed previously back in September showing ejection fraction of 55%. No significant valvular lesions noted. ASSESSMENT: 1. Anemia. 2. OB positive stools. 3. Nonsustained ventricular tachycardia. 4. History of cerebrovascular accident. 5. History of deep venous thrombosis on chronic anticoagulation therapy previously. 6. Hypertension. 7. Iron deficiency. Dr. Nicole, this patient was seen in cardiac consultation. Cardiac enzymes are negative at least on the first occasion, repeat will be ordered. EKG will be repeated. Electrocardiogram is abnormal, however, chronicity is unknown, I am unable to pull up the report of electrocardiogram that was performed previously in September. The report however shows sinus tachycardia, at that time left ventricular hypertrophy with repolarization abnormalities. Nevertheless, unless this patient has significant abnormalities, cardiac enzyme as probably not pursue it any further aside from correcting any electrolyte deficit that may be present including the potassium as well as possibility of the magnesium deficit if noted. Dr. Nicole, thank you for allowing me to participate in this patient care. Adrián Smart M.D. DR: SPARKLE JOB#: [id number] CC:
[2017-03-06 20:00] VITALS: BP 140/77
[2017-03-06] MEDS: TraZODone 100mg tab ORAL SCH (20:43)
[2017-03-07] VITALS (16 sets, daily range): BP systolic 140–187; BP diastolic 64–95
[2017-03-07 05:06] LABS: MEAN CORPUSCULAR HEMOGLOBIN 23.3 PG (27.0-31.0); MEAN CORPUSCULAR HGB CONC 29.8 G/DL (32.0-36.0); MEAN CORPUSCULAR VOLUME 78 FL (80-99); MEAN PLATELET VOLUME 5.7 FL (6.5-10.1); PLATELET COUNT 262 K/UL (150-450); RED BLOOD COUNT 3.28 M/UL (4.20-5.40); RED CELL DISTRIBUTION WIDTH 13.9 % (11.6-14.8); WHITE BLOOD COUNT 7.8 K/UL (4.8-10.8)
[2017-03-07 05:19] LABS: ANION GAP 7 (5-15); CALCIUM 7.9 mg/dL (8.6-10.2); CARBON DIOXIDE 22 mEQ/L (20-30); CHLORIDE 115 mEQ/L (98-107); CREATININE 0.7 mg/dL (0.5-0.9); HEMOLYSIS 1; POTASSIUM 3.8 mEQ/L (3.4-4.9); SODIUM 144 mEQ/L (135-145)
[2017-03-07 05:20] LABS: TROPONIN I < 0.30 ng/mL (<=0.30)
[2017-03-07] MEDS ORDERED: Nitroglycerin 2% oint pkt TOPIC ONE (06:15)
--- NOTE | 2017-03-07 07:57 | Pre-Procedure Note/Attestation ---
Pre-Procedure Note/Attestation Complete Prior to Procedure Planned Procedure: not applicable Procedure Narrative: egd Indications for Procedure Pre-Operative Diagnosis: anemia, GIB Attestation I attest that I discussed the nature of the procedure; its benefits; risks and complications; and alternatives (and the risks and benefits of such alternatives ), prior to the procedure, with the patient (or the patient's legal dealer compliance representative). I attest that, if there was a reasonable possibility of needing a blood transfusion, the patient (or the patient's legal dealer compliance representative) was given the [facility] standardized written summary, pursuant to the Bill Silvia Blood Safety Act ([place] Health and Safety Code # 1645, as amended). I attest that I re-evaluated the patient just prior to the surgery and that there has been no change in the patient's H&P, except as documented below: ANGÉLICA DANIELS Mar 07, 2017 07:57
[2017-03-07] MEDS ORDERED: fentaNYL 100 mcg/2 mL IV ONE (08:00)
[2017-03-07] MEDS ORDERED: Ketorolac 30mg Inj ONE (08:00)
[2017-03-07] MEDS ORDERED: Midazolam 2mg/2ml Inj ONE (08:00)
[2017-03-07] MEDS ORDERED: Propofol 10mg/ml 20ml IV ONE (08:00)
--- NOTE | 2017-03-07 08:24 | Endoscopy Procedure Note ---
Endoscopy Procedure Note Indication for Procedure: gib Procedures Performed: EGD Operative Findings/Diagnosis: gastritis Specimen: yes Pt Tolerated Procedure Well: Yes Estimated Blood Loss: none Anesthesiologist: yoselin Anesthesia: MAC Implant(s) used?: No 50 yrs or older w/o bx or poly: Not Applicable 10yrs. F/U not recommended: Not Applicable ANGÉLICA DANIELS Mar 07, 2017 08:24
--- NOTE | 2017-03-07 08:44 | Anethesia Preoperative Eval ---
Anesthesia Pre-op PMH/ROS General Date of Evaluation: Mar 07, 2017 Time of Evaluation: 07:58 Anesthesiologist: Rachana ASA Score: ASA 3 Mallampati Score Class I : Soft palate, uvula, fauces, pillars visible Class II: Soft palate, uvula, fauces visible Class III: Soft palate, base of uvula visible Class IV: Only hard plate visible Mallampati Classification: Class II Surgeon: Richmond Diagnosis: GI bleed Surgical Procedure: EGD Anesthesia History: none Social History: smoking - h/o Family History: no anesthesia problems Allergies: Coded Allergies: No Known Allergies (Unverified , 09/18/16) Medications: see eMAR Past Medical History Cardiovascular: Reports: HTN, arrhythmia, Denies: CAD, [place], other, valve dz Pulmonary: Denies: COPD, CHAU, asthma, other Gastrointestinal/Genitourinary: Reports: GERD, Denies: CRI, ESRD, other Neurologic/Psychiatric: Reports: CVA - hemiplegia, depression/anxiety, Denies: TIA, dementia, other Endocrine: Denies: DM, hypothyroidism, other, steroids HEENT: Denies: [place] (L), [place] (R), cataract (L), cataract (R), glaucoma, other Hematology/Immune: Reports: anemia - severe GI bleed?, bleeding disorder - on coumadin for h/o DVT, Denies: DVT, other Musculoskeletal/Integumentary: Reports: DJD, Denies: DDD, OA, RA, edema, other PMH Narrative: as above PSxH Narrative: EX lap? abdominal scar present Anesthesia Pre-op Phys. Exam Physician Exam Last Vital Signs Date Time Temp Pulse Resp B/P Pulse Ox O2 Delivery O2 Flow Rate FiO2 03/07/17 08:34 97.5 84 24 180/95 100 Nasal Cannula 3.0 Constitutional: NAD Neurologic: other - unable to obtaine Cardiovascular: RRR Respiratory: CTA Gastrointestinal: other - moderatly distended, good peristalsis Airway Exam Mallampati Score: Class II MO: limited Neck: stiff ROM: limited Teeth: missing Dentures: no lower, no upper Anesthesia Pre-op A/P Labs Hematology Test 03/07/17 04:30 White Blood Count 7.8 K/UL (4.8-10.8) Red Blood Count 3.28 M/UL (4.20-5.40) L Hemoglobin 7.7 G/DL (12.0-16.0) L Hematocrit 25.7 % (37.0-47.0) L Mean Corpuscular Volume 78 FL (80-99) L Mean Corpuscular Hemoglobin 23.3 PG (27.0-31.0) L Mean Corpuscular Hemoglobin Concent 29.8 G/DL (32.0-36.0) L Red Cell Distribution Width 13.9 % (11.6-14.8) Platelet Count 262 K/UL (150-450) Mean Platelet Volume 5.7 FL (6.5-10.1) L Neutrophils (%) (Auto) % (45.0-75.0) Lymphocytes (%) (Auto) % (20.0-45.0) Monocytes (%) (Auto) % (1.0-10.0) Eosinophils (%) (Auto) % (0.0-3.0) Basophils (%) (Auto) % (0.0-2.0) Chemistry Test 03/07/17 04:35 Sodium Level 144 mEQ/L (135-145) Potassium Level 3.8 mEQ/L (3.4-4.9) Chloride Level 115 mEQ/L (98-107) H Carbon Dioxide Level 22 mEQ/L (20-30) Anion Gap 7 (5-15) Blood Urea Nitrogen 7 mg/dL (7-23) Creatinine 0.7 mg/dL (0.5-0.9) Estimat Glomerular Filtration Rate mL/min (>60) Glucose Level 97 mg/dL (74-106) Calcium Level 7.9 mg/dL (8.6-10.2) L Magnesium Level 1.7 mg/dL (1.7-2.5) Troponin I < 0.30 ng/mL (<=0.30) Risk Assessment & Plan Assessment: ASA 3 Plan: MAC Status Change Before Surgery: No Pre-Antibiotics Drug: none KASSY GATES M.D. Mar 07, 2017 08:44
--- NOTE | 2017-03-07 08:46 | Immediate Post-Op Evaluation ---
Immediate Post-Op Evalulation Immediate Post-Op Evalulation Procedure: EGD with Bx Date of Evaluation: Mar 07, 2017 Time of Evaluation: 08:44 IV Fluids: 200 Blood Products: none Estimated Blood Loss: none Urinary Output: none Blood Pressure Systolic: 177 Blood Pressure Diastolic: 91 Pulse Rate: 78 Respiratory Rate: 20 O2 Sat by Pulse Oximetry: 99 Temperature (Fahrenheit): 97.6 Pain Score (1-10): 1 Nausea: No Complications none Patient Status: reacts, patent Hydration Status: adequate KASSY GATES M.D. Mar 07, 2017 08:46
[2017-03-07] MEDS: Carvedilol 12.5mg tab ORAL SCH ×2 (08:57→20:11)
[2017-03-07] MEDS: DULoxetine 30mg cap ORAL SCH (08:58)
--- NOTE | 2017-03-07 11:15 | Procedure Note ---
DATE OF PROCEDURE: 03/07/2017 SURGEON: Los Fragoso M.D. PROCEDURE: Upper endoscopy with biopsy. ANESTHESIA: Per Rian Reich M.D. INSTRUMENT: Olympus adult flexible upper endoscope. INDICATION: Anemia, stool OB positive, and GI bleeding. REASON FOR PROCEDURE: The procedure, risks, benefits, and possible consequences, including hemorrhage, aspiration, perforation and infection, and alternative treatments, were explained to the patient/legal guardian by Dr. Los Fragoso and the patient/legal guardian understood and accepted these risks. PROCEDURE: After informed consent was obtained and the patient was adequately sedated, Olympus upper endoscope was advanced from mouth into the second portion of duodenum and retroflexion was performed in the stomach. The patient had retained solid food material in the stomach. Examination of stomach somewhat limited. At the area of the distal esophagus close to the GE junction there was evidence of narrowing of the lumen without any obvious mass or ulceration. There was a ring at the GE junction. In the stomach, there was evidence of diffuse gastritis. Random biopsy from antrum of the stomach was obtained to rule out H. pylori infection. There was no evidence of any obvious ulceration, no blood or blood products were seen in the stomach. Then the scope was advanced duodenum and second portion of the duodenum and there was no obvious bleeding or any lesions seen. The patient tolerated the procedure complication. FINDINGS: 1. Distal esophageal narrowing and question of ring at the gastroesophageal junction without any ulceration or mass. 2. Diffuse gastritis, status post biopsy. 3. Some food material in the stomach. 4. Examination of stomach somewhat limited. RECOMMENDATIONS: The patient to get IV iron, another unit of blood transfusion today. The patient to have a colonoscopy tomorrow. I want to thank, Dr. Nicole for this kind referral. Los Fragoso M.D. DR: Susi JOB#: [id number] CC: Otoniel Nicole M.D.; Fax#: [phone]
[2017-03-07] MEDS ORDERED: Bisacodyl EC 5mg tab ORAL ONE (12:00)
--- NOTE | 2017-03-07 12:14 | 48 Hour Post Anesthesia Eval ---
Post Anesthesia Evaluation Procedure: EGD with Bx Date of Evaluation: Mar 07, 2017 Time of Evaluation: 12:13 Blood Pressure Systolic: 158 0: 85 Pulse Rate: 72 Respiratory Rate: 20 Temperature (Fahrenheit): 97.6 O2 Sat by Pulse Oximetry: 98 Airway: patent Nausea: No Vomiting: No Pain Intensity: 2 Hydration Status: adequate Cardiopulmonary Status: stable Mental Status/LOC: patient returned to baseline Follow-up Care/Observations: n/a Post-Anesthesia Complications: none Follow-up care needed: N/A KASSY GATES M.D. Mar 07, 2017 12:14
--- NOTE | 2017-03-07 13:12 | Pulmonology Progress Note ---
Assessment/Plan Problems: (1) Gastrointestinal hemorrhage (2) Anemia (3) Prolonged INR (4) DVT (deep venous thrombosis) (5) History of CVA (cerebrovascular accident) (6) [facility] resident Assessment/Plan NPO IV fluids transfuse prn check h/h EGD showed gastritis, colonoscopy in am prbc, Venofer keep in teli labs in am Subjective ROS Limited/Unobtainable: No Constitutional: Reports: no symptoms HEENT: Repors: no symptoms Respiratory: Reports: no symptoms Cardiovascular: Reports: no symptoms Allergies: Coded Allergies: No Known Allergies (Unverified , 09/18/16) Objective Last 24 Hour Vital Signs Date Time Temp Pulse Resp B/P Pulse Ox O2 Delivery O2 Flow Rate FiO2 03/07/17 12:14 72 20 98 03/07/17 11:40 97.0 78 20 150/74 96 Room Air 03/07/17 08:59 97.8 82 22 185/88 100 Nasal Cannula 3.0 03/07/17 08:46 78 20 99 03/07/17 08:44 76 16 187/90 100 Nasal Cannula 3.0 03/07/17 08:39 78 17 181/92 100 Nasal Cannula 3.0 03/07/17 08:34 97.5 84 24 180/95 100 Nasal Cannula 3.0 03/07/17 07:36 73 03/07/17 07:30 97.0 73 18 140/79 96 Room Air 03/07/17 06:20 175/65 03/07/17 06:00 84 175/65 03/07/17 04:00 98.0 89 20 170/65 99 Room Air 03/07/17 04:00 76 03/07/17 00:00 97.6 87 20 160/65 99 Room Air 03/07/17 00:00 74 03/06/17 20:42 93 140/77 03/06/17 20:00 92 03/06/17 20:00 97.9 93 20 140/77 99 Room Air 03/06/17 16:00 98.0 87 18 143/64 95 Room Air 83 03/06/17 16:00 75 Intake and Output 03/06/17 03/07/17 19:00 07:00 Intake Total 1660 ml 1200 ml Output Total 500 ml 800 ml Balance 1160 ml 400 ml Intake Oral 560 ml IV Total 1100 ml 1200 ml Output Urine Total 500 ml 800 ml # Bowel Movements 1 General Appearance: WD/WN, no acute distress HEENT: normocephalic, atraumatic Respiratory/Chest: chest wall non-tender, lungs clear, normal breath sounds Breasts: no masses Cardiovascular: normal peripheral pulses, regular rhythm Abdomen: normal bowel sounds, soft, non tender Genitourinary: normal external genitalia Extremities: no clubbing Skin: no lesions 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 Complete Laboratory Tests 03/07/17 04:30: White Blood Count 7.8, Red Blood Count 3.28L, Hemoglobin 7.7L, Hematocrit 25.7L , Mean Corpuscular Volume 78L, Mean Corpuscular Hemoglobin 23.3L, Mean Corpuscular Hemoglobin Concent 29.8L, Red Cell Distribution Width 13.9, Platelet Count 262, Mean Platelet Volume 5.7L, Neutrophils (%) (Auto) , Lymphocytes (%) (Auto) , Monocytes (%) (Auto) , Eosinophils (%) (Auto) , Basophils (%) (Auto) 03/07/17 04:35: Sodium Level 144, Potassium Level 3.8, Chloride Level 115H, Carbon Dioxide Level 22, Anion Gap 7, Blood Urea Nitrogen 7, Creatinine 0.7, Estimat Glomerular Filtration Rate , Glucose Level 97, Calcium Level 7.9L, Magnesium Level 1.7, Troponin I < 0.30 Current Medications Medications (Trade) Dose Ordered Sig/Claudia Route PRN Reason Start Time Stop Time Status Last Admin Dose Admin Acetaminophen 650 mg 650 mg Q4H PRN ORAL Mild Pain/Temp > 100.5 03/06/17 14:45 04/05/17 14:44 03/06/17 10:59 Al Hydroxide/Mg Hydroxide (Mylanta II) 30 ml Q6H PRN ORAL dyspepsia 03/05/17 06:45 8/17 06:44 Amlodipine Besylate (Norvasc) 5 mg DAILY PRN ORAL if SBP >155 03/07/17 13:00 04/06/17 12:59 Carvedilol (Coreg) 12.5 mg EVERY 12 HOURS ORAL 03/05/17 09:00 04/04/17 08:59 03/06/17 20:42 Dextrose (Dextrose 50%) STAT PRN IV Hypoglycemia 03/05/17 06:45 04/04/17 06:44 Diphenhydramine HCl (Benadryl) 25 mg Q6H PRN ORAL Itching/Pruritis 03/05/17 06:45 04/04/17 06:44 Duloxetine HCl (Cymbalta) 90 mg DAILY ORAL 03/05/17 09:00 04/04/17 08:59 03/06/17 08:20 Iron Sucrose/ Sodium Chloride (Venofer/Sodium Chloride) 60 ml @ 240 mls/hr BEDTIME IVPB 03/07/17 21:00 03/11/17 21:14 Morphine Sulfate (Morphine Sulfate) 2 mg Q4H PRN IVP severe Pain (Pain Scale 7-10) 03/05/17 06:45 03/12/17 06:44 Nitroglycerin (Ntg) 0.4 mg Q5M X 3 DOSES PRN SL Prn Chest Pain 03/05/17 06:45 04/04/17 06:44 Ondansetron HCl (Zofran) 4 mg Q6H PRN IVP Nausea & Vomiting 03/05/17 06:45 04/04/17 06:44 Pantoprazole (Protonix) 40 mg DAILY ORAL 03/06/17 09:00 04/05/17 08:59 03/06/17 08:20 Polyethylene Glycol (Miralax) 17 gm HSPRN PRN ORAL Constipation 03/05/17 06:45 04/04/17 06:44 Polyethylene Glycol/ Electrolytes (Nulytely) 4,000 ml ONCE ONCE ORAL 03/07/17 14:00 03/07/17 14:01 Temazepam (Restoril) 15 mg HSPRN PRN ORAL Insomnia 03/05/17 06:45 03/12/17 06:44 Trazodone HCl (Desyrel) 150 mg BEDTIME ORAL 03/05/17 21:00 04/04/17 20:59 03/06/17 20:43 MARYAM BATES Mar 07, 2017 13:12
[2017-03-07] MEDS ORDERED: Nulytely 4L ORAL ONE (14:00)
--- NOTE | 2017-03-07 16:00 | Diagnostic Imaging Report ---
Indication: 71-year-old female with chest and abdominal pain, gastrointestinal bleed Technique: Continuous helical transaxial imaging of the chest, abdomen and pelvis was obtained from the lung bases to the pubic symphysis during intravenous contrast administration. Multiple phases of enhancement obtained. Coronal 2-D reformats were also obtained. Study obtained in a Siemens sensation [address] Total Dose length Product (DLP): [address] Dose Index Volume (CTDIvol): 0.2, 8.1, 56.8, 17, 14.6 mGy Comparison: None Findings: CT chest: There is generalized cardiomegaly present. Arterial calcifications are noted in the aorta and coronary arteries. There is no adenopathy. Trace basilar effusions and atelectasis demonstrated. Additional streaky densities could be scarring or atelectasis. There is there are space disease. Small lymph nodes are seen in the axilla bilaterally nonspecific in nature. CT abdomen pelvis: There is thickening of the wall the distal esophagus. There is prominence of the wall of the fundus and body of the stomach. This could very well be a normal finding due to contraction. The stomach is not evaluated well on this exam. There is a right stone in the renal pelvis measuring approximately 12 mm associated with calyceal dilitation and ill-defined stranding likely inflammation. There is a calyceal stone in the upper pole calyx of the right kidney measuring 8 mm. Other smaller stones noted. The proximal and mid right ureter is dilated with a fairly abrupt transition just anterior to the psoas muscle. There is faint intraluminal high attenuation within the proximal dilated segment of the ureter (debris or blood?) but no distinct stone is seen at the transition point (images [id number], series 10). Left kidney and collecting system appear unremarkable. Bladder shows a Christianson catheter in good position. There are cavitations within the uterus consistent with fibroids. The appendix is normal. Diverticula noted throughout the colon without definite evidence of diverticulitis. Bladder is unremarkable. There are old compression fracture deformities of T11, T12, L2 and generalized osteoporosis. There is narrowing of intervertebral discs and accompanying endplate osteophyte formation. Hypertrophied facet joints also demonstrated.. Small fat-containing supraumbilical hernia is noted. Impression: Moderate inflammation with right hydronephrosis with dilatation of the renal pelvis and calyces secondary to calcific debris or blood within the proximal right ureter. Obstructing 12 mm stone also seen within renal pelvis.The hydronephrotic ureter transitions abruptly in the mid ureter level. No stone is seen at this transition. Nonobstructive 8 mm stone in the upper pole calyx of the right kidney and other smaller calyceal stones noted. Atherosclerotic disease Thickening of the distal wall of esophagus. Consider endoscopy Small supraumbilical hernia containing fat. Diverticulosis of the colon Calcified uterine fibroids Christianson catheter in good position Osteoporosis. Old vertebral fractures as described above Apparent thickening of the wall the stomach. This is questionable. Consider endoscopy. Small bilateral renal cysts. The CT scanner at [facility] is accredited by the [employer] and the scans are performed using dose optimization techniques as appropriate to a performed exam including Automatic Exposure control.
[2017-03-07] MEDS ORDERED: D5NS 1000ml IV ONE (18:40)
[2017-03-07] MEDS ORDERED: Tubing IV Secondary IV ONE (18:40)
[2017-03-07] MEDS ORDERED: Sterile Water Irrig 1000ml IRRIG ONE (18:40)
--- NOTE | 2017-03-07 18:49 | Cardiology Progress Note ---
Assessment/Plan Assessment/Plan nsvt gibleed anemia iron def hx of dvt on anti coag electrolyte abn abn ekg htn hydronephrosis repeat torp neg mg adn k supplement prn norvasc gi wells k adn mg supplemeent tele reviwed no vt noted Subjective Cardiovascular: Denies: chest pain, lightheadedness, palpitations Respiratory: Denies: shortness of breath Gastrointestinal/Abdominal: Denies: abdominal pain Genitourinary: Denies: burning Objective Last 24 Hour Vital Signs Date Time Temp Pulse Resp B/P Pulse Ox O2 Delivery O2 Flow Rate FiO2 03/07/17 17:00 84 154/82 03/07/17 16:00 79 03/07/17 15:55 97.7 77 20 160/90 100 Room Air 03/07/17 15:15 97.5 79 154/77 03/07/17 13:25 97.2 70 152/70 03/07/17 13:10 74 151/64 03/07/17 12:14 72 20 98 03/07/17 12:00 79 03/07/17 11:40 97.0 78 20 150/74 96 Room Air 03/07/17 08:59 97.8 82 22 185/88 100 Nasal Cannula 3.0 03/07/17 08:46 78 20 99 03/07/17 08:44 76 16 187/90 100 Nasal Cannula 3.0 03/07/17 08:39 78 17 181/92 100 Nasal Cannula 3.0 03/07/17 08:34 97.5 84 24 180/95 100 Nasal Cannula 3.0 03/07/17 07:36 73 03/07/17 07:30 97.0 73 18 140/79 96 Room Air 03/07/17 06:20 175/65 03/07/17 06:00 84 175/65 03/07/17 04:00 98.0 89 20 170/65 99 Room Air 03/07/17 04:00 76 03/07/17 00:00 97.6 87 20 160/65 99 Room Air 03/07/17 00:00 74 03/06/17 20:42 93 140/77 03/06/17 20:00 92 03/06/17 20:00 97.9 93 20 140/77 99 Room Air General Appearance: no apparent distress, alert Neck: no JVD Cardiovascular: normal rate, regular rhythm Respiratory/Chest: lungs clear, normal breath sounds Abdomen: non tender, soft Extremities: no swelling Intake and Output 03/06/17 03/07/17 19:00 07:00 Intake Total 1660 ml 1200 ml Output Total 500 ml 800 ml Balance 1160 ml 400 ml Intake Oral 560 ml IV Total 1100 ml 1200 ml Output Urine Total 500 ml 800 ml # Bowel Movements 1 Laboratory Tests Test 03/07/17 04:30 03/07/17 04:35 03/07/17 06:35 White Blood Count 7.8 K/UL (4.8-10.8) Red Blood Count 3.28 M/UL (4.20-5.40) L Hemoglobin 7.7 G/DL (12.0-16.0) L Hematocrit 25.7 % (37.0-47.0) L Mean Corpuscular Volume 78 FL (80-99) L Mean Corpuscular Hemoglobin 23.3 PG (27.0-31.0) L Mean Corpuscular Hemoglobin Concent 29.8 G/DL (32.0-36.0) L Red Cell Distribution Width 13.9 % (11.6-14.8) Platelet Count 262 K/UL (150-450) Mean Platelet Volume 5.7 FL (6.5-10.1) L Neutrophils (%) (Auto) % (45.0-75.0) Lymphocytes (%) (Auto) % (20.0-45.0) Monocytes (%) (Auto) % (1.0-10.0) Eosinophils (%) (Auto) % (0.0-3.0) Basophils (%) (Auto) % (0.0-2.0) Sodium Level 144 mEQ/L (135-145) Potassium Level 3.8 mEQ/L (3.4-4.9) Chloride Level 115 mEQ/L (98-107) H Carbon Dioxide Level 22 mEQ/L (20-30) Anion Gap 7 (5-15) Blood Urea Nitrogen 7 mg/dL (7-23) Creatinine 0.7 mg/dL (0.5-0.9) Estimat Glomerular Filtration Rate mL/min (>60) Glucose Level 97 mg/dL (74-106) Calcium Level 7.9 mg/dL (8.6-10.2) L Magnesium Level 1.7 mg/dL (1.7-2.5) Troponin I < 0.30 ng/mL (<=0.30) Ferritin Pending Microbiology Date/Time Source Procedure Growth Status 03/05/17 16:00 Wound Gram Stain - Final Resulted 03/05/17 16:00 Wound Culture - Preliminary Staphylococcus Aureus Resulted 03/05/17 03:17 Nasal Nares MRSA Culture - Final Staphylococcus Aureus - Mrsa Complete 03/05/17 01:35 Urine,Clean Catch Urine Culture - Final Escherichia Coli - Esbl Complete 03/05/17 03:17 Rectum VRE Culture - Final NO VANCOMYCIN RESISTANT ENTEROCOCCUS ... Complete KYE GARCIA Mar 07, 2017 18:49
[2017-03-07] MEDS: TraZODone 100mg tab ORAL SCH (20:11)
[2017-03-07] MEDS: Iron Sucrose 100 MG in NS 55 ML IVPB SCH (21:28)
[2017-03-08] VITALS (11 sets, daily range): BP systolic 142–192; BP diastolic 72–88
--- NOTE | 2017-03-08 00:41 | Wound Care Consultation ---
Wound Assessment Wound Assessment : Wound Present on Admission: Yes New Wound: No Status Change of Wound: No Wound Location Body Site Modif: left, anterior Wound Location Body Site: hand Wound Type: lesion-etiology unknown Vesna Test: Does not Vesna Wound Thickness: Full Thickness Wound Length: 2.0 Wound Width: 1.0 Wound Depth: 0.3 Percent of Wound [place]al[place]/Red: 100 Wound Drainage Description: Serosanguineous Wound Drainage Amount: Moderate Wound Drainage Odor: None/Absent Tissue Surrounding Wound: Indurated Wound General Appearance: Reddened, Draining Wound Comment #1 Left anterior hand open wound etiology unknown Recommendation -Cleanse with saline, pat dry, apply Xeroform drg, cover with Biatain silicone drg every other day and PRN soiled/dislodged -Keep clean and dry -Optimize nutrition -Assess and f/u accordingly for any changes TRACEY MARES RN Mar 08, 2017 00:41
--- NOTE | 2017-03-08 01:45 | Consultation ---
DATE OF CONSULTATION: 03/07/2017 HEMATOLOGY/ONCOLOGY CONSULTATION CONSULTING PHYSICIAN: Kane Hughes M.D. REQUESTING PHYSICIAN: Otoniel Nicole M.D. REASON FOR CONSULTATION: Evaluation of anemia, microcytosis, and leukocytosis. IDENTIFICATION DATA: Dear Dr. Otoniel Nicole, Thank you for this kind referral. The patient is a pleasant 71-year-old female with a past medical history significant for DVT on Coumadin , history of CVA, a [facility] resident presented with GI versus vaginal bleed. She has been passing some bright red blood. Denies any other symptoms at this time, had an EGD performed today. Results are still pending. She was noted to be anemic with hemoglobin is 7.7. Hematology service was consulted given history of DVT and anemia. PAST MEDICAL HISTORY: History of DVT, history of stroke, prior episodes of sepsis, hemiplegia, and depression. MEDICATIONS: Lipitor, calcium, Coreg, multivitamins, Coumadin. ALLERGIES: No known drug allergies. SOCIAL HISTORY: None reported. REVIEW OF SYSTEMS: Constitutional: No fever, no chills, and no night sweats. Skin: No rashes, bumps, or itching. HEENT: No headache, hearing, or vision changes. Breasts: No lumps, pain, or discharge. Pulmonary: No cough, sputum, or shortness of breath. Cardiovascular: No chest pain, tightness, or palpitations. Gastrointestinal: No nausea or vomiting, however, does have GI bleed. PHYSICAL EXAMINATION: GENERAL: The patient is in no distress. VITAL SIGNS: Temperature 98 degrees Fahrenheit, pulse 62, blood pressure 131/70, respiratory rate 12, and O2 saturation 100% on room air. PULMONARY: Decreased breath sounds. CARDIOVASCULAR: Regular rate. No S3 or S4. ABDOMEN: Soft, nontender and nondistended. EXTREMITIES: There is 1+ edema. LABORATORY DATA: WBC 7.8, hemoglobin 7.7, hematocrit 26, and platelet count 262,000. INR 1. BUN of 10 and creatinine 0.8. Occult blood is positive. ASSESSMENT: 1. Anemia secondary to gastrointestinal bleed. Esophagogastroduodenoscopy performed, results are pending. 2. History of deep venous thrombosis, on Coumadin. Coumadin has been currently discontinued. At this point, recommend to obtain a duplex of the lower extremity and results are still pending. Prior deep venous thrombosis diagnosed in September of this year. 3. Failure to thrive. A CAT scan of the chest, abdomen, and pelvis ordered, which shows moderate inflammation, right hydronephrosis, diverticulitis, Christianson catheter in good position, and osteoporosis. 4. Osteoporosis. 5. Coagulopathy secondary to Coumadin, improved. 6. Anemia secondary to chronic disease. 7. Hypocalcemia. 8. Leukocytosis, improved. 9. Discussed with staff. 10. I greatly appreciate this consultation. Kane Hughes M.D. DR: WILBUR JOB#: [id number] CC:
[2017-03-08] MEDS ORDERED: Magnesium Citrate Liq Btl ORAL ONE (07:30)
[2017-03-08 07:49] LABS: BASOPHILS % (AUTO) 0.6 % (0.0-2.0); EOSINOPHILS % (AUTO) 3.6 % (0.0-3.0); LYMPHOCYTES % (AUTO) 25.4 % (20.0-45.0); MEAN CORPUSCULAR HEMOGLOBIN 24.7 PG (27.0-31.0); MEAN CORPUSCULAR HGB CONC 30.8 G/DL (32.0-36.0); MEAN CORPUSCULAR VOLUME 80 FL (80-99); MEAN PLATELET VOLUME 6.5 FL (6.5-10.1); MONOCYTES % (AUTO) 10.1 % (1.0-10.0); NEUTROPHILS % (AUTO) 60.4 % (45.0-75.0); PLATELET COUNT 294 K/UL (150-450); RED BLOOD COUNT 3.96 M/UL (4.20-5.40); RED CELL DISTRIBUTION WIDTH 13.6 % (11.6-14.8); WHITE BLOOD COUNT 9.9 K/UL (4.8-10.8)
[2017-03-08 07:57] LABS: PROTHROMBIN TIME 10.1 SEC (9.30-11.50)
[2017-03-08] MEDS ORDERED: LR 1000ml ONE (08:00)
[2017-03-08] MEDS ORDERED: Labetalol 5mg/ml 20ml vial IV ONE (08:00)
[2017-03-08] MEDS ORDERED: Propofol 10mg/ml 20ml IV ONE (08:00)
[2017-03-08 08:04] LABS: ALANINE AMINOTRANSFERASE 8 U/L (3-33); ALBUMIN/GLOBULIN RATIO 0.8 (1.0-2.7); ANION GAP 8 (5-15); ASPARTATE AMINO TRANSFERASE 16 U/L (5-40); CALCIUM 8.8 mg/dL (8.6-10.2); CARBON DIOXIDE 23 mEQ/L (20-30); CHLORIDE 107 mEQ/L (98-107); CREATININE 0.7 mg/dL (0.5-0.9); HEMOLYSIS 0; MAGNESIUM 2.3 mg/dL (1.7-2.5); PHOSPHORUS 1.5 mg/dL (2.5-4.8); POTASSIUM 4.1 mEQ/L (3.4-4.9); SODIUM 138 mEQ/L (135-145); TOTAL PROTEIN 7.4 g/dL (6.6-8.7)
--- NOTE | 2017-03-08 08:15 | Cardiology Report ---
APPROVED REPORT EKG Measurement Heart [id number] Normal sinus rhythm T wave abnormality, consider inferior ischemia T wave abnormality, consider anterolateral ischemia Prolonged QT Abnormal ECG
[2017-03-08] MEDS: Carvedilol 12.5mg tab ORAL SCH ×2 (08:49→20:59)
[2017-03-08] MEDS: DULoxetine 30mg cap ORAL SCH (08:50)
--- NOTE | 2017-03-08 11:12 | Wound Care Consultation ---
Wound Assessment Wound Assessment #1: Wound Number: #1 Wound Present on Admission: No New Wound: Yes Status Change of Wound: No Wound Location Body Site: abdominal fold Wound Type: rash - intertrigo Vesna Test: Does not Vesna Wound Thickness: Partial Thickness Percent of Wound Ringo/Red: 100 - scattered on abd. fold Wound Drainage Description: Serous Wound Drainage Amount: Scant Wound Drainage Odor: None/Absent Tissue Surrounding Wound: Macerated Wound General Appearance: Reddened, Open to air Wound Assessment #2: Wound Number: #2 Wound Present on Admission: No New Wound: Yes Status Change of Wound: No Wound Location Body Site Modif: posterior Wound Location Body Site: back Wound Type: other - self inflicted scratches. scattered Vesna Test: Does not Vesna Wound Thickness: Partial Thickness Wound Length: 18.0 Wound Width: 18.0 Percent of Wound Ringo/Red: 100 - scattered Wound Drainage Amount: None Wound Drainage Odor: None/Absent Tissue Surrounding Wound: Erythemic - dry scaly skin present. Wound General Appearance: Reddened, Open to air Wound Comment #1 Abdominal fold intertrigo rash. #2 Self inflicted scratches to posterior back. Recommendation. - Local wound care as ordered. -ABD.FOLD - keep clean and dry. -Posteror back self inflicted scratches.- keep clean and moisturized. -Turn and reposition. -Offload affected site. -Assess and notify MD for any further change of condition to skin noted. JUANITA DEVLIN Mar 08, 2017 11:12
--- NOTE | 2017-03-08 11:47 | Anethesia Preoperative Eval ---
Anesthesia Pre-op PMH/ROS General Date of Evaluation: Mar 08, 2017 Mallampati Score Class I : Soft palate, uvula, fauces, pillars visible Class II: Soft palate, uvula, fauces visible Class III: Soft palate, base of uvula visible Class IV: Only hard plate visible Mallampati Classification: Class II Allergies: Coded Allergies: No Known Allergies (Unverified , 09/18/16) Anesthesia Pre-op Phys. Exam Physician Exam Last Vital Signs Date Time Temp Pulse Resp B/P Pulse Ox O2 Delivery O2 Flow Rate FiO2 03/08/17 08:49 95 156/72 03/08/17 08:00 97.6 21 96 Room Air 03/08/17 04:00 3.0 Airway Exam Mallampati Score: Class II Anesthesia Pre-op A/P Labs Hematology Test 03/08/17 07:05 White Blood Count 9.9 K/UL (4.8-10.8) Red Blood Count 3.96 M/UL (4.20-5.40) L Hemoglobin 9.8 G/DL (12.0-16.0) L Hematocrit 31.7 % (37.0-47.0) L Mean Corpuscular Volume 80 FL (80-99) Mean Corpuscular Hemoglobin 24.7 PG (27.0-31.0) L Mean Corpuscular Hemoglobin Concent 30.8 G/DL (32.0-36.0) L Red Cell Distribution Width 13.6 % (11.6-14.8) Platelet Count 294 K/UL (150-450) Mean Platelet Volume 6.5 FL (6.5-10.1) Neutrophils (%) (Auto) 60.4 % (45.0-75.0) Lymphocytes (%) (Auto) 25.4 % (20.0-45.0) Monocytes (%) (Auto) 10.1 % (1.0-10.0) H Eosinophils (%) (Auto) 3.6 % (0.0-3.0) H Basophils (%) (Auto) 0.6 % (0.0-2.0) Coagulation Test 03/08/17 07:05 Prothrombin Time 10.1 SEC (9.30-11.50) Prothromb Time International Ratio 1.0 (0.9-1.1) Activated Partial Thromboplast Time 28 SEC (23-33) Chemistry Test 03/08/17 07:05 Sodium Level 138 mEQ/L (135-145) Potassium Level 4.1 mEQ/L (3.4-4.9) Chloride Level 107 mEQ/L (98-107) Carbon Dioxide Level 23 mEQ/L (20-30) Anion Gap 8 (5-15) Blood Urea Nitrogen 4 mg/dL (7-23) L Creatinine 0.7 mg/dL (0.5-0.9) Estimat Glomerular Filtration Rate mL/min (>60) Glucose Level 84 mg/dL (74-106) Calcium Level 8.8 mg/dL (8.6-10.2) Phosphorus Level 1.5 mg/dL (2.5-4.8) L Magnesium Level 2.3 mg/dL (1.7-2.5) Total Bilirubin 0.3 mg/dL (0.0-1.2) Aspartate Amino Transf (AST/SGOT) 16 U/L (5-40) Alanine Aminotransferase (ALT/SGPT) 8 U/L (3-33) Alkaline Phosphatase 46 U/L (35-104) Total Protein 7.4 g/dL (6.6-8.7) Albumin 3.4 g/dL (3.5-5.2) L Globulin 4.0 g/dL Albumin/Globulin Ratio 0.8 (1.0-2.7) PRASANTH GARCIA M.D. Mar 08, 2017 11:47
[2017-03-08] MEDS ORDERED: NS 550ML IV ONE (12:05)
--- NOTE | 2017-03-08 12:29 | Anethesia Preoperative Eval ---
Anesthesia Pre-op PMH/ROS General Date of Evaluation: Mar 08, 2017 Time of Evaluation: 12:01 Anesthesiologist: Rachana ASA Score: ASA 3 Mallampati Score Class I : Soft palate, uvula, fauces, pillars visible Class II: Soft palate, uvula, fauces visible Class III: Soft palate, base of uvula visible Class IV: Only hard plate visible Mallampati Classification: Class II Surgeon: [place] Diagnosis: GI bleed Surgical Procedure: Colonocopy Anesthesia History: none Family History: no anesthesia problems Allergies: Coded Allergies: No Known Allergies (Unverified , 09/18/16) Medications: see eMAR Past Medical History Cardiovascular: Reports: HTN, Denies: CAD, IA, arrhythmia, other, valve dz Pulmonary: Denies: COPD, CHAU, asthma, other Gastrointestinal/Genitourinary: Reports: GERD, Denies: CRI, ESRD, other Neurologic/Psychiatric: Reports: CVA, depression/anxiety, Denies: TIA, dementia, other HEENT: Denies: [place] (L), [place] (R), cataract (L), cataract (R), glaucoma, other Hematology/Immune: Reports: anemia, Denies: DVT, bleeding disorder, other Musculoskeletal/Integumentary: Reports: DJD PMH Narrative: as above PSxH Narrative: se chart Anesthesia Pre-op Phys. Exam Physician Exam Last Vital Signs Date Time Temp Pulse Resp B/P Pulse Ox O2 Delivery O2 Flow Rate FiO2 03/08/17 08:49 95 156/72 03/08/17 08:00 97.6 21 96 Room Air 03/08/17 04:00 3.0 Constitutional: NAD Neurologic: other - unable to obtaine Cardiovascular: RRR, no M/R/G Respiratory: CTA Gastrointestinal: S/NT/ND Airway Exam Mallampati Score: Class II MO: limited Neck: stiff ROM: limited Teeth: missing Dentures: no lower, no upper Anesthesia Pre-op A/P Labs Hematology Test 03/08/17 07:05 White Blood Count 9.9 K/UL (4.8-10.8) Red Blood Count 3.96 M/UL (4.20-5.40) L Hemoglobin 9.8 G/DL (12.0-16.0) L Hematocrit 31.7 % (37.0-47.0) L Mean Corpuscular Volume 80 FL (80-99) Mean Corpuscular Hemoglobin 24.7 PG (27.0-31.0) L Mean Corpuscular Hemoglobin Concent 30.8 G/DL (32.0-36.0) L Red Cell Distribution Width 13.6 % (11.6-14.8) Platelet Count 294 K/UL (150-450) Mean Platelet Volume 6.5 FL (6.5-10.1) Neutrophils (%) (Auto) 60.4 % (45.0-75.0) Lymphocytes (%) (Auto) 25.4 % (20.0-45.0) Monocytes (%) (Auto) 10.1 % (1.0-10.0) H Eosinophils (%) (Auto) 3.6 % (0.0-3.0) H Basophils (%) (Auto) 0.6 % (0.0-2.0) Coagulation Test 03/08/17 07:05 Prothrombin Time 10.1 SEC (9.30-11.50) Prothromb Time International Ratio 1.0 (0.9-1.1) Activated Partial Thromboplast Time 28 SEC (23-33) Chemistry Test 03/08/17 07:05 Sodium Level 138 mEQ/L (135-145) Potassium Level 4.1 mEQ/L (3.4-4.9) Chloride Level 107 mEQ/L (98-107) Carbon Dioxide Level 23 mEQ/L (20-30) Anion Gap 8 (5-15) Blood Urea Nitrogen 4 mg/dL (7-23) L Creatinine 0.7 mg/dL (0.5-0.9) Estimat Glomerular Filtration Rate mL/min (>60) Glucose Level 84 mg/dL (74-106) Calcium Level 8.8 mg/dL (8.6-10.2) Phosphorus Level 1.5 mg/dL (2.5-4.8) L Magnesium Level 2.3 mg/dL (1.7-2.5) Total Bilirubin 0.3 mg/dL (0.0-1.2) Aspartate Amino Transf (AST/SGOT) 16 U/L (5-40) Alanine Aminotransferase (ALT/SGPT) 8 U/L (3-33) Alkaline Phosphatase 46 U/L (35-104) Total Protein 7.4 g/dL (6.6-8.7) Albumin 3.4 g/dL (3.5-5.2) L Globulin 4.0 g/dL Albumin/Globulin Ratio 0.8 (1.0-2.7) L Risk Assessment & Plan Assessment: ASA 3 Plan: MAC Pre-Antibiotics Drug: none KASSY GATES M.D. Mar 08, 2017 12:29
--- NOTE | 2017-03-08 12:30 | Endoscopy Procedure Note ---
Endoscopy Procedure Note Indication for Procedure: gib Procedures Performed: colonoscopy Operative Findings/Diagnosis: diverticulosis Specimen: none Pt Tolerated Procedure Well: Yes Estimated Blood Loss: none Anesthesiologist: yoselin Anesthesia: MAC Implant(s) used?: No 50 yrs or older w/o bx or poly: Not Applicable 10yrs. F/U not recommended: Not Applicable ANGÉLICA DANIELS Mar 08, 2017 12:30
--- NOTE | 2017-03-08 12:33 | Pre-Procedure Note/Attestation ---
Pre-Procedure Note/Attestation Complete Prior to Procedure Planned Procedure: not applicable Procedure Narrative: colonoscopy Indications for Procedure Pre-Operative Diagnosis: anemia, GIB Attestation I attest that I discussed the nature of the procedure; its benefits; risks and complications; and alternatives (and the risks and benefits of such alternatives ), prior to the procedure, with the patient (or the patient's legal bilingual sales representative). I attest that, if there was a reasonable possibility of needing a blood transfusion, the patient (or the patient's legal bilingual sales representative) was given the [facility] standardized written summary, pursuant to the Bill [place] Blood Safety Act ([place] Health and Safety Code # 1645, as amended). I attest that I re-evaluated the patient just prior to the surgery and that there has been no change in the patient's H&P, except as documented below: ANGÉLICA DANIELS Mar 08, 2017 12:33
--- NOTE | 2017-03-08 13:14 | Immediate Post-Op Evaluation ---
Immediate Post-Op Evalulation Immediate Post-Op Evalulation Procedure: Colonoscopy Date of Evaluation: Mar 08, 2017 Time of Evaluation: 12:38 IV Fluids: 100 Blood Products: none Estimated Blood Loss: none Urinary Output: none Blood Pressure Systolic: 168 Blood Pressure Diastolic: 82 Pulse Rate: 74 Respiratory Rate: 20 O2 Sat by Pulse Oximetry: 99 Temperature (Fahrenheit): 07.8 Pain Score (1-10): 2 Nausea: No Vomiting: No Complications none Patient Status: awake, patent, none Hydration Status: adequate KASSY GATES M.D. Mar 08, 2017 13:14
--- NOTE | 2017-03-08 13:40 | Pulmonology Progress Note ---
Assessment/Plan Problems: (1) Gastrointestinal hemorrhage (2) Anemia (3) Prolonged INR (4) DVT (deep venous thrombosis) (5) History of CVA (cerebrovascular accident) (6) [facility] resident Assessment/Plan endoscopy was negativ pt has DVt needs IVC filter IV fluids transfuse prn check h/h prbc, Venofer labs in am dc to [facility] after IVC Subjective ROS Limited/Unobtainable: No Constitutional: Reports: no symptoms HEENT: Repors: no symptoms Respiratory: Reports: no symptoms Allergies: Coded Allergies: No Known Allergies (Unverified , 09/18/16) Objective Last 24 Hour Vital Signs Date Time Temp Pulse Resp B/P Pulse Ox O2 Delivery O2 Flow Rate FiO2 03/08/17 13:14 74 20 99 03/08/17 12:53 98.0 80 20 165/88 98 Room Air 03/08/17 12:44 85 20 144/84 100 Room Air 03/08/17 12:39 85 20 147/74 100 Nasal Cannula 2.0 03/08/17 12:34 97.5 88 20 147/74 100 Nasal Cannula 2.0 03/08/17 12:00 97.9 90 21 142/81 97 Room Air 03/08/17 08:49 95 156/72 03/08/17 08:00 97.6 95 21 156/72 96 Room Air 03/08/17 08:00 94 03/08/17 04:00 92 03/08/17 04:00 98.2 84 20 174/78 95 Room Air 3.0 03/08/17 03:44 84 184/91 03/08/17 00:00 70 03/08/17 00:00 98.2 97 20 165/83 95 Room Air 3.0 03/07/17 21:00 87 150/78 03/07/17 20:11 100 202/99 03/07/17 20:00 73 03/07/17 20:00 98.2 91 20 187/88 100 Room Air 3.0 03/07/17 17:00 84 154/82 03/07/17 16:00 79 03/07/17 15:55 97.7 77 20 160/90 100 Room Air 03/07/17 15:15 97.5 79 154/77 Intake and Output 03/07/17 03/08/17 19:00 07:00 Intake Total 300 ml 420 ml Output Total 1400 ml 2000 ml Balance -1100 ml -1580 ml IV Total 300 ml Other 420 ml Output Urine Total 1400 ml 2000 ml # Bowel Movements 1 2 General Appearance: WD/WN HEENT: normocephalic, atraumatic Respiratory/Chest: chest wall non-tender, lungs clear Cardiovascular: normal peripheral pulses, normal rate Abdomen: normal bowel sounds, soft, non tender Genitourinary: normal external genitalia Extremities: no clubbing Skin: no rash 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 II-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 grossly normal Microbiology Date/Time Source Procedure Growth Status 03/05/17 16:00 Wound Gram Stain - Final Resulted 03/05/17 16:00 Wound Culture - Preliminary Staphylococcus Aureus - Mrsa Resulted Laboratory Tests 03/08/17 07:05: White Blood Count 9.9, Red Blood Count 3.96L, Hemoglobin 9.8L, Hematocrit 31.7L , Mean Corpuscular Volume 80, Mean Corpuscular Hemoglobin 24.7L, Mean Corpuscular Hemoglobin Concent 30.8L, Red Cell Distribution Width 13.6, Platelet Count 294, Mean Platelet Volume 6.5, Neutrophils (%) (Auto) 60.4, Lymphocytes (%) (Auto) 25.4, Monocytes (%) (Auto) 10.1H, Eosinophils (%) (Auto) 3.6H, Basophils (%) (Auto) 0.6, Prothrombin Time 10.1, Prothromb Time International Ratio 1.0, Activated Partial Thromboplast Time 28, Sodium Level 138, Potassium Level 4.1, Chloride Level 107, Carbon Dioxide Level 23, Anion Gap 8, Blood Urea Nitrogen 4L, Creatinine 0.7, Estimat Glomerular Filtration Rate , Glucose Level 84, Calcium Level 8.8, Phosphorus Level 1.5L, Magnesium Level 2.3, Total Bilirubin 0.3, Aspartate Amino Transf (AST/SGOT) 16, Alanine Aminotransferase (ALT/SGPT) 8, Alkaline Phosphatase 46, Total Protein 7.4, Albumin 3.4L, Globulin 4.0, Albumin/Globulin Ratio 0.8L Current Medications Medications (Trade) Dose Ordered Sig/Claudia Route PRN Reason Start Time Stop Time Status Last Admin Dose Admin Acetaminophen 650 mg 650 mg Q4H PRN ORAL Mild Pain/Temp > 100.5 03/06/17 14:45 04/05/17 14:44 03/08/17 06:50 Al Hydroxide/Mg Hydroxide (Mylanta II) 30 ml Q6H PRN ORAL dyspepsia 03/05/17 06:45 04/04/17 06:44 Amlodipine Besylate (Norvasc) 5 mg DAILY PRN ORAL if SBP >155 03/07/17 13:00 04/06/17 12:59 03/08/17 03:44 Carvedilol (Coreg) 12.5 mg EVERY 12 HOURS ORAL 03/05/17 09:00 04/04/17 08:59 03/08/17 08:49 Dextrose (Dextrose 50%) STAT PRN IV Hypoglycemia 03/05/17 06:45 04/04/17 06:44 Diphenhydramine HCl (Benadryl) 25 mg Q6H PRN ORAL Itching/Pruritis 03/05/17 06:45 04/04/17 06:44 Duloxetine HCl (Cymbalta) 90 mg DAILY ORAL 03/05/17 09:00 04/04/17 08:59 03/08/17 08:50 Iron Sucrose/ Sodium Chloride (Venofer/Sodium Chloride) 60 ml @ 240 mls/hr BEDTIME IVPB 03/07/17 21:00 03/11/17 21:14 03/07/17 21:28 Morphine Sulfate (Morphine Sulfate) 2 mg Q4H PRN IVP severe Pain (Pain Scale 7-10) 03/05/17 06:45 03/12/17 06:44 Nitroglycerin (Ntg) 0.4 mg Q5M X 3 DOSES PRN SL Prn Chest Pain 03/05/17 06:45 04/04/17 06:44 Nystatin (Nystop Powder) 1 applic THREE TIMES A DAY TOPIC 03/08/17 13:00 04/07/17 12:59 Ondansetron HCl (Zofran) 4 mg Q6H PRN IVP Nausea & Vomiting 03/05/17 06:45 04/04/17 06:44 Pantoprazole (Protonix) 40 mg ACBREAKFAST ORAL 03/09/17 06:30 04/05/17 08:59 Polyethylene Glycol (Miralax) 17 gm HSPRN PRN ORAL Constipation 03/05/17 06:45 04/04/17 06:44 Temazepam (Restoril) 15 mg HSPRN PRN ORAL Insomnia 03/05/17 06:45 03/12/17 06:44 Trazodone HCl (Desyrel) 150 mg BEDTIME ORAL 03/05/17 21:00 04/04/17 20:59 03/07/17 20:11 Vitamin A/Vitamin D (A & D Oint) 1 applic EVERY 12 HOURS TOPIC 03/08/17 13:00 04/07/17 12:59 MARYAM BATES Mar 08, 2017 13:40
[2017-03-08] MEDS: Vitamin A&D Oint 2oz Tube TOPIC SCH ×2 (14:13→21:00)
[2017-03-08] MEDS: Nystatin Powder 100,000 units/gm 15gm TOPIC SCH ×2 (14:13→17:48)
--- NOTE | 2017-03-08 15:38 | Diagnostic Imaging Report ---
Indication: Abdominal pain Comparison: 03/05/17 Single view of the abdomen obtained Extensive vascular calcifications are present. Christianson catheter noted. Bones are moderately osteopenic. Degenerative changes of lumbar spine are noted. Bowel gas pattern is nonspecific. Impression: No acute findings
--- NOTE | 2017-03-08 16:15 | Procedure Note ---
DATE OF PROCEDURE: 03/08/2017 SURGEON: Los Fragoso M.D. PROCEDURE: Colonoscopy. ANESTHESIA: Per Dr. Reich. INSTRUMENT: Olympus adult flexible colonoscope. REFERRING PHYSICIAN: Otoniel Nicole M.D. INDICATION: Anemia and gastrointestinal bleeding. The procedure, risks, benefits, and possible consequences, including hemorrhage, aspiration, perforation and infection, and alternative treatments, were explained to the patient/legal guardian by Dr. Los Fragoso and the patient/legal guardian understood and accepted these risks. DESCRIPTION OF PROCEDURE: After informed consent was obtained and the patient was adequately sedated, first rectal exam was performed, which was positive for external and internal hemorrhoids. Then, the scope was advanced from rectum into the cecum, documented by appendiceal orifice, ileocecal valve, and right upper quadrant palpation. Quality of preparation was good. The patient has evidence of diverticulosis both in the right and left colon, more prominent in the left colon. No obvious mass, polyp, or source of bleeding was seen. Retroflexion of rectum showed evidence of internal hemorrhoids. SUMMARY OF FINDINGS: 1. Diverticulosis. 2. Internal and external hemorrhoids. RECOMMENDATIONS: Resume diet. Most probably, the patient bled from diverticular flaring. At this time, there is no recurrent bleeding. So, we are going to advance diet. I want to thank Dr. Nicole for this kind referral. Los Fragoso M.D. DR: NIRMAL JOB#: [id number] CC: Otoniel Nicole M.D.; Fax#: [phone]
--- NOTE | 2017-03-08 17:20 | Cardiology Progress Note ---
Assessment/Plan Assessment/Plan nsvt gibleed diverticular anemia s/p prbc tx iron def hx of dvt on anti coag electrolyte abn abn ekg htn hydronephrosis repeat torp neg mg adn k supplement norvasc gi wells k adn mg supplemeent corrected deficit yest tele reviwed no vt noted Subjective Cardiovascular: Denies: chest pain, irregular heart rate, lightheadedness Respiratory: Denies: shortness of breath Gastrointestinal/Abdominal: Denies: abdominal pain Genitourinary: Denies: burning Objective Last 24 Hour Vital Signs Date Time Temp Pulse Resp B/P Pulse Ox O2 Delivery O2 Flow Rate FiO2 03/08/17 13:14 74 20 99 03/08/17 12:53 98.0 80 20 165/88 98 Room Air 03/08/17 12:44 85 20 144/84 100 Room Air 03/08/17 12:39 85 20 147/74 100 Nasal Cannula 2.0 03/08/17 12:34 97.5 88 20 147/74 100 Nasal Cannula 2.0 03/08/17 12:00 97.9 90 21 142/81 97 Room Air 03/08/17 08:49 95 156/72 03/08/17 08:00 97.6 95 21 156/72 96 Room Air 03/08/17 08:00 94 03/08/17 04:00 92 03/08/17 04:00 98.2 84 20 174/78 95 Room Air 3.0 03/08/17 03:44 84 184/91 03/08/17 00:00 70 03/08/17 00:00 98.2 97 20 165/83 95 Room Air 3.0 03/07/17 21:00 87 150/78 03/07/17 20:11 100 202/99 03/07/17 20:00 73 03/07/17 20:00 98.2 91 20 187/88 100 Room Air 3.0 General Appearance: no apparent distress, alert Neck: supple Cardiovascular: normal rate, regular rhythm Respiratory/Chest: lungs clear, normal breath sounds Abdomen: normal bowel sounds, non tender, soft Extremities: no swelling Intake and Output 03/07/17 03/08/17 19:00 07:00 Intake Total 300 ml 420 ml Output Total 1400 ml 2000 ml Balance -1100 ml -1580 ml IV Total 300 ml Other 420 ml Output Urine Total 1400 ml 2000 ml # Bowel Movements 1 2 Laboratory Tests Test 03/08/17 07:05 White Blood Count 9.9 K/UL (4.8-10.8) Red Blood Count 3.96 M/UL (4.20-5.40) L Hemoglobin 9.8 G/DL (12.0-16.0) L Hematocrit 31.7 % (37.0-47.0) L Mean Corpuscular Volume 80 FL (80-99) Mean Corpuscular Hemoglobin 24.7 PG (27.0-31.0) L Mean Corpuscular Hemoglobin Concent 30.8 G/DL (32.0-36.0) L Red Cell Distribution Width 13.6 % (11.6-14.8) Platelet Count 294 K/UL (150-450) Mean Platelet Volume 6.5 FL (6.5-10.1) Neutrophils (%) (Auto) 60.4 % (45.0-75.0) Lymphocytes (%) (Auto) 25.4 % (20.0-45.0) Monocytes (%) (Auto) 10.1 % (1.0-10.0) H Eosinophils (%) (Auto) 3.6 % (0.0-3.0) H Basophils (%) (Auto) 0.6 % (0.0-2.0) Prothrombin Time 10.1 SEC (9.30-11.50) Prothromb Time International Ratio 1.0 (0.9-1.1) Activated Partial Thromboplast Time 28 SEC (23-33) Sodium Level 138 mEQ/L (135-145) Potassium Level 4.1 mEQ/L (3.4-4.9) Chloride Level 107 mEQ/L (98-107) Carbon Dioxide Level 23 mEQ/L (20-30) Anion Gap 8 (5-15) Blood Urea Nitrogen 4 mg/dL (7-23) L Creatinine 0.7 mg/dL (0.5-0.9) Estimat Glomerular Filtration Rate mL/min (>60) Glucose Level 84 mg/dL (74-106) Calcium Level 8.8 mg/dL (8.6-10.2) Phosphorus Level 1.5 mg/dL (2.5-4.8) L Magnesium Level 2.3 mg/dL (1.7-2.5) Total Bilirubin 0.3 mg/dL (0.0-1.2) Aspartate Amino Transf (AST/SGOT) 16 U/L (5-40) Alanine Aminotransferase (ALT/SGPT) 8 U/L (3-33) Alkaline Phosphatase 46 U/L (35-104) Total Protein 7.4 g/dL (6.6-8.7) Albumin 3.4 g/dL (3.5-5.2) L Globulin 4.0 g/dL Albumin/Globulin Ratio 0.8 (1.0-2.7) L KYE GARCIA Mar 08, 2017 17:20
[2017-03-08] MEDS: TraZODone 100mg tab ORAL SCH (20:59)
[2017-03-08] MEDS: Iron Sucrose 100 MG in NS 55 ML IVPB SCH (20:59)
--- NOTE | 2017-03-08 22:22 | General Progress Note ---
Assessment/Plan Assessment/Plan 1. Anemia secondary to gastrointestinal bleed. Esophagogastroduodenoscopy performed. ---> showed diverticulosis, probable bleeding from diverticular flaring. No recurrent bleeding 2. R Deep venous thrombosis of the superficial femoral vein, on Coumadin. Coumadin has been currently discontinued. At this point, recommend to obtain a duplex of the lower extremity and results are still pending. Prior deep venous thrombosis diagnosed in September of this year. ---> Recommend IVC filter. 3. Failure to thrive. A CAT scan of the chest, abdomen, and pelvis ordered, which shows moderate inflammation, right hydronephrosis, diverticulitis, Christianson catheter in good position, and osteoporosis. 4. Osteoporosis. 5. Coagulopathy secondary to Coumadin, improved. 6. Anemia secondary to chronic disease. 7. Hypocalcemia. 8. Leukocytosis, improved. 9. Discussed with staff. 10. I greatly appreciate this consultation. Subjective Constitutional: Reports: no symptoms HEENT: Reports: no symptoms Cardiovascular: Reports: no symptoms Respiratory: Reports: no symptoms Gastrointestinal/Abdominal: Reports: no symptoms Genitourinary: Reports: no symptoms Neurologic/Psychiatric: Reports: no symptoms Allergies: Coded Allergies: No Known Allergies (Unverified , 09/18/16) Subjective s/p colonoscopy, needs ivc Objective Last 24 Hour Vital Signs Date Time Temp Pulse Resp B/P Pulse Ox O2 Delivery O2 Flow Rate FiO2 03/08/17 20:59 98 158/85 03/08/17 19:58 98.1 98 19 158/85 95 Room Air 03/08/17 16:00 75 03/08/17 16:00 97.9 85 20 149/72 96 Room Air 03/08/17 13:14 74 20 99 03/08/17 12:53 98.0 80 20 165/88 98 Room Air 03/08/17 12:44 85 20 144/84 100 Room Air 03/08/17 12:39 85 20 147/74 100 Nasal Cannula 2.0 03/08/17 12:34 97.5 88 20 147/74 100 Nasal Cannula 2.0 03/08/17 12:00 97.9 90 21 142/81 97 Room Air 03/08/17 08:49 95 156/72 03/08/17 08:00 97.6 95 21 156/72 96 Room Air 03/08/17 08:00 94 03/08/17 04:00 92 03/08/17 04:00 98.2 84 20 174/78 95 Room Air 3.0 03/08/17 03:44 84 184/91 03/08/17 00:00 70 03/08/17 00:00 98.2 97 20 165/83 95 Room Air 3.0 Intake and Output 03/07/17 03/08/17 19:00 07:00 Intake Total 300 ml 420 ml Output Total 1400 ml 2000 ml Balance -1100 ml -1580 ml IV Total 300 ml Other 420 ml Output Urine Total 1400 ml 2000 ml # Bowel Movements 1 2 Laboratory Tests 03/08/17 07:05: White Blood Count 9.9, Red Blood Count 3.96L, Hemoglobin 9.8L, Hematocrit 31.7L , Mean Corpuscular Volume 80, Mean Corpuscular Hemoglobin 24.7L, Mean Corpuscular Hemoglobin Concent 30.8L, Red Cell Distribution Width 13.6, Platelet Count 294, Mean Platelet Volume 6.5, Neutrophils (%) (Auto) 60.4, Lymphocytes (%) (Auto) 25.4, Monocytes (%) (Auto) 10.1H, Eosinophils (%) (Auto) 3.6H, Basophils (%) (Auto) 0.6, Prothrombin Time 10.1, Prothromb Time International Ratio 1.0, Activated Partial Thromboplast Time 28, Sodium Level 138, Potassium Level 4.1, Chloride Level 107, Carbon Dioxide Level 23, Anion Gap 8, Blood Urea Nitrogen 4L, Creatinine 0.7, Estimat Glomerular Filtration Rate , Glucose Level 84, Calcium Level 8.8, Phosphorus Level 1.5L, Magnesium Level 2.3, Total Bilirubin 0.3, Aspartate Amino Transf (AST/SGOT) 16, Alanine Aminotransferase (ALT/SGPT) 8, Alkaline Phosphatase 46, Total Protein 7.4, Albumin 3.4L, Globulin 4.0, Albumin/Globulin Ratio 0.8L Height (Feet): 5 Height (Inches): 6.00 Weight (Pounds): 157 General Appearance: WD/WN EENT: PERRL/EOMI Neck: normal alignment Cardiovascular: normal rate Respiratory/Chest: chest wall non-tender Abdomen: normal bowel sounds Edema: no edema noted Pedal (L), no edema noted Pedal (R) 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
[2017-03-09] VITALS (10 sets, daily range): BP systolic 140–198; BP diastolic 75–105
[2017-03-09 07:09] LABS: BASOPHILS % (AUTO) 0.5 % (0.0-2.0); EOSINOPHILS % (AUTO) 4.8 % (0.0-3.0); LYMPHOCYTES % (AUTO) 21.2 % (20.0-45.0); MEAN CORPUSCULAR HEMOGLOBIN 24.7 PG (27.0-31.0); MEAN CORPUSCULAR HGB CONC 30.8 G/DL (32.0-36.0); MEAN CORPUSCULAR VOLUME 80 FL (80-99); MEAN PLATELET VOLUME 5.8 FL (6.5-10.1); NEUTROPHILS % (AUTO) 65.5 % (45.0-75.0); PLATELET COUNT 309 K/UL (150-450); RED BLOOD COUNT 4.23 M/UL (4.20-5.40); RED CELL DISTRIBUTION WIDTH 14.1 % (11.6-14.8); WHITE BLOOD COUNT 9.2 K/UL (4.8-10.8)
[2017-03-09 07:49] LABS: ANION GAP 11 (5-15); CALCIUM 8.6 mg/dL (8.6-10.2); CARBON DIOXIDE 22 mEQ/L (20-30); CHLORIDE 108 mEQ/L (98-107); CREATININE 0.8 mg/dL (0.5-0.9); HEMOLYSIS 37; POTASSIUM 4.3 mEQ/L (3.4-4.9); SODIUM 141 mEQ/L (135-145)
[2017-03-09] MEDS: Vitamin A&D Oint 2oz Tube TOPIC SCH ×2 (09:36→20:41)
[2017-03-09] MEDS: Carvedilol 12.5mg tab ORAL SCH ×2 (09:36→20:40)
[2017-03-09] MEDS: Nystatin Powder 100,000 units/gm 15gm TOPIC SCH ×3 (09:36→18:54)
[2017-03-09] MEDS: DULoxetine 30mg cap ORAL SCH (09:42)
[2017-03-09 10:06] LABS: OTHERS PATHOLOGIST COMMENT
--- NOTE | 2017-03-09 10:50 | GI Progress Note ---
Assessment/Plan Problems: (1) Hemorrhoids ICD Codes: K64.9 - Unspecified hemorrhoids SNOMED: 19081961 (2) Diverticulosis ICD Codes: K57.90 - Diverticulosis of intestine, part unspecified, without perforation or abscess without bleeding SNOMED: 699870511 (3) Anemia ICD Codes: D64.9 - Anemia, unspecified SNOMED: 282448371, 737689755 Qualifiers: Qualified Codes: D50.8 - Other iron deficiency anemias (4) DVT (deep venous thrombosis) ICD Codes: I82.409 - Acute embolism and thrombosis of unspecified deep veins of unspecified lower extremity SNOMED: 264104407 (5) Gastrointestinal hemorrhage ICD Codes: K92.2 - Gastrointestinal hemorrhage, unspecified SNOMED: 55411551 Qualifiers: Qualified Codes: K92.2 - Gastrointestinal hemorrhage, unspecified Status: stable Status Narrative Discussed with Dr. Fragoso. Assessment/Plan SUMMARY OF FINDINGS: 1. Diverticulosis. 2. Internal and external hemorrhoids. RECOMMENDATIONS: Most probably, the patient bled from diverticular flaring. Resume diet stable H&H, transfuse prn ppi fu labs Subjective Subjective denies N/V/D Objective Last 24 Hour Vital Signs Date Time Temp Pulse Resp B/P Pulse Ox O2 Delivery O2 Flow Rate FiO2 03/09/17 09:36 86 161/86 03/09/17 08:39 98.4 86 20 161/86 96 Room Air 03/09/17 04:30 99 19 161/89 98 Room Air 03/09/17 04:00 106 03/09/17 03:58 98.4 99 19 198/104 98 Room Air 03/09/17 00:00 78 03/08/17 23:50 98.8 94 18 192/87 97 03/08/17 20:59 98 158/85 03/08/17 20:00 98 03/08/17 19:58 98.1 98 19 158/85 95 Room Air 03/08/17 16:00 75 03/08/17 16:00 97.9 85 20 149/72 96 Room Air 03/08/17 13:14 74 20 99 03/08/17 12:53 98.0 80 20 165/88 98 Room Air 03/08/17 12:44 85 20 144/84 100 Room Air 03/08/17 12:39 85 20 147/74 100 Nasal Cannula 2.0 03/08/17 12:34 97.5 88 20 147/74 100 Nasal Cannula 2.0 03/08/17 12:00 97.9 90 21 142/81 97 Room Air Intake and Output 03/08/17 03/09/17 19:00 07:00 Intake Total 100 ml Output Total 1000 ml 450 ml Balance -900 ml -450 ml IV Total 100 ml Output Urine Total 1000 ml 450 ml # Bowel Movements 2 Laboratory Tests Test 03/09/17 05:30 White Blood Count 9.2 K/UL (4.8-10.8) Red Blood Count 4.23 M/UL (4.20-5.40) Hemoglobin 10.5 G/DL (12.0-16.0) L Hematocrit 34.0 % (37.0-47.0) L Mean Corpuscular Volume 80 FL (80-99) Mean Corpuscular Hemoglobin 24.7 PG (27.0-31.0) L Mean Corpuscular Hemoglobin Concent 30.8 G/DL (32.0-36.0) L Red Cell Distribution Width 14.1 % (11.6-14.8) Platelet Count 309 K/UL (150-450) Mean Platelet Volume 5.8 FL (6.5-10.1) L Neutrophils (%) (Auto) 65.5 % (45.0-75.0) Lymphocytes (%) (Auto) 21.2 % (20.0-45.0) Monocytes (%) (Auto) 8.0 % (1.0-10.0) Eosinophils (%) (Auto) 4.8 % (0.0-3.0) H Basophils (%) (Auto) 0.5 % (0.0-2.0) Sodium Level 141 mEQ/L (135-145) Potassium Level 4.3 mEQ/L (3.4-4.9) Chloride Level 108 mEQ/L (98-107) H Carbon Dioxide Level 22 mEQ/L (20-30) Anion Gap 11 (5-15) Blood Urea Nitrogen 5 mg/dL (7-23) L Creatinine 0.8 mg/dL (0.5-0.9) Estimat Glomerular Filtration Rate mL/min (>60) Glucose Level 85 mg/dL (74-106) Calcium Level 8.6 mg/dL (8.6-10.2) Height (Feet): 5 Height (Inches): 6.00 Weight (Pounds): 157 General Appearance: no apparent distress, alert Cardiovascular: normal rate Respiratory/Chest: normal breath sounds, no respiratory distress Abdominal Exam: normal bowel sounds, non tender, soft Anay Lockett N.P. Mar 09, 2017 10:50
[2017-03-09] MEDS ORDERED: Lidocaine 1% Plain 30 ml INJ ONE (11:45)
[2017-03-09] MEDS ORDERED: Heparin 2000 units/Ns 1000ml INJ ONE (11:45)
--- NOTE | 2017-03-09 11:59 | Pre-Procedure Note/Attestation ---
Pre-Procedure Note/Attestation Complete Prior to Procedure Planned Procedure: not applicable Indications for Procedure Pre-Operative Diagnosis: DVT. contraindication to medical anticoagulation b/c of GI bleed. requires IVC filter Attestation I attest that I discussed the nature of the procedure; its benefits; risks and complications; and alternatives (and the risks and benefits of such alternatives ), prior to the procedure, with the patient (or the patient's legal volunteer patient representative). I attest that, if there was a reasonable possibility of needing a blood transfusion, the patient (or the patient's legal volunteer patient representative) was given the [facility] standardized written summary, pursuant to the [place] Blood Safety Act ([place] Health and Safety Code # 1645, as amended). I attest that I re-evaluated the patient just prior to the surgery and that there has been no change in the patient's H&P, except as documented below: AP WHALEN M.D. Mar 09, 2017 11:59
--- NOTE | 2017-03-09 12:51 | Diagnostic Imaging Report ---
APPROVED REPORT CPT Code: 59538 Present Symptoms Comments: R/O DVT RIGHT LEG: Venous imaging reveals acute thrombus in the common and superficial femoral veins. Imaging also reveals patency of the popliteal and calf veins. The greater saphenous vein is also within normal limits. LEFT LEG: Venous imaging reveals a patent deep venous system. There is no evidence of thrombus within the femoral, popliteal or tibial segments. The greater saphenous vein is also within normal limits. Doppler indicates normal spontaneous flow within these segments.
--- NOTE | 2017-03-09 13:06 | Diagnostic Imaging Report ---
Indication:Right lower extremity DVT. Patient has a GI bleed which is a contraindication to medical anticoagulation. Procedure: After the indications, procedure, risks, complications, and alternatives of the procedure were explained, written informed consent was obtained. Patient was brought to the angio-fluoroscopic suite and placed supine on the table. The right neck was prepped and draped in the standard sterile fashion.1% lidocaine was used to anesthetize the skin. Using ultrasound guidance, the jugular vein was accessed using an 18 gauge needle. An 035 wire was introduced over which a 4 irish multi-endhole infusion catheter was introduced and negotiated into the lower IVC. Standard venogram was performed with digital subtraction. Location of the renal veins was noted. Inferior vena cava filter sheath was then exchanged over the wire. Inner stylette and wire then removed. The filter was then inserted into the sheath. Under fluoroscopic observation, the IVC filter was then unsheathed and deployed. The sheath was carefully removed under fluoroscopic observation. There were no complications. The patient tolerated the procedure well. Manual pressure was held at the site of venopuncture until hemostasis was achieved. Impression: Successful placement of inferior vena cava filter below the renal veins.
--- NOTE | 2017-03-09 14:50 | Pulmonology Progress Note ---
Assessment/Plan Problems: (1) Gastrointestinal hemorrhage (2) Anemia (3) Prolonged INR (4) DVT (deep venous thrombosis) (5) History of CVA (cerebrovascular accident) (6) [facility] resident Assessment/Plan endoscopy was negativ pt has DVt IVC filter done IV fluids check h/h, stable dc to group home after IVC Subjective ROS Limited/Unobtainable: No Constitutional: Reports: no symptoms HEENT: Repors: no symptoms Allergies: Coded Allergies: No Known Allergies (Unverified , 09/18/16) Objective Last 24 Hour Vital Signs Date Time Temp Pulse Resp B/P Pulse Ox O2 Delivery O2 Flow Rate FiO2 03/09/17 12:15 76 22 156/91 100 Nasal Cannula 3.0 03/09/17 12:10 75 29 185/105 100 Nasal Cannula 3.0 03/09/17 12:05 74 22 178/89 100 Nasal Cannula 3.0 03/09/17 12:02 77 16 188/89 100 Nasal Cannula 3.0 03/09/17 11:34 75 21 3.0 03/09/17 09:36 86 161/86 03/09/17 08:39 98.4 86 20 161/86 96 Room Air 03/09/17 04:30 99 19 161/89 98 Room Air 03/09/17 04:00 106 03/09/17 03:58 98.4 99 19 198/104 98 Room Air 03/09/17 00:00 78 03/08/17 23:50 98.8 94 18 192/87 97 03/08/17 20:59 98 158/85 03/08/17 20:00 98 03/08/17 19:58 98.1 98 19 158/85 95 Room Air 03/08/17 16:00 75 03/08/17 16:00 97.9 85 20 149/72 96 Room Air Intake and Output 03/08/17 03/09/17 19:00 07:00 Intake Total 100 ml Output Total 1000 ml 450 ml Balance -900 ml -450 ml IV Total 100 ml Output Urine Total 1000 ml 450 ml # Bowel Movements 2 General Appearance: WD/WN HEENT: normocephalic, atraumatic Respiratory/Chest: chest wall non-tender, lungs clear Breasts: no masses Cardiovascular: normal peripheral pulses Abdomen: normal bowel sounds, soft, non tender Genitourinary: normal external genitalia Extremities: no cyanosis, no clubbing Skin: no rash Laboratory Tests 03/09/17 05:30: White Blood Count 9.2, Red Blood Count 4.23, Hemoglobin 10.5L, Hematocrit 34.0L , Mean Corpuscular Volume 80, Mean Corpuscular Hemoglobin 24.7L, Mean Corpuscular Hemoglobin Concent 30.8L, Red Cell Distribution Width 14.1, Platelet Count 309, Mean Platelet Volume 5.8L, Neutrophils (%) (Auto) 65.5, Lymphocytes (%) (Auto) 21.2, Monocytes (%) (Auto) 8.0, Eosinophils (%) (Auto) 4.8H, Basophils (%) (Auto) 0.5, Sodium Level 141, Potassium Level 4.3, Chloride Level 108H, Carbon Dioxide Level 22, Anion Gap 11, Blood Urea Nitrogen 5L, Creatinine 0.8, Estimat Glomerular Filtration Rate , Glucose Level 85, Calcium Level 8.6 Current Medications Medications (Trade) Dose Ordered Sig/Claudia Route PRN Reason Start Time Stop Time Status Last Admin Dose Admin Acetaminophen 650 mg 650 mg Q4H PRN ORAL Mild Pain/Temp > 100.5 03/06/17 14:45 04/05/17 14:44 03/09/17 05:53 Al Hydroxide/Mg Hydroxide (Mylanta II) 30 ml Q6H PRN ORAL dyspepsia 03/05/17 06:45 04/04/17 06:44 Amlodipine Besylate (Norvasc) 5 mg DAILY PRN ORAL if SBP >155 03/07/17 13:00 04/06/17 12:59 03/08/17 03:44 Carvedilol (Coreg) 12.5 mg EVERY 12 HOURS ORAL 03/05/17 09:00 04/04/17 08:59 03/09/17 09:36 Dextrose (Dextrose 50%) STAT PRN IV Hypoglycemia 03/05/17 06:45 04/04/17 06:44 Diphenhydramine HCl (Benadryl) 25 mg Q6H PRN ORAL Itching/Pruritis 03/05/17 06:45 04/04/17 06:44 03/09/17 05:30 Duloxetine HCl (Cymbalta) 90 mg DAILY ORAL 03/05/17 09:00 04/04/17 08:59 03/09/17 09:42 Iron Sucrose/ Sodium Chloride (Venofer/Sodium Chloride) 60 ml @ 240 mls/hr BEDTIME IVPB 03/07/17 21:00 03/11/17 21:14 03/08/17 20:59 Morphine Sulfate (Morphine Sulfate) 2 mg Q4H PRN IVP severe Pain (Pain Scale 7-10) 03/05/17 06:45 03/12/17 06:44 Nitroglycerin (Ntg) 0.4 mg Q5M X 3 DOSES PRN SL Prn Chest Pain 03/05/17 06:45 04/04/17 06:44 Nystatin (Nystop Powder) 1 applic THREE TIMES A DAY TOPIC 03/08/17 13:00 04/07/17 12:59 03/09/17 13:49 Ondansetron HCl (Zofran) 4 mg Q6H PRN IVP Nausea & Vomiting 03/05/17 06:45 04/04/17 06:44 Pantoprazole (Protonix) 40 mg ACBREAKFAST ORAL 03/09/17 06:30 04/05/17 08:59 03/09/17 05:30 Polyethylene Glycol (Miralax) 17 gm HSPRN PRN ORAL Constipation 03/05/17 06:45 04/04/17 06:44 Temazepam (Restoril) 15 mg HSPRN PRN ORAL Insomnia 03/05/17 06:45 03/12/17 06:44 Trazodone HCl (Desyrel) 150 mg BEDTIME ORAL 03/05/17 21:00 04/04/17 20:59 03/08/17 20:59 Vitamin A/Vitamin D (A & D Oint) 1 applic EVERY 12 HOURS TOPIC 03/08/17 13:00 04/07/17 12:59 03/09/17 09:36 MARYAM BATES Mar 09, 2017 14:50
[2017-03-09] MEDS ORDERED: INVANZ1 G1 IM (15:09)
--- NOTE | 2017-03-09 16:05 | Consultation ---
Consult Note Consult Note Patient: TENZIN VAZQUEZ [facility] Rec #: [id number] Patient No.: [id number] Date of Admission: 03/05/17 DATE OF CONSULTATION: 03/09/2017 Infectious Diseases CONSULTATION covering for Dr. Solis CONSULTING PHYSICIAN: Neeraj Mora M.D., [facility]& REQUESTING PHYSICIAN: Otoniel Nicole M.D. REASON FOR CONSULTATION: ESBL E coli IDENTIFICATION DATA: 71-year-old female group home resident with a past medical history significant for DVT on Coumadin, history of CVA, admitted with BRPBR and anemia , found to have an elevated WBC count, pyuria, and now growing ESBL E coli from urine culture. During her admission, she had a colonoscopy suggests she had a diverticular bleed. She had b/l venous dopplers demonstrating acute thrombus in R common femoral and superficial femoral veins for which she subsequently had placement of IVC filter. her leukocytosis has improved, and she has remained afebrile. no prior indwelling owens, currently with owens in place. A CT with contrast demonstrated a 12mm obstructing stone in R renal pelvis, and although no stone seen within the R ureter, she has an abrupt dilatatation of the R ureter at midpoint suggestive of recent stone that has passed. PAST MEDICAL HISTORY: DVT ischemic CVA prior sepsis hemiplegia depression HLD Home MEDICATIONS: Lipitor, calcium, Coreg, multivitamins, Coumadin. current antibiotics: none ALLERGIES: No known drug allergies. SOCIAL HISTORY: None reported. REVIEW OF SYSTEMS: Constitutional: No fever, no chills, and no night sweats. Skin: No rashes, bumps, or itching. HEENT: No headache, hearing, or vision changes. Breasts: No lumps, pain, or discharge. Pulmonary: No cough, sputum, or shortness of breath. Cardiovascular: No chest pain, tightness, or palpitations. Gastrointestinal: No nausea or vomiting, however, does have GI bleed. PHYSICAL EXAMINATION: GENERAL: The patient is in no distress. VITAL SIGNS: Temperature 98 degrees Fahrenheit, pulse 62, blood pressure 131/70, respiratory rate 12, and O2 saturation 100% on room air. PULMONARY: Decreased breath sounds. CARDIOVASCULAR: Regular rate. No S3 or S4. ABDOMEN: Soft, nontender and nondistended. EXTREMITIES: There is 1+ edema. L hand dorsum with superficial open wound, with granulation at the base, no purulence, and no surrounding erythema LABORATORY DATA: reviewed. leukocytosis has resolved. 03/06 Ucx: ESBL E coli nares: MRSA colonized L hand wound cx: MRSA blood cx not obtained Radiology: Procedure: CT Chest Abdomen Pelvis W/Cont Indication: 71-year-old female with chest and abdominal pain, gastrointestinal bleed Technique: Continuous helical transaxial imaging of the chest, abdomen and pelvis was obtained from the lung bases to the pubic symphysis during intravenous contrast administration. Multiple phases of enhancement obtained. Coronal 2-D reformats were also obtained. Study obtained in a Siemens sensation [address] Total Dose length Product (DLP): [address] Dose Index Volume (CTDIvol): 0.2, 8.1, 56.8, 17, 14.6 mGy Comparison: None Findings: CT chest: There is generalized cardiomegaly present. Arterial calcifications are noted in the aorta and coronary arteries. There is no adenopathy. Trace basilar effusions and atelectasis demonstrated. Additional streaky densities could be scarring or atelectasis. There is there are space disease. Small lymph nodes are seen in the axilla bilaterally nonspecific in nature. CT abdomen pelvis: There is thickening of the wall the distal esophagus. There is prominence of the wall of the fundus and body of the stomach. This could very well be a normal finding due to contraction. The stomach is not evaluated well on this exam. There is a right stone in the renal pelvis measuring approximately 12 mm associated with calyceal dilitation and ill-defined stranding likely inflammation. There is a calyceal stone in the upper pole calyx of the right kidney measuring 8 mm. Other smaller stones noted. The proximal and mid right ureter is dilated with a fairly abrupt transition just anterior to the psoas muscle. There is faint intraluminal high attenuation within the proximal dilated segment of the ureter (debris or blood?) but no distinct stone is seen at the transition point (images [id number], series 10). Left kidney and collecting system appear unremarkable. Bladder shows a Owens catheter in good position. There are cavitations within the uterus consistent with fibroids. The appendix is normal. Diverticula noted throughout the colon without definite evidence of diverticulitis. Bladder is unremarkable. There are old compression fracture deformities of T11, T12, L2 and generalized osteoporosis. There is narrowing of intervertebral discs and accompanying endplate osteophyte formation. Hypertrophied facet joints also demonstrated.. Small fat-containing supraumbilical hernia is noted. Impression: Moderate inflammation with right hydronephrosis with dilatation of the renal pelvis and calyces secondary to calcific debris or blood within the proximal right ureter. Obstructing 12 mm stone also seen within renal pelvis.The hydronephrotic ureter transitions abruptly in the mid ureter level. No stone is seen at this transition. Nonobstructive 8 mm stone in the upper pole calyx of the right kidney and other smaller calyceal stones noted. Atherosclerotic disease Thickening of the distal wall of esophagus. Consider endoscopy Small supraumbilical hernia containing fat. Diverticulosis of the colon Calcified uterine fibroids Owens catheter in good position Osteoporosis. Old vertebral fractures as described above Apparent thickening of the wall the stomach. This is questionable. Consider endoscopy. Small bilateral renal cysts. Assessment/Plan ASSESSMENT: 71 y/o female admitted for diverticular bleed, incidentally found to have acute RLE DVT, and now confirmed to have ESBL E coli UTI in the setting of a 12mm R renal pelvis obstructing stone with evidence of either a recently passed R ureteral stone or a persistent non radioopaque stone within that R ureter that is causing proximal dilatation. Given the inflammation around that R renal pelvic stone, I am concerned that stone is infected, and this makes risk of relapsed UTI much higher. Also, she has a shallow open sore on her L hand dorsally that has good granulation tissue at the base w/o purulence and w/o surrounding cellulitis. although this is colonized with MRSA, it is not infected, and should resolve over time with continued wound care. 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 Please contact me with any questions. [phone] Neeraj Mora M.D. Mar 09, 2017 16:05
[2017-03-09] MEDS ORDERED: NS 275ml ONE (16:47)
[2017-03-09] MEDS ORDERED: Ertapenem 1 GM in NS 55 ML IVPB SCH (17:00)
--- NOTE | 2017-03-09 17:03 | General Progress Note ---
Assessment/Plan Assessment/Plan 1. Anemia secondary to gastrointestinal bleed. Esophagogastroduodenoscopy performed. ---> showed diverticulosis, probable bleeding from diverticular flaring. No recurrent bleeding 2. R Deep venous thrombosis of the superficial femoral vein, on Coumadin. Coumadin has been currently discontinued. At this point, recommend to obtain a duplex of the lower extremity and results are still pending. Prior deep venous thrombosis diagnosed in September of this year. ---> s/p ivc filter 3. Failure to thrive. A CAT scan of the chest, abdomen, and pelvis ordered, which shows moderate inflammation, right hydronephrosis, diverticulitis, Christianson catheter in good position, and osteoporosis. 4. Osteoporosis. 5. Coagulopathy secondary to Coumadin, improved. 6. Anemia secondary to chronic disease. 7. Hypocalcemia. 8. Leukocytosis, improved. 9. Discussed with staff. 10. I greatly appreciate this consultation. Subjective Constitutional: Reports: no symptoms HEENT: Reports: no symptoms Cardiovascular: Reports: no symptoms Respiratory: Reports: no symptoms Gastrointestinal/Abdominal: Reports: no symptoms Genitourinary: Reports: no symptoms Neurologic/Psychiatric: Reports: no symptoms Endocrine: Reports: no symptoms Hematologic/Lymphatic: Reports: no symptoms Allergies: Coded Allergies: No Known Allergies (Unverified , 09/18/16) Subjective s/p ivc placement Objective Last 24 Hour Vital Signs Date Time Temp Pulse Resp B/P Pulse Ox O2 Delivery O2 Flow Rate FiO2 03/09/17 16:28 97.2 99 20 140/75 96 Room Air 03/09/17 12:15 76 22 156/91 100 Nasal Cannula 3.0 03/09/17 12:10 75 29 185/105 100 Nasal Cannula 3.0 03/09/17 12:05 74 22 178/89 100 Nasal Cannula 3.0 03/09/17 12:02 77 16 188/89 100 Nasal Cannula 3.0 03/09/17 11:34 75 21 3.0 03/09/17 09:36 86 161/86 03/09/17 08:39 98.4 86 20 161/86 96 Room Air 03/09/17 04:30 99 19 161/89 98 Room Air 03/09/17 04:00 106 03/09/17 03:58 98.4 99 19 198/104 98 Room Air 03/09/17 00:00 78 03/08/17 23:50 98.8 94 18 192/87 97 03/08/17 20:59 98 158/85 03/08/17 20:00 98 03/08/17 19:58 98.1 98 19 158/85 95 Room Air Intake and Output 03/08/17 03/09/17 19:00 07:00 Intake Total 100 ml Output Total 1000 ml 450 ml Balance -900 ml -450 ml IV Total 100 ml Output Urine Total 1000 ml 450 ml # Bowel Movements 2 Laboratory Tests 03/09/17 05:30: White Blood Count 9.2, Red Blood Count 4.23, Hemoglobin 10.5L, Hematocrit 34.0L , Mean Corpuscular Volume 80, Mean Corpuscular Hemoglobin 24.7L, Mean Corpuscular Hemoglobin Concent 30.8L, Red Cell Distribution Width 14.1, Platelet Count 309, Mean Platelet Volume 5.8L, Neutrophils (%) (Auto) 65.5, Lymphocytes (%) (Auto) 21.2, Monocytes (%) (Auto) 8.0, Eosinophils (%) (Auto) 4.8H, Basophils (%) (Auto) 0.5, Sodium Level 141, Potassium Level 4.3, Chloride Level 108H, Carbon Dioxide Level 22, Anion Gap 11, Blood Urea Nitrogen 5L, Creatinine 0.8, Estimat Glomerular Filtration Rate , Glucose Level 85, Calcium Level 8.6 Height (Feet): 5 Height (Inches): 6.00 Weight (Pounds): 157 General Appearance: no apparent distress EENT: PERRL/EOMI Neck: normal alignment Cardiovascular: normal peripheral pulses Respiratory/Chest: chest wall non-tender Extremities: normal range of motion Edema: no edema noted Pedal (L), no edema noted Pedal (R) Skin: warm/dry Kane Hughes Mar 09, 2017 17:03
[2017-03-09] MEDS: TraZODone 100mg tab ORAL SCH (20:40)
[2017-03-09] MEDS: Iron Sucrose 100 MG in NS 55 ML IVPB SCH (20:42)
[2017-03-10] VITALS: BP 142/88
[2017-03-10 04:00] VITALS: BP 150/85
[2017-03-10 07:55] VITALS: BP_SYST 151; BP_SYST 168; BP_DIAS 81; BP_DIAS 94
[2017-03-10] MEDS: Nystatin Powder 100,000 units/gm 15gm TOPIC SCH ×3 (08:21→17:39)
[2017-03-10] MEDS: Vitamin A&D Oint 2oz Tube TOPIC SCH ×2 (08:21→20:23)
[2017-03-10] MEDS: DULoxetine 30mg cap ORAL SCH (08:22)
[2017-03-10] MEDS: Carvedilol 12.5mg tab ORAL SCH ×2 (08:22→20:22)
[2017-03-10 08:58] LABS: PROTHROMBIN TIME 10.4 SEC (9.30-11.50)
[2017-03-10 08:59] LABS: BASOPHILS % (AUTO) 0.6 % (0.0-2.0); EOSINOPHILS % (AUTO) 6.7 % (0.0-3.0); LYMPHOCYTES % (AUTO) 24.9 % (20.0-45.0); MEAN CORPUSCULAR HEMOGLOBIN 24.9 PG (27.0-31.0); MEAN CORPUSCULAR HGB CONC 30.8 G/DL (32.0-36.0); MEAN CORPUSCULAR VOLUME 81 FL (80-99); MEAN PLATELET VOLUME 6.1 FL (6.5-10.1); NEUTROPHILS % (AUTO) 58.8 % (45.0-75.0); PLATELET COUNT 327 K/UL (150-450); RED BLOOD COUNT 3.92 M/UL (4.20-5.40); RED CELL DISTRIBUTION WIDTH 14.2 % (11.6-14.8); WHITE BLOOD COUNT 8.9 K/UL (4.8-10.8)
[2017-03-10 09:02] LABS: ANION GAP 9 (5-15); CALCIUM 8.7 mg/dL (8.6-10.2); CARBON DIOXIDE 25 mEQ/L (20-30); CHLORIDE 107 mEQ/L (98-107); CREATININE 0.8 mg/dL (0.5-0.9); HEMOLYSIS 9; MAGNESIUM 2.2 mg/dL (1.7-2.5); PHOSPHORUS 1.9 mg/dL (2.5-4.8); POTASSIUM 3.8 mEQ/L (3.4-4.9); SODIUM 141 mEQ/L (135-145)
[2017-03-10] MEDS ORDERED: Tubing IV Secondary IV ONE (09:05)
--- NOTE | 2017-03-10 09:29 | Pulmonology Progress Note ---
Assessment/Plan Problems: (1) Gastrointestinal hemorrhage (2) Anemia (3) Prolonged INR (4) DVT (deep venous thrombosis) (5) History of CVA (cerebrovascular accident) (6) skilled nursing resident Assessment/Plan pt has DVt IVC filter done IV fluids check h/h, stable awaiting Urology evaluation for Hydronephrosis Subjective ROS Limited/Unobtainable: No Constitutional: Reports: no symptoms HEENT: Repors: no symptoms Allergies: Coded Allergies: No Known Allergies (Unverified , 09/18/16) Objective Last 24 Hour Vital Signs Date Time Temp Pulse Resp B/P Pulse Ox O2 Delivery O2 Flow Rate FiO2 03/10/17 08:22 103 168/94 03/10/17 08:00 88 03/10/17 07:55 97.1 103 20 168/94 98 Room Air 03/10/17 04:00 97.3 84 20 150/85 96 Room Air 03/10/17 04:00 86 03/10/17 00:00 99.9 95 20 142/88 Room Air 03/10/17 00:00 97 03/09/17 20:40 121 149/79 03/09/17 20:00 114 03/09/17 20:00 99.1 121 20 149/79 95 Nasal Cannula 2.0 03/09/17 16:28 97.2 99 20 140/75 96 Room Air 03/09/17 16:00 98 03/09/17 12:15 76 22 156/91 100 Nasal Cannula 3.0 03/09/17 12:10 75 29 185/105 100 Nasal Cannula 3.0 03/09/17 12:05 74 22 178/89 100 Nasal Cannula 3.0 03/09/17 12:02 77 16 188/89 100 Nasal Cannula 3.0 03/09/17 11:34 75 21 3.0 03/09/17 09:36 86 161/86 Intake and Output 03/09/17 03/10/17 19:00 07:00 Intake Total 535 ml 60 ml Output Total 400 ml 200 ml Balance 135 ml -140 ml Intake Oral 480 ml IV Total 55 ml 60 ml Output Urine Total 400 ml 200 ml Objective General Appearance: WD/WN HEENT: normocephalic Respiratory/Chest: chest wall non-tender, lungs clear Cardiovascular: normal peripheral pulses, normal rate Abdomen: normal bowel sounds, soft, non tender Genitourinary: normal external genitalia Extremities: no cyanosis Skin: no rash Neurologic/Psychiatric: shorthand reporter II-XII grossly normal Lymphatic: no neck adenopathy Laboratory Tests 03/10/17 07:33: White Blood Count 8.9, Red Blood Count 3.92L, Hemoglobin 9.8L, Hematocrit 31.7L , Mean Corpuscular Volume 81, Mean Corpuscular Hemoglobin 24.9L, Mean Corpuscular Hemoglobin Concent 30.8L, Red Cell Distribution Width 14.2, Platelet Count 327, Mean Platelet Volume 6.1L, Neutrophils (%) (Auto) 58.8, Lymphocytes (%) (Auto) 24.9, Monocytes (%) (Auto) 9.0, Eosinophils (%) (Auto) 6.7H, Basophils (%) (Auto) 0.6, Prothrombin Time 10.4, Prothromb Time International Ratio 1.0, Activated Partial Thromboplast Time 30, Sodium Level 141, Potassium Level 3.8, Chloride Level 107, Carbon Dioxide Level 25, Anion Gap 9, Blood Urea Nitrogen 7, Creatinine 0.8, Estimat Glomerular Filtration Rate , Glucose Level 94, Calcium Level 8.7, Phosphorus Level 1.9L, Magnesium Level 2.2 Current Medications Medications (Trade) Dose Ordered Sig/Claudia Route PRN Reason Start Time Stop Time Status Last Admin Dose Admin Acetaminophen 650 mg 650 mg Q4H PRN ORAL Mild Pain/Temp > 100.5 03/06/17 14:45 04/05/17 14:44 03/09/17 21:47 Al Hydroxide/Mg Hydroxide (Mylanta II) 30 ml Q6H PRN ORAL dyspepsia 03/05/17 06:45 04/04/17 06:44 Amlodipine Besylate (Norvasc) 5 mg DAILY PRN ORAL if SBP >155 03/07/17 13:00 04/06/17 12:59 03/08/17 03:44 Carvedilol (Coreg) 12.5 mg EVERY 12 HOURS ORAL 03/05/17 09:00 04/04/17 08:59 03/10/17 08:22 Dextrose (Dextrose 50%) STAT PRN IV Hypoglycemia 03/05/17 06:45 04/04/17 06:44 Diphenhydramine HCl (Benadryl) 25 mg Q6H PRN ORAL Itching/Pruritis 03/05/17 06:45 04/04/17 06:44 03/09/17 05:30 Duloxetine HCl (Cymbalta) 90 mg DAILY ORAL 03/05/17 09:00 04/04/17 08:59 03/10/17 08:22 Ertapenem/Sodium Chloride (INVanz/Sodium Chloride) 55 ml @ 110 mls/hr Q24H IVPB 03/09/17 17:00 03/14/17 16:59 03/09/17 16:41 Iron Sucrose/ Sodium Chloride (Venofer/Sodium Chloride) 60 ml @ 240 mls/hr BEDTIME IVPB 03/07/17 21:00 03/11/17 21:14 03/09/17 20:42 Morphine Sulfate (Morphine Sulfate) 2 mg Q4H PRN IVP severe Pain (Pain Scale 7-10) 03/05/17 06:45 03/12/17 06:44 Nitroglycerin (Ntg) 0.4 mg Q5M X 3 DOSES PRN SL Prn Chest Pain 03/05/17 06:45 04/04/17 06:44 Nystatin 1 applic 1 applic THREE TIMES A DAY TOPIC 03/08/17 13:00 04/07/17 12:59 03/10/17 08:21 Ondansetron HCl (Zofran) 4 mg Q6H PRN IVP Nausea & Vomiting 03/05/17 06:45 04/04/17 06:44 Pantoprazole (Protonix) 40 mg ACBREAKFAST ORAL 03/09/17 06:30 04/05/17 08:59 03/10/17 05:48 Polyethylene Glycol (Miralax) 17 gm HSPRN PRN ORAL Constipation 03/05/17 06:45 04/04/17 06:44 Temazepam (Restoril) 15 mg HSPRN PRN ORAL Insomnia 03/05/17 06:45 03/12/17 06:44 Trazodone HCl (Desyrel) 150 mg BEDTIME ORAL 03/05/17 21:00 04/04/17 20:59 03/09/17 20:40 Vitamin A/Vitamin D (A & D Oint) 1 applic EVERY 12 HOURS TOPIC 03/08/17 13:00 04/07/17 12:59 03/10/17 08:21 MARYAM BATES 8, 2017 09:29
--- NOTE | 2017-03-10 11:30 | Infectious Diseases Prog Note ---
Assessment/Plan Assessment/Plan ASSESSMENT: 71 y/o female admitted for diverticular bleed, incidentally found to have acute RLE DVT, and now confirmed to have ESBL E coli UTI in the setting of a 12mm R renal pelvis stone with evidence of a recently passed R ureteral stone but no persistent ureteral obstruction for which urology input was solicited. Also , she has a shallow open sore on her L hand dorsally that has good granulation tissue at the base w/o purulence and w/o surrounding cellulitis. although this is colonized with MRSA, it is not infected, and should resolve over time with continued wound care. 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 RLE DVT, h/o DVT osteoporosis anemia secondary to chronic disease Hypocalcemia Plan Ertapenem 1gm IV q24hr, day 1 of 10 okay for dispo to SNF from ID standpoint monitor owens output, d/c owens if no longer indicated wound care to L hand monitor CBC, chem panel Subjective Allergies: Coded Allergies: No Known Allergies (Unverified , 09/18/16) Objective Vital Signs Last 24 Hour Vital Signs Date Time Temp Pulse Resp B/P Pulse Ox O2 Delivery O2 Flow Rate FiO2 03/10/17 08:22 103 168/94 03/10/17 08:00 88 03/10/17 07:55 97.1 103 20 168/94 98 Room Air 03/10/17 04:00 97.3 84 20 150/85 96 Room Air 03/10/17 04:00 86 03/10/17 00:00 99.9 95 20 142/88 Room Air 03/10/17 00:00 97 03/09/17 20:40 121 149/79 03/09/17 20:00 114 03/09/17 20:00 99.1 121 20 149/79 95 Nasal Cannula 2.0 03/09/17 16:28 97.2 99 20 140/75 96 Room Air 03/09/17 16:00 98 03/09/17 12:15 76 22 156/91 100 Nasal Cannula 3.0 03/09/17 12:10 75 29 185/105 100 Nasal Cannula 3.0 03/09/17 12:05 74 22 178/89 100 Nasal Cannula 3.0 03/09/17 12:02 77 16 188/89 100 Nasal Cannula 3.0 03/09/17 11:34 75 21 3.0 Height (Feet): 5 Height (Inches): 6.00 Weight (Pounds): 157 General Appearance: no acute distress HEENT: anicteric Respiratory/Chest: lungs clear Cardiovascular: normal rate Abdomen: soft, non tender Extremities: no cyanosis, no edema Skin: no rash 03/05/17: Ucx: ESBL E coli hand wound cx: MRSA Laboratory Tests Test 03/10/17 07:33 White Blood Count 8.9 K/UL (4.8-10.8) Red Blood Count 3.92 M/UL (4.20-5.40) L Hemoglobin 9.8 G/DL (12.0-16.0) L Hematocrit 31.7 % (37.0-47.0) L Mean Corpuscular Volume 81 FL (80-99) Mean Corpuscular Hemoglobin 24.9 PG (27.0-31.0) L Mean Corpuscular Hemoglobin Concent 30.8 G/DL (32.0-36.0) L Red Cell Distribution Width 14.2 % (11.6-14.8) Platelet Count 327 K/UL (150-450) Mean Platelet Volume 6.1 FL (6.5-10.1) L Neutrophils (%) (Auto) 58.8 % (45.0-75.0) Lymphocytes (%) (Auto) 24.9 % (20.0-45.0) Monocytes (%) (Auto) 9.0 % (1.0-10.0) Eosinophils (%) (Auto) 6.7 % (0.0-3.0) H Basophils (%) (Auto) 0.6 % (0.0-2.0) Prothrombin Time 10.4 SEC (9.30-11.50) Prothromb Time International Ratio 1.0 (0.9-1.1) Activated Partial Thromboplast Time 30 SEC (23-33) Sodium Level 141 mEQ/L (135-145) Potassium Level 3.8 mEQ/L (3.4-4.9) Chloride Level 107 mEQ/L (98-107) Carbon Dioxide Level 25 mEQ/L (20-30) Anion Gap 9 (5-15) Blood Urea Nitrogen 7 mg/dL (7-23) Creatinine 0.8 mg/dL (0.5-0.9) Estimat Glomerular Filtration Rate mL/min (>60) Glucose Level 94 mg/dL (74-106) Calcium Level 8.7 mg/dL (8.6-10.2) Phosphorus Level 1.9 mg/dL (2.5-4.8) L Magnesium Level 2.2 mg/dL (1.7-2.5) Current Medications Medications (Trade) Dose Ordered Sig/Claudia Route PRN Reason Start Time Stop Time Status Last Admin Dose Admin Acetaminophen 650 mg 650 mg Q4H PRN ORAL Mild Pain/Temp > 100.5 03/06/17 14:45 04/05/17 14:44 03/09/17 21:47 Al Hydroxide/Mg Hydroxide (Mylanta II) 30 ml Q6H PRN ORAL dyspepsia 03/05/17 06:45 04/04/17 06:44 Amlodipine Besylate (Norvasc) 5 mg DAILY PRN ORAL if SBP >155 03/07/17 13:00 04/06/17 12:59 03/08/17 03:44 Carvedilol (Coreg) 12.5 mg EVERY 12 HOURS ORAL 03/05/17 09:00 04/04/17 08:59 03/10/17 08:22 Dextrose (Dextrose 50%) STAT PRN IV Hypoglycemia 03/05/17 06:45 04/04/17 06:44 Diphenhydramine HCl (Benadryl) 25 mg Q6H PRN ORAL Itching/Pruritis 03/05/17 06:45 04/04/17 06:44 03/09/17 05:30 Duloxetine HCl (Cymbalta) 90 mg DAILY ORAL 03/05/17 09:00 04/04/17 08:59 03/10/17 08:22 Ertapenem/Sodium Chloride (INVanz/Sodium Chloride) 55 ml @ 110 mls/hr Q24H IVPB 03/09/17 17:00 03/14/17 16:59 03/09/17 16:41 Iron Sucrose/ Sodium Chloride (Venofer/Sodium Chloride) 60 ml @ 240 mls/hr BEDTIME IVPB 03/07/17 21:00 03/11/17 21:14 03/09/17 20:42 Morphine Sulfate (Morphine Sulfate) 2 mg Q4H PRN IVP severe Pain (Pain Scale 7-10) 03/05/17 06:45 03/12/17 06:44 Nitroglycerin (Ntg) 0.4 mg Q5M X 3 DOSES PRN SL Prn Chest Pain 03/05/17 06:45 04/04/17 06:44 Nystatin 1 applic 1 applic THREE TIMES A DAY TOPIC 03/08/17 13:00 04/07/17 12:59 03/10/17 08:21 Ondansetron HCl (Zofran) 4 mg Q6H PRN IVP Nausea & Vomiting 03/05/17 06:45 04/04/17 06:44 Pantoprazole (Protonix) 40 mg ACBREAKFAST ORAL 03/09/17 06:30 04/05/17 08:59 03/10/17 05:48 Polyethylene Glycol (Miralax) 17 gm HSPRN PRN ORAL Constipation 03/05/17 06:45 04/04/17 06:44 Temazepam (Restoril) 15 mg HSPRN PRN ORAL Insomnia 03/05/17 06:45 03/12/17 06:44 Trazodone HCl (Desyrel) 150 mg BEDTIME ORAL 03/05/17 21:00 04/04/17 20:59 03/09/17 20:40 Vitamin A/Vitamin D (A & D Oint) 1 applic EVERY 12 HOURS TOPIC 03/08/17 13:00 04/07/17 12:59 03/10/17 08:21 Neerja Mora M.D. Mar 10, 2017 11:30
[2017-03-10 11:57] VITALS: BP 164/109
--- NOTE | 2017-03-10 12:20 | General Progress Note ---
Assessment/Plan Problem List: (1) Anemia ICD Codes: D64.9 - Anemia, unspecified SNOMED: 984340215, 807966915 Qualifiers: Qualified Codes: D50.8 - Other iron deficiency anemias (2) Gastrointestinal hemorrhage ICD Codes: K92.2 - Gastrointestinal hemorrhage, unspecified SNOMED: 24121406 Qualifiers: Qualified Codes: K92.2 - Gastrointestinal hemorrhage, unspecified (3) halfway resident ICD Codes: Z59.3 - Problems related to living in residential institution SNOMED: 199904260 Assessment/Plan s/p EGd and colonoscopy stable H&H fu labs Subjective ROS Limited/Unobtainable: Yes Allergies: Coded Allergies: No Known Allergies (Unverified , 09/18/16) Subjective no event over night Objective Last 24 Hour Vital Signs Date Time Temp Pulse Resp B/P Pulse Ox O2 Delivery O2 Flow Rate FiO2 03/10/17 12:07 87 164/109 03/10/17 11:57 98.1 87 20 164/109 97 Room Air 03/10/17 08:22 103 168/94 03/10/17 08:00 88 03/10/17 07:55 97.1 103 20 168/94 98 Room Air 03/10/17 04:00 97.3 84 20 150/85 96 Room Air 03/10/17 04:00 86 03/10/17 00:00 99.9 95 20 142/88 Room Air 03/10/17 00:00 97 03/09/17 20:40 121 149/79 03/09/17 20:00 114 03/09/17 20:00 99.1 121 20 149/79 95 Nasal Cannula 2.0 03/09/17 16:28 97.2 99 20 140/75 96 Room Air 03/09/17 16:00 98 Intake and Output 03/09/17 03/10/17 19:00 07:00 Intake Total 535 ml 60 ml Output Total 400 ml 200 ml Balance 135 ml -140 ml Intake Oral 480 ml IV Total 55 ml 60 ml Output Urine Total 400 ml 200 ml Laboratory Tests 03/10/17 07:33: White Blood Count 8.9, Red Blood Count 3.92L, Hemoglobin 9.8L, Hematocrit 31.7L , Mean Corpuscular Volume 81, Mean Corpuscular Hemoglobin 24.9L, Mean Corpuscular Hemoglobin Concent 30.8L, Red Cell Distribution Width 14.2, Platelet Count 327, Mean Platelet Volume 6.1L, Neutrophils (%) (Auto) 58.8, Lymphocytes (%) (Auto) 24.9, Monocytes (%) (Auto) 9.0, Eosinophils (%) (Auto) 6.7H, Basophils (%) (Auto) 0.6, Prothrombin Time 10.4, Prothromb Time International Ratio 1.0, Activated Partial Thromboplast Time 30, Sodium Level 141, Potassium Level 3.8, Chloride Level 107, Carbon Dioxide Level 25, Anion Gap 9, Blood Urea Nitrogen 7, Creatinine 0.8, Estimat Glomerular Filtration Rate , Glucose Level 94, Calcium Level 8.7, Phosphorus Level 1.9L, Magnesium Level 2.2 Height (Feet): 5 Height (Inches): 6.00 Weight (Pounds): 157 General Appearance: no apparent distress EENT: normal ENT inspection Neck: supple Cardiovascular: normal rate Respiratory/Chest: decreased breath sounds Abdomen: normal bowel sounds, non tender, soft Extremities: non-tender ANGÉLICA DANIELS Mar 10, 2017 12:20
[2017-03-10 13:40] VITALS: BP 156/83
[2017-03-10] MEDS ORDERED: Morphine Sulfate 2mg/ml Inj IVP PRN (15:00)
[2017-03-10] MEDS ORDERED: Nitroglycerin Subl 0.4mg tab (Bottle Of 25) SL PRN (15:00)
--- NOTE | 2017-03-10 15:19 | Cardiology Progress Note ---
Assessment/Plan Problem List: (1) Gastrointestinal hemorrhage (2) DVT (deep venous thrombosis) (3) History of CVA (cerebrovascular accident) (4) Diverticulosis (5) Anemia Status: stable, progressing Status Narrative Pt s/p IVC filter placement for DVT on 03/09. H/H stable, with no evidence for active bleed. She has had no further arrhythmias on telemetry. Her BP is elevated today Assessment/Plan Can transfer off telemetry. continue to follow h/h. will start amlodipine qd. Subjective ROS Limited/Unobtainable: No Subjective No c/o chest pain, dyspnea Objective Last 24 Hour Vital Signs Date Time Temp Pulse Resp B/P Pulse Ox O2 Delivery O2 Flow Rate FiO2 03/10/17 13:40 156/83 03/10/17 12:07 87 164/109 03/10/17 12:00 89 03/10/17 11:57 98.1 87 20 164/109 97 Room Air 03/10/17 08:22 103 168/94 03/10/17 08:00 88 03/10/17 07:55 97.1 103 20 168/94 98 Room Air 03/10/17 04:00 97.3 84 20 150/85 96 Room Air 03/10/17 04:00 86 03/10/17 00:00 99.9 95 20 142/88 Room Air 03/10/17 00:00 97 03/09/17 20:40 121 149/79 03/09/17 20:00 114 03/09/17 20:00 99.1 121 20 149/79 95 Nasal Cannula 2.0 03/09/17 16:28 97.2 99 20 140/75 96 Room Air 03/09/17 16:00 98 General Appearance: WD/WN, alert EENT: PERRL/EOMI, pale conjunctivae Neck: supple, no JVD Rhythm: NSR Cardiovascular: normal rate, regular rhythm, no gallop/murmur Respiratory/Chest: lungs clear Abdomen: non tender, soft Extremities: no swelling Intake and Output 03/09/17 03/10/17 19:00 07:00 Intake Total 535 ml 60 ml Output Total 400 ml 200 ml Balance 135 ml -140 ml Intake Oral 480 ml IV Total 55 ml 60 ml Output Urine Total 400 ml 200 ml Laboratory Tests Test 03/10/17 07:33 White Blood Count 8.9 K/UL (4.8-10.8) Red Blood Count 3.92 M/UL (4.20-5.40) L Hemoglobin 9.8 G/DL (12.0-16.0) L Hematocrit 31.7 % (37.0-47.0) L Mean Corpuscular Volume 81 FL (80-99) Mean Corpuscular Hemoglobin 24.9 PG (27.0-31.0) L Mean Corpuscular Hemoglobin Concent 30.8 G/DL (32.0-36.0) L Red Cell Distribution Width 14.2 % (11.6-14.8) Platelet Count 327 K/UL (150-450) Mean Platelet Volume 6.1 FL (6.5-10.1) L Neutrophils (%) (Auto) 58.8 % (45.0-75.0) Lymphocytes (%) (Auto) 24.9 % (20.0-45.0) Monocytes (%) (Auto) 9.0 % (1.0-10.0) Eosinophils (%) (Auto) 6.7 % (0.0-3.0) H Basophils (%) (Auto) 0.6 % (0.0-2.0) Prothrombin Time 10.4 SEC (9.30-11.50) Prothromb Time International Ratio 1.0 (0.9-1.1) Activated Partial Thromboplast Time 30 SEC (23-33) Sodium Level 141 mEQ/L (135-145) Potassium Level 3.8 mEQ/L (3.4-4.9) Chloride Level 107 mEQ/L (98-107) Carbon Dioxide Level 25 mEQ/L (20-30) Anion Gap 9 (5-15) Blood Urea Nitrogen 7 mg/dL (7-23) Creatinine 0.8 mg/dL (0.5-0.9) Estimat Glomerular Filtration Rate mL/min (>60) Glucose Level 94 mg/dL (74-106) Calcium Level 8.7 mg/dL (8.6-10.2) Phosphorus Level 1.9 mg/dL (2.5-4.8) L Magnesium Level 2.2 mg/dL (1.7-2.5) GRADY VARMA Mar 10, 2017 15:19
[2017-03-10] MEDS ORDERED: Ertapenem 1 GM in NS 55 ML IVPB SCH (17:00)
[2017-03-10] MEDS ORDERED: Mylanta II UD 30ml ORAL PRN (18:00)
--- NOTE | 2017-03-10 18:15 | Consultation ---
DATE OF CONSULTATION: 03/10/2017 UROLOGY CONSULTATION ATTENDING AND CONSULTING PHYSICIAN: Otoniel Nicole M.D. CHIEF COMPLAINT/HISTORY OF PRESENT ILLNESS: Asked by Dr. Nicole to evaluate this is a 71-year-old, female regarding history of right-sided kidney stones. Briefly, the patient has a history of multiple medical issues. She presented to the hospital with a gastrointestinal bleed. She is maintained on Coumadin for DVT at baseline. During her evaluation, she had a CT scan done which revealed a renal pelvic stone and some dilation of the proximal ureter without evidence of a clear-cut ureteral stone, given the above I was asked to evaluate the patient. The patient denies to me any right-sided flank or back pain or difficulty voiding. She does not appear to have significant urologic issues or problems. PAST MEDICAL HISTORY: 1. Stroke. 2. Hip fracture. 3. DVT. 4. Depression. 5. Diverticulosis. 6. Hemorrhoids. PAST SURGICAL HISTORY: Esophagogastroduodenoscopy. MEDICATIONS: Please see chart for current medications administration details. ALLERGIES: No known drug allergies. SOCIAL HISTORY: Unremarkable for tobacco, alcohol, or drug use. [facility] a [facility]. FAMILY HISTORY: Noncontributory. REVIEW OF SYSTEMS: A 12-system review of systems essentially unremarkable outside of what is described above. PHYSICAL EXAMINATION: GENERAL: The patient is an older female awake and alert. Appears oriented in no obvious distress. HEENT: NC/AT. EOMI. Oropharynx clear. Chest within normal limits. NECK: Supple. ABDOMEN: Soft, nontender, and nondistended. EXTREMITIES: Warm and well perfused. No cyanosis, clubbing or edema. BACK: No CVA tenderness to percussion. NEUROLOGIC: Notable for hemiplegia. LABORATORY DATA: Sodium 141, potassium 3.8, chloride 107, bicarb 25, BUN 7, creatinine 0.8, glucose 94, calcium 8.7. LFTs within normal limits. White blood cell count 8.9, hematocrit 31.7, and platelets 327.000. PT, PTT, INR within normal limits. Urinalysis, specific gravity 1.020, pH 5.0. Dip test notable for 2+ protein, 4+ occult blood, positive nitrites, and 3+ leukocyte esterase. Microanalysis with 5 to 10 red blood cells per have high-power field, too numerous to count white blood per high-power field, and many bacteria seen. Urine culture with ESBL E. coli with multiple resistances. DIAGNOSTIC IMAGING: CT scan of the chest abdomen and pelvis reveals a stone in the right renal pelvis measuring 12 mm in size with calyceal dilatation and ill-defined stranding which is likely from an inflammatory. There is a calyceal stone in the upper pole calyx of the right kidney measuring 8 mm. Other small stones are noted. The proximal and mid right ureter is dilated with a fairly abrupt transition point just anterior to the psoas muscle. There is a faint intraluminal tract high attenuation material within the proximal dilated segment of the ureter but no distinct stone is seen at the transition point. The left kidney and collecting system appear unremarkable. Christianson catheter is in good position. ASSESSMENT AND PLAN: In summary, the patient is a 71-year-old female with a history of multiple medical issues presenting with a gastrointestinal bleed. Workup also revealed ESBL E. coli urinary tract infection and evidence of a right renal pelvic stone with some caliceal dilatation and upper pole stone in the right ear and the right kidney. Additionally, there was a transition point of hydroureteronephrosis with psoas muscle of unclear etiology as there is no stone visible in that area. Physical exam does not reveal any right CVA tenderness to percussion. Laboratory data is notable for anemia and urinary tract infection. Creatinine is within normal limits. Diagnostic imaging reveals the findings described above. The patient has likely long-standing kidney stones that wear noted on imaging done for her gastrointestinal bleed, stones of this caliber would not have risen overnight. There is some transition of the ureter from the hydronephrosis to regular over the psoas muscle. Without any evidence of a stone or clear-cut obstruction. The patient does not have any CVA tenderness and her creatinine is within normal limits. She is making copious amounts of urine. While there may be some role for eventual ureterostomy, double-J stent placement or ESWL on this patient given her overall clinical picture at this time, I would defer this for now. She does not appear to have a clear-cut obstruction and her creatinine is within normal limits. She has no clinical signs of pyelonephritis and she has recently had a gastrointestinal bleed. Once the patient is improved from a medical standpoint, the above measures could be reconsidered but I do not feel there is an emergent need to take her to the operating room immediately for such procedures. Given her recent infection and overall health, it may be dangerous to do so. Thank you for allowing me to participate in the care of this nice lady. Please do not hesitate to contact me with any questions that you may further have regarding her care. I will be happy to see her and take care of her with you as needed. Stefan Rodríguez M.D. DR: VONNIE JOB#: [id number] CC:
[2017-03-10 20:00] VITALS: BP 127/75
[2017-03-10] MEDS ORDERED: Iron Sucrose 100 MG in NS 55 ML IVPB SCH (21:00)
[2017-03-10] MEDS ORDERED: Miralax 17gm pkt ORAL PRN (21:00)
[2017-03-10] MEDS ORDERED: TraZODone 100mg tab ORAL SCH (21:00)
[2017-03-11] VITALS: BP 131/71
[2017-03-11 04:00] VITALS: BP 150/82
[2017-03-11 06:57] LABS: BASOPHILS % (AUTO) 0.4 % (0.0-2.0); EOSINOPHILS % (AUTO) 7.4 % (0.0-3.0); LYMPHOCYTES % (AUTO) 21.8 % (20.0-45.0); MEAN CORPUSCULAR HEMOGLOBIN 24.7 PG (27.0-31.0); MEAN CORPUSCULAR VOLUME 80 FL (80-99); MEAN PLATELET VOLUME 5.8 FL (6.5-10.1); MONOCYTES % (AUTO) 8.1 % (1.0-10.0); NEUTROPHILS % (AUTO) 62.3 % (45.0-75.0); PLATELET COUNT 340 K/UL (150-450); RED BLOOD COUNT 4.08 M/UL (4.20-5.40); RED CELL DISTRIBUTION WIDTH 14.7 % (11.6-14.8); WHITE BLOOD COUNT 10.6 K/UL (4.8-10.8)
[2017-03-11 07:03] LABS: ALANINE AMINOTRANSFERASE 6 U/L (3-33); ALBUMIN/GLOBULIN RATIO 0.6 (1.0-2.7); ANION GAP 11 (5-15); ASPARTATE AMINO TRANSFERASE 14 U/L (5-40); CALCIUM 8.8 mg/dL (8.6-10.2); CARBON DIOXIDE 23 mEQ/L (20-30); CHLORIDE 105 mEQ/L (98-107); CREATININE 0.7 mg/dL (0.5-0.9); HEMOLYSIS 5; MAGNESIUM 2.1 mg/dL (1.7-2.5); PHOSPHORUS 2.2 mg/dL (2.5-4.8); POTASSIUM 4.2 mEQ/L (3.4-4.9); SODIUM 139 mEQ/L (135-145); TOTAL PROTEIN 7.4 g/dL (6.6-8.7)
[2017-03-11] MEDS: Nystatin Powder 100,000 units/gm 15gm TOPIC SCH ×2 (08:06→12:47)
[2017-03-11] MEDS: Carvedilol 12.5mg tab ORAL SCH (08:06)
[2017-03-11] MEDS: Vitamin A&D Oint 2oz Tube TOPIC SCH (08:06)
[2017-03-11 08:35] VITALS: BP 132/68
--- NOTE | 2017-03-11 08:54 | General Progress Note ---
Assessment/Plan Problem List: (1) Anemia ICD Codes: D64.9 - Anemia, unspecified SNOMED: 039596552, [id number] Qualifiers: Qualified Codes: D50.8 - Other iron deficiency anemias (2) Gastrointestinal hemorrhage ICD Codes: K92.2 - Gastrointestinal hemorrhage, unspecified SNOMED: 60938190 Qualifiers: Qualified Codes: K92.2 - Gastrointestinal hemorrhage, unspecified (3) longterm resident ICD Codes: Z59.3 - Problems related to living in residential institution SNOMED: 395047700 Assessment/Plan s/p EGD and colonoscopy stable H&H fu labs recommend out patient capsule endoscopy Subjective ROS Limited/Unobtainable: Yes Allergies: Coded Allergies: No Known Allergies (Unverified , 09/18/16) Subjective no event over night Objective Last 24 Hour Vital Signs Date Time Temp Pulse Resp B/P Pulse Ox O2 Delivery O2 Flow Rate FiO2 03/11/17 08:35 98.4 92 20 132/68 95 Room Air 03/11/17 08:06 78 132/68 03/11/17 08:05 78 132/68 03/11/17 07:35 97.5 03/11/17 04:00 97.5 76 20 150/82 98 Room Air 03/11/17 00:00 97.9 81 18 131/71 98 Room Air 03/10/17 20:22 87 142/70 03/10/17 20:00 97.7 86 20 127/75 96 Room Air 03/10/17 17:01 84 134/68 03/10/17 13:40 156/83 03/10/17 12:07 87 164/109 03/10/17 12:00 89 03/10/17 11:57 98.1 87 20 164/109 97 Room Air Intake and Output 03/10/17 03/11/17 19:00 07:00 Intake Total 675 ml 60 ml Output Total 150 ml 1200 ml Balance 525 ml -1140 ml Intake Oral 620 ml IV Total 55 ml 60 ml Output Urine Total 150 ml 1200 ml Laboratory Tests 03/11/17 05:43: White Blood Count 10.6, Red Blood Count 4.08L, Hemoglobin 10.1L, Hematocrit 32.6L, Mean Corpuscular Volume 80, Mean Corpuscular Hemoglobin 24.7L, Mean Corpuscular Hemoglobin Concent 31.0L, Red Cell Distribution Width 14.7, Platelet Count 340, Mean Platelet Volume 5.8L, Neutrophils (%) (Auto) 62.3, Lymphocytes (%) (Auto) 21.8, Monocytes (%) (Auto) 8.1, Eosinophils (%) (Auto) 7.4H, Basophils (%) (Auto) 0.4, Sodium Level 139, Potassium Level 4.2, Chloride Level 105, Carbon Dioxide Level 23, Anion Gap 11, Blood Urea Nitrogen 6L, Creatinine 0.7, Estimat Glomerular Filtration Rate , Glucose Level 87, Calcium Level 8.8, Phosphorus Level 2.2L, Magnesium Level 2.1, Total Bilirubin < 0.2, Aspartate Amino Transf (AST/SGOT) 14, Alanine Aminotransferase (ALT/SGPT) 6, Alkaline Phosphatase 39, Total Protein 7.4, Albumin 3.0L, Globulin 4.4, Albumin/ Globulin Ratio 0.6L Height (Feet): 5 Height (Inches): 6.00 Weight (Pounds): 157 General Appearance: no apparent distress EENT: normal ENT inspection Neck: supple Cardiovascular: normal rate Respiratory/Chest: lungs clear Abdomen: normal bowel sounds, non tender, soft Extremities: non-tender ANGÉLICA DANIELS Mar 11, 2017 08:54
[2017-03-11] MEDS ORDERED: DULoxetine 30mg cap ORAL SCH (09:00)
[2017-03-11 11:30] VITALS: BP 128/65
--- NOTE | 2017-03-11 12:09 | General Progress Note ---
Assessment/Plan Assessment/Plan 1. Anemia secondary to gastrointestinal bleed. Had esophagogastroduodenoscopy performed. ---> showed diverticulosis, probable bleeding from diverticular flaring. No recurrent bleeding 2. R Deep venous thrombosis of the superficial femoral vein, now off anticoagulation, is s/p ivc filter 3. Failure to thrive. A CAT scan of the chest, abdomen, and pelvis ordered, which shows moderate inflammation, right hydronephrosis, diverticulitis, Christianson catheter in good position, and osteoporosis. 4. Osteoporosis. 5. Coagulopathy secondary to Coumadin, improved off coumadin 6. Anemia secondary to chronic disease. 7. Hypocalcemia. 8. Leukocytosis, improved. Subjective Date patient seen: Mar 10, 2017 Constitutional: Reports: no symptoms HEENT: Reports: no symptoms Cardiovascular: Reports: no symptoms Respiratory: Reports: no symptoms Gastrointestinal/Abdominal: Reports: no symptoms Genitourinary: Reports: no symptoms Neurologic/Psychiatric: Reports: no symptoms Endocrine: Reports: no symptoms Hematologic/Lymphatic: Reports: anemia Allergies: Coded Allergies: No Known Allergies (Unverified , 09/18/16) Subjective to be discharged tomorrow Objective Last 24 Hour Vital Signs Date Time Temp Pulse Resp B/P Pulse Ox O2 Delivery O2 Flow Rate FiO2 03/11/17 11:30 98.0 95 20 128/65 95 Room Air 03/11/17 08:35 98.4 92 20 132/68 95 Room Air 03/11/17 08:06 78 132/68 03/11/17 08:05 78 132/68 03/11/17 07:35 97.5 03/11/17 04:00 97.5 76 20 150/82 98 Room Air 03/11/17 00:00 97.9 81 18 131/71 98 Room Air 03/10/17 20:22 87 142/70 03/10/17 20:00 97.7 86 20 127/75 96 Room Air 03/10/17 17:01 84 134/68 03/10/17 13:40 156/83 Intake and Output 03/10/17 03/11/17 19:00 07:00 Intake Total 675 ml 60 ml Output Total 150 ml 1200 ml Balance 525 ml -1140 ml Intake Oral 620 ml IV Total 55 ml 60 ml Output Urine Total 150 ml 1200 ml Laboratory Tests 03/11/17 05:43: White Blood Count 10.6, Red Blood Count 4.08L, Hemoglobin 10.1L, Hematocrit 32.6L, Mean Corpuscular Volume 80, Mean Corpuscular Hemoglobin 24.7L, Mean Corpuscular Hemoglobin Concent 31.0L, Red Cell Distribution Width 14.7, Platelet Count 340, Mean Platelet Volume 5.8L, Neutrophils (%) (Auto) 62.3, Lymphocytes (%) (Auto) 21.8, Monocytes (%) (Auto) 8.1, Eosinophils (%) (Auto) 7.4H, Basophils (%) (Auto) 0.4, Sodium Level 139, Potassium Level 4.2, Chloride Level 105, Carbon Dioxide Level 23, Anion Gap 11, Blood Urea Nitrogen 6L, Creatinine 0.7, Estimat Glomerular Filtration Rate , Glucose Level 87, Calcium Level 8.8, Phosphorus Level 2.2L, Magnesium Level 2.1, Total Bilirubin < 0.2, Aspartate Amino Transf (AST/SGOT) 14, Alanine Aminotransferase (ALT/SGPT) 6, Alkaline Phosphatase 39, Total Protein 7.4, Albumin 3.0L, Globulin 4.4, Albumin/ Globulin Ratio 0.6L Height (Feet): 5 Height (Inches): 6.00 Weight (Pounds): 157 General Appearance: alert EENT: normal ENT inspection Neck: supple Cardiovascular: regular rhythm Respiratory/Chest: normal breath sounds Abdomen: non tender Extremities: non-tender Edema: 1+ Leg (L), 1+ Leg (R) Edema: trace edema Neurologic: abnormal gait Skin: warm/dry Knae Hughes Mar 11, 2017 12:09
--- NOTE | 2017-03-11 15:40 | Infectious Diseases Prog Note ---
Assessment/Plan Assessment/Plan ASSESSMENT: 71 y/o female admitted for diverticular bleed, incidentally found to have acute RLE DVT s/p IVC filter, and now confirmed to have ESBL E coli UTI in the setting of a 12mm R renal pelvis stone with evidence of a recently passed R ureteral stone but no persistent ureteral obstruction for which urology input was solicited. Also, she has a shallow open sore on her L hand dorsally that has good granulation tissue at the base w/o purulence and w/o surrounding cellulitis. although this is colonized with MRSA, it is not infected, and should resolve over time with continued wound care. 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 RLE DVT, h/o DVT osteoporosis anemia secondary to chronic disease Hypocalcemia Plan Ertapenem 1gm IV q24hr, day 2 of 10 okay for dispo to SNF from ID standpoint monitor owens output, d/c owens if no longer indicated wound care to L hand monitor CBC, chem panel Subjective Constitutional: Reports: no symptoms Allergies: Coded Allergies: No Known Allergies (Unverified , 09/18/16) Objective Vital Signs Last 24 Hour Vital Signs Date Time Temp Pulse Resp B/P Pulse Ox O2 Delivery O2 Flow Rate FiO2 03/11/17 11:30 98.0 95 20 128/65 95 Room Air 03/11/17 08:35 98.4 92 20 132/68 95 Room Air 03/11/17 08:06 78 132/68 03/11/17 08:05 78 132/68 03/11/17 07:35 97.5 03/11/17 04:00 97.5 76 20 150/82 98 Room Air 03/11/17 00:00 97.9 81 18 131/71 98 Room Air 03/10/17 20:22 87 142/70 03/10/17 20:00 97.7 86 20 127/75 96 Room Air 03/10/17 17:01 84 134/68 Height (Feet): 5 Height (Inches): 6.00 Weight (Pounds): 157 General Appearance: no acute distress HEENT: anicteric Respiratory/Chest: lungs clear Cardiovascular: normal rate, regular rhythm Abdomen: normal bowel sounds, soft, non tender Extremities: no cyanosis, no clubbing, no edema Skin: no rash Lymphatic: no neck adenopathy, no groin adenopathy Laboratory Tests Test 03/11/17 05:43 White Blood Count 10.6 K/UL (4.8-10.8) Red Blood Count 4.08 M/UL (4.20-5.40) L Hemoglobin 10.1 G/DL (12.0-16.0) L Hematocrit 32.6 % (37.0-47.0) L Mean Corpuscular Volume 80 FL (80-99) Mean Corpuscular Hemoglobin 24.7 PG (27.0-31.0) L Mean Corpuscular Hemoglobin Concent 31.0 G/DL (32.0-36.0) L Red Cell Distribution Width 14.7 % (11.6-14.8) Platelet Count 340 K/UL (150-450) Mean Platelet Volume 5.8 FL (6.5-10.1) L Neutrophils (%) (Auto) 62.3 % (45.0-75.0) Lymphocytes (%) (Auto) 21.8 % (20.0-45.0) Monocytes (%) (Auto) 8.1 % (1.0-10.0) Eosinophils (%) (Auto) 7.4 % (0.0-3.0) H Basophils (%) (Auto) 0.4 % (0.0-2.0) Sodium Level 139 mEQ/L (135-145) Potassium Level 4.2 mEQ/L (3.4-4.9) Chloride Level 105 mEQ/L (98-107) Carbon Dioxide Level 23 mEQ/L (20-30) Anion Gap 11 (5-15) Blood Urea Nitrogen 6 mg/dL (7-23) L Creatinine 0.7 mg/dL (0.5-0.9) Estimat Glomerular Filtration Rate mL/min (>60) Glucose Level 87 mg/dL (74-106) Calcium Level 8.8 mg/dL (8.6-10.2) Phosphorus Level 2.2 mg/dL (2.5-4.8) L Magnesium Level 2.1 mg/dL (1.7-2.5) Total Bilirubin < 0.2 mg/dL (0.0-1.2) Aspartate Amino Transf (AST/SGOT) 14 U/L (5-40) Alanine Aminotransferase (ALT/SGPT) 6 U/L (3-33) Alkaline Phosphatase 39 U/L (35-104) Total Protein 7.4 g/dL (6.6-8.7) Albumin 3.0 g/dL (3.5-5.2) L Globulin 4.4 g/dL Albumin/Globulin Ratio 0.6 (1.0-2.7) L Current Medications Medications (Trade) Dose Ordered Sig/Claudia Route PRN Reason Start Time Stop Time Status Last Admin Dose Admin Acetaminophen (Tylenol) 650 mg Q4H PRN ORAL Mild Pain/Temp > 100.5 03/10/17 15:00 04/09/17 14:59 03/11/17 06:36 Al Hydroxide/Mg Hydroxide (Mylanta II) 30 ml Q6H PRN ORAL dyspepsia 03/10/17 18:00 04/09/17 17:59 Amlodipine Besylate (Norvasc) 2.5 mg DAILY ORAL 03/10/17 16:00 04/09/17 15:59 03/11/17 08:05 Amlodipine Besylate (Norvasc) 5 mg DAILY PRN ORAL if SBP >155 03/11/17 09:00 04/10/17 08:59 Carvedilol (Coreg) 12.5 mg EVERY 12 HOURS ORAL 03/10/17 21:00 04/09/17 20:59 03/11/17 08:06 Dextrose (Dextrose 50%) STAT PRN IV Hypoglycemia 03/10/17 15:00 04/09/17 14:59 Diphenhydramine HCl (Benadryl) 25 mg Q6H PRN ORAL Itching/Pruritis 03/10/17 18:00 04/09/17 17:59 Duloxetine HCl (Cymbalta) 90 mg DAILY ORAL 03/11/17 09:00 04/10/17 08:59 03/11/17 08:06 Ertapenem 1 gm/ Sodium Chloride 55 ml @ 110 mls/hr Q24H IVPB 03/10/17 17:00 03/15/17 16:59 03/10/17 17:03 Iron Sucrose/ Sodium Chloride (Venofer/Sodium Chloride) 60 ml @ 240 mls/hr BEDTIME IVPB 03/10/17 21:00 03/11/17 21:01 03/10/17 20:22 Morphine Sulfate (Morphine Sulfate) 2 mg Q4H PRN IVP severe Pain (Pain Scale 7-10) 03/10/17 15:00 03/17/17 14:59 Nitroglycerin (Ntg) 0.4 mg Q5M X 3 DOSES PRN SL Prn Chest Pain 03/10/17 15:00 04/09/17 14:59 Nystatin (Nystop Powder) 1 applic THREE TIMES A DAY TOPIC 03/10/17 18:00 04/09/17 17:59 03/11/17 12:47 Ondansetron HCl (Zofran) 4 mg Q6H PRN IVP Nausea & Vomiting 03/10/17 18:00 04/09/17 17:59 Pantoprazole (Protonix) 40 mg ACBREAKFAST ORAL 03/11/17 06:30 04/10/17 06:29 03/11/17 05:50 Polyethylene Glycol (Miralax) 17 gm HSPRN PRN ORAL Constipation 03/10/17 21:00 04/09/17 20:59 Temazepam (Restoril) 15 mg HSPRN PRN ORAL Insomnia 03/10/17 21:00 03/17/17 20:59 Trazodone HCl (Desyrel) 150 mg BEDTIME ORAL 03/10/17 21:00 04/09/17 20:59 03/10/17 20:22 Vitamin A/Vitamin D (A & D Oint) 1 applic EVERY 12 HOURS TOPIC 03/10/17 21:00 04/09/17 20:59 03/11/17 08:06 Neeraj Mora M.D. Mar 11, 2017 15:40
--- NOTE | 2017-03-11 15:44 | Pulmonology Progress Note ---
Assessment/Plan Problems: (1) Gastrointestinal hemorrhage (2) Anemia (3) Prolonged INR (4) DVT (deep venous thrombosis) (5) History of CVA (cerebrovascular accident) (6) skilled nursing resident Assessment/Plan pt has DVt IVC filter done IV fluids check h/h, stable awaiting Urology evaluation for Hydronephrosis Subjective Allergies: Coded Allergies: No Known Allergies (Unverified , 09/18/16) Objective Last 24 Hour Vital Signs Date Time Temp Pulse Resp B/P Pulse Ox O2 Delivery O2 Flow Rate FiO2 03/11/17 11:30 98.0 95 20 128/65 95 Room Air 03/11/17 08:35 98.4 92 20 132/68 95 Room Air 03/11/17 08:06 78 132/68 03/11/17 08:05 78 132/68 03/11/17 07:35 97.5 03/11/17 04:00 97.5 76 20 150/82 98 Room Air 03/11/17 00:00 97.9 81 18 131/71 98 Room Air 03/10/17 20:22 87 142/70 03/10/17 20:00 97.7 86 20 127/75 96 Room Air 03/10/17 17:01 84 134/68 Intake and Output 03/10/17 03/11/17 19:00 07:00 Intake Total 675 ml 60 ml Output Total 150 ml 1200 ml Balance 525 ml -1140 ml Intake Oral 620 ml IV Total 55 ml 60 ml Output Urine Total 150 ml 1200 ml Objective General Appearance: WD/WN HEENT: normocephalic Respiratory/Chest: chest wall non-tender, lungs clear Cardiovascular: normal peripheral pulses, normal rate Abdomen: normal bowel sounds, soft, non tender Genitourinary: normal external genitalia Extremities: no cyanosis Skin: no rash Neurologic/Psychiatric: foot orthopedist II-XII grossly normal Lymphatic: no neck adenopathy Laboratory Tests 03/11/17 05:43: White Blood Count 10.6, Red Blood Count 4.08L, Hemoglobin 10.1L, Hematocrit 32.6L, Mean Corpuscular Volume 80, Mean Corpuscular Hemoglobin 24.7L, Mean Corpuscular Hemoglobin Concent 31.0L, Red Cell Distribution Width 14.7, Platelet Count 340, Mean Platelet Volume 5.8L, Neutrophils (%) (Auto) 62.3, Lymphocytes (%) (Auto) 21.8, Monocytes (%) (Auto) 8.1, Eosinophils (%) (Auto) 7.4H, Basophils (%) (Auto) 0.4, Sodium Level 139, Potassium Level 4.2, Chloride Level 105, Carbon Dioxide Level 23, Anion Gap 11, Blood Urea Nitrogen 6L, Creatinine 0.7, Estimat Glomerular Filtration Rate , Glucose Level 87, Calcium Level 8.8, Phosphorus Level 2.2L, Magnesium Level 2.1, Total Bilirubin < 0.2, Aspartate Amino Transf (AST/SGOT) 14, Alanine Aminotransferase (ALT/SGPT) 6, Alkaline Phosphatase 39, Total Protein 7.4, Albumin 3.0L, Globulin 4.4, Albumin/ Globulin Ratio 0.6L MARYAM BATES Mar 11, 2017 15:44
--- NOTE | 2017-03-12 13:43 | Discharge Summary ---
Discharge Summary Hospital Course Date of Admission Mar 05, 2017 at 01:30 Date of Discharge Mar 11, 2017 at 14:10 Admitting Diagnosis GI bleed HPI Alejandra Roque is a 71 year old female who was admitted on Mar 05, 2017 at 01: 30 for Gastrointestinal Bleed Hospital Course dc summary#[id number] Discharge Medications New Medications: Ertapenem (Invanz) 1 Gm Vial 1 GM IM DAILY for 10 Days, VIAL Continued Medications: Acetaminophen (Acetaminophen) 650 Mg/20.3 Ml Solution 650 MG ORAL Q4HR PRN for Prn Headache/Temp > 101, ML 0 Refills Carvedilol (Coreg) 12.5 Mg Tablet 12.5 MG ORAL EVERY 12 HOURS, TAB Clonidine HCl (Clonidine HCl) 0.1 Mg Tablet 0.1 MG GT Q4HR PRN for SBP >160, TAB Trazodone* (Trazodone*) 150 Mg Tablet 150 MG ORAL BEDTIME, TAB Discharge Condition Upon Discharge: stable Discharge Disposition Patient was discharged to SNF/Subacute Facility(03) Discharge Diagnoses: Jani (Heather)Yolanda NP Mar 12, 2017 13:43
--- NOTE | 2017-03-13 11:16 | Discharge Summary 2 SIG ---
DATE OF ADMISSION: 03/05/2017 DATE OF DISCHARGE: 03/11/2017 REASON FOR ADMISSION: The patient presented with complaints of GI bleeding versus vaginal bleeding. She has been passing some dark blood. She denied pain, fever, nausea, vomiting, and diarrhea. The patient was on the Coumadin for DVT in the past. She denies any extremity pain or swelling. Workup in the emergency room revealed pulse oximetry stable on room air. The patient was normotensive and afebrile. White blood count 12.9, hemoglobin 9.3, and hematocrit 29.8. Troponin was negative. Lipase 51. INR 1.3. Urinalysis has pyuria, bacteria, and +3 leukocyte esterase as well as +4 occult blood. EKG shows normal sinus rate. No acute ischemic changes. Chest x-ray revealed no acute cardiopulmonary disease. The patient was admitted to telemetry floor for further management. ADMITTING DIAGNOSES: 1. Gastrointestinal hemorrhage. 2. Anemia secondary to gastrointestinal bleeding. 3. Coagulopathy secondary to Coumadin use. 4. Urinary tract infection. HOSPITAL STAY: The patient was admitted. GI consult and ID consult initially were called. The patient was on the empiric antibiotics. Urine culture was positive for E. coli ESBL. Antibiotic regimen optimized as per ID. GI seen the patient for GI bleeding. Stool OB positive x2. The patient undergone upper endoscopy with biopsy, which revealed distal gastritis status post biopsy. Biopsy revealed no H. pylori, no metaplasia, and no dysplasia. Findings were consistent with chronic gastritis with no activity. On 03/08/2017, the patient undergone colonoscopy, which revealed diverticulosis and internal and external hemorrhoids. GI suggested to start diet first liquid and then advance as tolerated. Continue PPI. GI also recommended outpatient capsule endoscopy. Hemoglobin and hematocrit remained stable on the baseline. No further point down. Cardiology consult was requested due to the cover tachycardia on the telemetry. Serial troponins were negative. EKG revealed no acute ischemic changes. [employer] did not pursue any further test. Echocardiogram done in 2017 this year revealed preserved ejection fraction of 55%. Blood pressure was elevated. The patient was started on calcium channel nathalie/amlodipine. Potassium and magnesium were replaced as needed. Venous duplex revealed acute DVT right lower extremity and superficial femoral vein. Due to anemia and coagulopathy, the patient could not be anticoagulated. IVC filter was inserted. IVC filter was placed on 03/09/2017. CT of the chest, abdomen and pelvis revealed moderate inflammation with right hydronephrosis with dilatation of the renal pelvis and calyces. Obstructing 12 mm stone seen within the renal pelvis. Hydronephrotic ureter transition abruptly in the mid ureter level. No stone seen at this transition. Urology consult was subsequently requested for finding of the right hydronephrosis. Urologist seen and evaluated the patient and stated that the patient has likely long-standing kidney stones, which were noted on imaging of her gastrointestinal bleeding. According to urologist, stone of this caliber would not overnight. The patient did not have any CVA tenderness. Creatinine was within normal limits. She made copious amount of the urine. As per Urology while there could be some role for eventual ureterostomy double-J stent placement or ESWL on this patient given her overall clinical picture at this time it would be fair any procedure. According to the urologist, the patient did not appear to have a clear-cut obstruction and her creatinine was within normal limits. She has no clinical signs of pyelonephritis and she has recently had GI bleeding. Once the patient improved from the medical standpoint, the above measure could be considered, but he did not feel that it was emergent need to take her to the operating room immediately. The patient was stable for discharge from all consultants. DISCHARGE DIAGNOSES: 1. Lower gastrointestinal hemorrhage. 2. Anemia secondary to lower gastrointestinal bleeding. 3. Status post upper endoscopy. 4. Diffuse gastritis. 5. Status post colonoscopy. 6. Diverticulosis. 7. Internal and external hemorrhoids. 8. Acute deep venous thrombosis right lower extremity. 9. Status post inferior vena cava filter placement. 10. Hypertension. 11. Right hydronephrosis. 12. Kidney stones. 13. Urinary tract infection with Escherichia Coli Extended-Spectrum Beta-Lactamase. DISCHARGE MEDICATIONS: See medication reconciliation list. DISCHARGE INSTRUCTIONS: The patient was discharged to correction facility. Continue antibiotics for additional 10 days as outlined in medication reconciliation list. Otoniel Nicole M.D. I have been assigned to dictate discharge summary on this account and I was not involved in the patient's management. Yolanda Gunter N.P. (vanchtein) DR: CAL JOB#: [id number] CC:
== END 2017-03-11 14:10 | DRG 244 ==
LOC: EDBD 00:25 → EMR 00:59 → 2E 01:30 → EDBEDREQ 01:38 → 4W 03-10 14:30
PROC: 30233N1 Transfusion of Nonautologous Red Blood Cells into Peripheral Vein, Percutaneous Approach (ICD-10-PCS; 2017-03-07)
PROC: 0DB68ZX Excision of Stomach, Via Natural or Artificial Opening Endoscopic, Diagnostic (ICD-10-PCS; principal; 2017-03-07 08:04)
PROC: 0DJD8ZZ Inspection of Lower Intestinal Tract, Via Natural or Artificial Opening Endoscopic (ICD-10-PCS; 2017-03-08)
PROC: 06H03DZ Insertion of Intraluminal Device into Inferior Vena Cava, Percutaneous Approach (ICD-10-PCS; 2017-03-09)
DX: K57.91 Diverticulosis of intestine, part unspecified, without perforation or abscess with bleeding (principal); I47.2 Ventricular tachycardia; D68.9 Coagulation defect, unspecified; F03.90 Unspecified dementia, unspecified severity, without behavioral disturbance, psychotic disturbance, mood disturbance, and anxiety; N39.0 Urinary tract infection, site not specified; N13.2 Hydronephrosis with renal and ureteral calculous obstruction; I10 Essential (primary) hypertension; M81.0 Age-related osteoporosis without current pathological fracture; K21.9 Gastro-esophageal reflux disease without esophagitis; K29.70 Gastritis, unspecified, without bleeding; Z79.01 Long term (current) use of anticoagulants; Z66 Do not resuscitate; Z86.73 Personal history of transient ischemic attack (TIA), and cerebral infarction without residual deficits; D50.0 Iron deficiency anemia secondary to blood loss (chronic); B96.20 Unspecified Escherichia coli [E. coli] as the cause of diseases classified elsewhere; Z16.12 Extended spectrum beta lactamase (ESBL) resistance; K64.8 Other hemorrhoids; K64.4 Residual hemorrhoidal skin tags; E83.51 Hypocalcemia; Z22.322 Carrier or suspected carrier of Methicillin resistant Staphylococcus aureus; I82.411 Acute embolism and thrombosis of right femoral vein; R62.7 Adult failure to thrive; L98.499 Non-pressure chronic ulcer of skin of other sites with unspecified severity
CPT/HCPCS: 36415; 71010; 71260; 74000; 74177; 76937; 80048; 80053; 81003; 82150; 82270; 82378; 82607; 82728; 82746; 82962; 83540; 83550; 83615; 83690; 83735; 84100; 84484; 85007; 85025; 85044; 85060; 85610; 85651; 85730; 86850; 86900; 86901; 86920; 87070; 87081; 87086; 87181; 87205; 93005; 93970; 94003; 94150; J2250; J2405; J8499